=== PATIENT | female | born 1985 | race Caucasian/White ===

== ENCOUNTER 2017-05-27 01:12 | Observation (INO) | payer OTHER ==
[2017-05-27] MEDS ORDERED: MORPHINE SULFATE 4 MG/ML SYRINGE IV STA (01:58)
[2017-05-27] MEDS ORDERED: SODIUM CHLORIDE 0.9% 1,000 ML IV STA (01:58)
[2017-05-27] MEDS ORDERED: ONDANSETRON 4 MG/2 ML VIAL IVP STA ×2 (01:58→04:26)
[2017-05-27] MEDS ORDERED: RX INFO: IV CONTRAST WAS GIVEN 1 EACH MISC MISCELLANE PRN (02:00)
[2017-05-27] MEDS ORDERED: KETOROLAC 30 MG/ML 1 ML VIAL IVP STA (02:24)
[2017-05-27 02:35] LABS: Appearance,Urine Clear (Clear); PH, Urine 5.5 (5.0-8.0); Protein,Urine Negative (Negative); Specific Gravity,Urine 1.014 (1.001-1.035)
[2017-05-27 02:36] LABS: Basophils # (A) 0.1 k/uL (0-0.2); Basophils % (A) 1 %; Bilirubin,Urine Negative (Negative); CH 26.5; CHCM 33.1; Eosinophils # (A) 0.2 k/uL (0-0.7); Eosinophils % (A) 2 %; Glucose,Urine (UA) Trace (Negative); HCT 35.1 % (34.0-46.0); HDW 2.75; HGB 11.5 gm/dL (11.4-16.0); Ketones,Urine Negative (Negative); Leukocyte Esterase,Urine Negative (Negative); Luc # (Auto) 0.21; Luc % (Auto) 2; Lymphocytes # (A) 2.5 k/uL (1.0-4.8); Lymphocytes % (A) 22 %; MCH 26.3 pg (25.0-35.0); MCHC 32.7 g/dL (31.0-37.0); MCV 80.5 fL (80.0-100.0); Mean Platelet Volume 7.2; Monocytes # (A) 0.8 k/uL (0-1.0); Monocytes % (A) 7 %; Neutrophils # (A) 7.6 k/uL (1.3-7.7); Neutrophils % (A) 67 %; Nitrite,Urine Negative (Negative); RBC 4.36 m/uL (3.80-5.40); RDW 14.2 % (11.5-15.5); UA Billing (MACRO vs. MICRO) CHEM; Urobilinogen,Urine <2.0 mg/dL (<2.0); WBC 11.4 k/uL (3.8-10.6); WBC (Perox) 11.02
[2017-05-27 02:43] LABS: ALT 30 U/L (9-52); AST 15 U/L (14-36); Alkaline Phosphatase 81 U/L (38-126); Amylase 59 U/L (30-110); Anion Gap 8 mmol/L; Blood Urea Nitrogen 11 mg/dL (7-17); Carbon Dioxide 26 mmol/L (22-30); Chloride 104 mmol/L (98-107); Glucose 96 mg/dL (74-99); Non-African American GFR(MDRD) >60 (>60 ml/min/1.73 sqM); Potassium 4.1 mmol/L (3.5-5.1); Sodium 138 mmol/L (137-145); Total Bilirubin 0.2 mg/dL (0.2-1.3); Total Protein 6.4 g/dL (6.3-8.2)
[2017-05-27 02:45] LABS: Partial Thromboplastin Time 24.5 sec (22.0-30.0)
[2017-05-27 02:47] LABS: Prothrombin Time 10.1 sec (9.0-12.0)
--- NOTE | 2017-05-27 03:34 | CT ---
EXAM: CT Abdomen and Pelvis With Intravenous Contrast CLINICAL HISTORY: Reason: RLQ pain, Hernia mesh repair TECHNIQUE: Axial computed tomography images of the abdomen and pelvis with intravenous contrast. CTDI is 36.30 mGy and DLP is 1376.10 mGy-cm. This CT exam was performed using one or more of the following dose reduction techniques: automated exposure control, adjustment of the mA and/or kV according to patient size, and/or use of iterative reconstruction technique. COMPARISON: 10/07/2016 FINDINGS: Lower thorax: No acute findings. ABDOMEN: Liver: Diffuse fatty infiltration of the liver. Gallbladder and bile ducts: Unremarkable. No calcified stones. No ductal dilation. Pancreas: Unremarkable. No mass. No ductal dilation. Spleen: Unremarkable. No splenomegaly. Adrenals: Unremarkable. No mass. Kidneys and ureters: Unremarkable. No solid mass. No hydronephrosis. Stomach and bowel: Unremarkable. No obstruction. No mucosal thickening. Appendix: Normal appendix visualized. PELVIS: Bladder: Unremarkable. No mass. Reproductive: Unremarkable as visualized. ABDOMEN and PELVIS: Intraperitoneal space: Unremarkable. No free air. No significant fluid collection. Bones/joints: No acute fracture. No dislocation. Soft tissues: Redemonstration of very small fat-containing inguinal hernia. Stable postsurgical changes in the right inguinal region from hernia repair. No recurrence of hernia. More superiorly stable postsurgical changes adjacent to the abdominal rectus muscle. There is a 4.0 x 2.9 cm spiculated soft tissue collection which is isodense to the musculature. Previously this measured 3.8 2.9 cm. There is increased fat stranding noted within the subcutaneous fat extending out to the skin surface. The overlying skin appears indurated and inflamed, possibly from cellulitis. Etiology is uncertain, but this may be an old scar, granulation tissue. Vasculature: Unremarkable. No abdominal aortic aneurysm. Lymph nodes: Unremarkable. No enlarged lymph nodes. IMPRESSION: 1. Normal appendix visualized. 2. No acute intra-abdominal abnormalities. 3. Stable postsurgical changes within the right anterior abdomen adjacent to the rectus muscle. 4.0 x 2.9 cm spiculated soft tissue adjacent to the rectus muscle with overlying inflammation of the subcutaneous fat extending to the skin surface, which appears indurated and inflamed, possibly from cellulitis. This collection of soft tissue may represent old scar or granulation tissue.
[2017-05-27] MEDS ORDERED: PIPERACILLIN-TAZOBACTAM 3.375 GM in DEXTROSE/WATER 1 50ML.BAG IVPB STA (04:09)
--- NOTE | 2017-05-27 04:10 | ED ---
Abdominal Pain HPI - General Source: patient Mode of arrival: ambulatory Limitations: no limitations <Madeline Roberts - Last Filed: 05/27/17 04:23> <Linden Moran - Last Filed: 05/27/17 07:36> - General Chief Complaint: Abdominal Pain Stated Complaint: abd pain Time Seen by Provider: 05/27/17 01:40 - History of Present Illness Initial Comments: 31-year-old female presents emergency Department chief complaint of right lower quadrant pain over previous inguinal hernia repair site. Patient reports that she had the inguinal hernia repair by Dr. Ferrell a few years ago. Patient reports that initially the mesh did not adhere well and had a have a second repair. Patient reports that on Thursday she did complete a D & C by physicians in [place]. Patient reports that the fetus was approximately 6 weeks and it was an elective . Patient reports she's had no dysuria or any vaginal discharge besides minor spotting for the past few days. She reports that they had placed her on azithromycin and Flagyl after the surgery. She reports that she completed those antibiotics. Patient states she's had no specific fevers or chills. She reports that over the past day and half the by mouth the right lower quadrant occurred numbness radiating up the abdomen towards right flank. Patient denies any recent fever, chills, shortness of breath, chest pain, back pain, numbness or tingling, dysuria or hematuria, constipation or diarrhea, headaches or visual changes, or any other current symptoms (Madeline Roberts) - Related Data Home Medications Medication Instructions Recorded Confirmed Ibuprofen [Motrin] 800 mg PO Q8HR PRN 05/22/14 05/27/17 Allergies Allergy/AdvReac Type Severity Reaction Status Date / Time No Known Allergies Allergy Verified 05/27/17 05:21 Review of Systems ROS Other: All systems not noted in ROS Statement are negative. <Madeline Roberts - Last Filed: 05/27/17 04:23> ROS Other: All systems not noted in ROS Statement are negative. <Linden Moran - Last Filed: 05/27/17 07:36> ROS Statement: Those systems with pertinent positive or pertinent negative responses have been documented in the HPI. Past Medical History Past Medical History: No Reported History History of Any Multi-Drug Resistant Organisms: MRSA Date of last positivie culture/infection: 08/2011 MDRO Source:: thigh Past Surgical History: Adenoidectomy, Hernia Repair, Tonsillectomy Past Psychological History: Anxiety, Depression Smoking Status: Current some day smoker Past Alcohol Use History: None Reported Past Drug Use History: None Reported <Madeline Roberts - Last Filed: 05/27/17 04:23> General Exam Limitations: no limitations General appearance: alert, in no apparent distress Head exam: Present: atraumatic, normocephalic, normal inspection Eye exam: Present: normal appearance, PERRL, EOMI. Absent: scleral icterus, conjunctival injection, periorbital swelling ENT exam: Present: normal exam, mucous membranes moist Neck exam: Present: normal inspection. Absent: tenderness, meningismus, lymphadenopathy Respiratory exam: Present: normal lung sounds bilaterally. Absent: respiratory distress, wheezes, rales, rhonchi, stridor Cardiovascular Exam: Present: regular rate, normal rhythm, normal heart sounds. Absent: systolic murmur, diastolic murmur, rubs, gallop, clicks GI/Abdominal exam: Present: soft, tenderness (Patient has tenderness over the right lower quadrant over previous hernia incision repair. Evidence of ecchymosis around the hernia and swelling and bulging as well.), normal bowel sounds. Absent: distended, guarding, rebound, rigid Extremities exam: Present: normal inspection, full ROM, normal capillary refill. Absent: tenderness, pedal edema, joint swelling, calf tenderness Back exam: Present: normal inspection Neurological exam: Present: alert, oriented X3, CN II-XII intact Psychiatric exam: Present: normal affect, normal mood Skin exam: Present: warm, dry, intact, normal color. Absent: rash <Madeline Roberts - Last Filed: 05/27/17 04:23> <Linden Moran - Last Filed: 05/27/17 07:36> - General Exam Comments Initial Comments: Well-appearing 31-year-old female. No acute distress. (Madeline Roberts) Medical Decision Making - Lab Data Result diagrams: 05/27/17 02:18 05/27/17 02:18 - Radiology Data Radiology results: report reviewed <Madeline Roberts - Last Filed: 05/27/17 04:23> - Lab Data Result diagrams: 05/27/17 02:18 05/27/17 02:18 <Linden Moran - Last Filed: 05/27/17 07:36> - Medical Decision Making 31-year-old female chief complaint of 1 day of right lower quadrant abdominal pain over previous inguinal hernia repair site. She's noticed that there is been some bruising and swelling over the area. She also has had a recent D&C completed. Denies any vaginal discharge or urinary symptoms. Patient's lab work was reviewed. No evidence of any acute abnormalities. Patient's vital signs are stable. Given the significant bruising noted around the inguinal hernia repair and tenderness a CT abdomen and pelvis was performed. There is stable postsurgical changes within the right anterior abdomen adjacent to the rectus muscle. A 4.0 x 2 point centimeter spiculated soft tissue adjacent to the rectus muscle with overlying inflammation and subcutaneous fat extending through the skin surface. This appears to be indurated inflamed possibly from cellulitis. Collection of soft tissue may represent an old scar granulation tissue. No evidence of any other acute abnormalities. Discussed this case with Dr. Lindsay also examine the patient. At this time patient will be diagnosed with abdominal wall cellulitis, there is concern for possible small abscess starting to form at the inguinal hernia repair site. At this time patient is concerned of going home. We will keep her overnight started on Zosyn , fluids and pain control, and Patient can be evaluated by her surgeon Dr. Ferrell. (Madeline Roberts) I saw this patient in conjunction with the physician insurance legal assistant. I performed independent history and physical exam. Agree with case management. (Linden Moran) - Lab Data Lab Results 05/27/17 05/27/17 05/27/17 Range/Units 02:18 02:18 02:18 WBC 11.4 H (3.8-10.6) k/uL RBC 4.36 (3.80-5.40) m/uL Hgb 11.5 (11.4-16.0) gm/dL Hct 35.1 (34.0-46.0) % MCV 80.5 (80.0-100.0) fL MCH 26.3 (25.0-35.0) pg MCHC 32.7 (31.0-37.0) g/dL RDW 14.2 (11.5-15.5) % Plt Count 294 (150-450) k/uL Neutrophils % 67 % Lymphocytes % 22 % Monocytes % 7 % Eosinophils % 2 % Basophils % 1 % Neutrophils # 7.6 (1.3-7.7) k/uL Lymphocytes # 2.5 (1.0-4.8) k/uL Monocytes # 0.8 (0-1.0) k/uL Eosinophils # 0.2 (0-0.7) k/uL Basophils # 0.1 (0-0.2) k/uL PT (9.0-12.0) sec INR (<1.2) APTT (22.0-30.0) sec Sodium 138 (137-145) mmol/L Potassium 4.1 (3.5-5.1) mmol/L Chloride 104 (98-107) mmol/L Carbon Dioxide 26 (22-30) mmol/L Anion Gap 8 mmol/L BUN 11 (7-17) mg/dL Creatinine 0.60 (0.52-1.04) mg/dL Est GFR (MDRD) Af Amer >60 (>60 ml/min/1.73 sqM) Est GFR (MDRD) Non-Af >60 (>60 ml/min/1.73 sqM) Glucose 96 (74-99) mg/dL Calcium 9.0 (8.4-10.2) mg/dL Total Bilirubin 0.2 (0.2-1.3) mg/dL AST 15 (14-36) U/L ALT 30 (9-52) U/L Alkaline Phosphatase 81 (38-126) U/L Total Protein 6.4 (6.3-8.2) g/dL Albumin 3.6 (3.5-5.0) g/dL Amylase 59 (30-110) U/L Lipase 133 (23-300) U/L Urine Color Yellow Urine Appearance Clear (Clear) Urine pH 5.5 (5.0-8.0) Ur Specific [place] 1.014 (1.001-1.035) Urine Protein Negative (Negative) Urine Glucose (UA) Trace H (Negative) Urine Ketones Negative (Negative) Urine Blood Negative (Negative) Urine Nitrite Negative (Negative) Urine Bilirubin Negative (Negative) Urine Urobilinogen <2.0 (<2.0) mg/dL Ur Leukocyte Esterase Negative (Negative) 05/27/17 Range/Units 02:18 WBC (3.8-10.6) k/uL RBC (3.80-5.40) m/uL Hgb (11.4-16.0) gm/dL Hct (34.0-46.0) % MCV (80.0-100.0) fL MCH (25.0-35.0) pg MCHC (31.0-37.0) g/dL RDW (11.5-15.5) % Plt Count (150-450) k/uL Neutrophils % % Lymphocytes % % Monocytes % % Eosinophils % % Basophils % % Neutrophils # (1.3-7.7) k/uL Lymphocytes # (1.0-4.8) k/uL Monocytes # (0-1.0) k/uL Eosinophils # (0-0.7) k/uL Basophils # (0-0.2) k/uL PT 10.1 (9.0-12.0) sec INR 1.0 (<1.2) APTT 24.5 (22.0-30.0) sec Sodium (137-145) mmol/L Potassium (3.5-5.1) mmol/L Chloride (98-107) mmol/L Carbon Dioxide (22-30) mmol/L Anion Gap mmol/L BUN (7-17) mg/dL Creatinine (0.52-1.04) mg/dL Est GFR (MDRD) Af Amer (>60 ml/min/1.73 sqM) Est GFR (MDRD) Non-Af (>60 ml/min/1.73 sqM) Glucose (74-99) mg/dL Calcium (8.4-10.2) mg/dL Total Bilirubin (0.2-1.3) mg/dL AST (14-36) U/L ALT (9-52) U/L Alkaline Phosphatase (38-126) U/L Total Protein (6.3-8.2) g/dL Albumin (3.5-5.0) g/dL Amylase (30-110) U/L Lipase (23-300) U/L Urine Color Urine Appearance (Clear) Urine pH (5.0-8.0) Ur Specific [place] (1.001-1.035) Urine Protein (Negative) Urine Glucose (UA) (Negative) Urine Ketones (Negative) Urine Blood (Negative) Urine Nitrite (Negative) Urine Bilirubin (Negative) Urine Urobilinogen (<2.0) mg/dL Ur Leukocyte Esterase (Negative) - Radiology Data CT abdomen and pelvis shows normal appendix, no acute intra-abdominal abnormalities. There is a stable postsurgical changes in the right anterior abdomen adjacent to the rectus muscle. A 4.0 x 2.9 cm spiculated soft tissue adjacent to the rectus muscle overlying inflammation is extending to the skin surfaces noted. Appears to be indurated and inflamed and possibly from cellulitis. This collection of soft tissue may represent an old scar or granulation tissue. (Madeline Roberts) Disposition Time of Disposition: 04:12 <Madeline Roberts - Last Filed: 05/27/17 04:23> <Linden Moran - Last Filed: 05/27/17 07:36> Clinical Impression: History of incisional hernia repair, Cellulitis Disposition: ADMITTED IP TO THIS [facility] Condition: Good
[2017-05-27] MEDS ORDERED: ACETAMINOPHEN TAB 325 MG TAB PO PRN (04:12)
[2017-05-27] MEDS ORDERED: IBUPROFEN 400 MG TAB PO PRN (04:12)
[2017-05-27] MEDS ORDERED: MORPHINE SULFATE 4 MG/ML SYRINGE IV PRN (04:12)
[2017-05-27] MEDS ORDERED: NALOXONE 0.4 MG/ML 1 ML VIAL IV PRN (04:12)
[2017-05-27] MEDS ORDERED: ONDANSETRON 4 MG/2 ML VIAL IVP PRN (04:12)
[2017-05-27] MEDS ORDERED: SODIUM CHLORIDE 0.9% 1,000 ML IV SCH (04:15)
[2017-05-27 05:21] VITALS: BMI 35.4
[2017-05-27] MEDS: KETOROLAC 30 MG/ML 1 ML VIAL IVP PRN ×2 (08:21→14:53)
[2017-05-27 08:51] VITALS: RESP 18
[2017-05-27] MEDS ORDERED: FAMOTIDINE 20 MG TAB PO SCH (09:00)
[2017-05-27] MEDS ORDERED: PIPERACILLIN-TAZOBACTAM 3.375 GM in DEXTROSE/WATER 1 50ML.BAG IVPB SCH (13:00)
[2017-05-27 16:21] VITALS: BP 112/84; PULSE 72; TEMP 97.6
--- NOTE | 2017-05-27 16:27 | P.GSHP ---
History of Present Illness H&P Date: 05/27/17 Chief Complaint: Pain and lump in the right lower abdomen The patient had sudden onset of pain and lump in the right lower abdomen several days ago. She denies any known trauma to the area. She denies fever or chills. She was concerned about the color being reddish so she came into the emergency department. She was admitted with IV antibiotics to rule out cellulitis. She is status post selective . Denies any vaginal discharge. She has had right inguinal hernia repair 2 in the past. She's had multiple CTs of this over the last few years due to some ongoing pain. The computed tomography scan shows a stable area of likely scar tissue. And this is going back to 2013. - Review of Systems All systems: negative Past Medical History Past Medical History: Thyroid Disorder Additional Past Medical History / Comment(s): inguinal hernia x2 History of Any Multi-Drug Resistant Organisms: MRSA Date of last positivie culture/infection: 08/2011 MDRO Source:: thigh Past Surgical History: Adenoidectomy, Section, Hernia Repair, Tonsillectomy Past Anesthesia/Blood Transfusion Reactions: No Reported Reaction Past Psychological History: Anxiety, Depression Smoking Status: Former smoker Past Alcohol Use History: Occasional Past Drug Use History: None Reported - Past Family History Son(s) Additional Family Medical History / Comment(s): autism Grandmother Family Medical History: Blood Disorder, Congestive Heart Failure (CHF), Diabetes Mellitus, Hyperlipidemia Medications and Allergies Home Medications Medication Instructions Recorded Confirmed Type Ibuprofen [Motrin] 800 mg PO Q8HR PRN 05/22/14 05/27/17 History Levothyroxine Sodium [Synthroid] 25 mcg PO DAILY 05/27/17 05/27/17 History Allergies Allergy/AdvReac Type Severity Reaction Status Date / Time No Known Allergies Allergy Verified 05/27/17 08:30 Surgical - Exam Osteopathic Statement: *. No significant issues noted on an osteopathic structural exam other than those noted in the History and Physical/Consult. Vital Signs Temp Pulse Resp BP Pulse Ox 99 F 104 H 20 155/74 100 05/27/17 01:30 05/27/17 01:30 05/27/17 01:30 05/27/17 01:30 05/27/17 01:30 - General well developed, well nourished, no distress - Eyes normal ocular movement - ENT no hearing loss - Neck trachea midline - Respiratory normal respiratory effort - Abdomen Abdomen: soft, tender (Right lower quadrant), masses (She has a area about 6 x 9 cm of red colored ecchymosis with swelling and induration. This does not appear to be cellulitis) - Psychiatric oriented to time, oriented to person, oriented to place, speech is normal, memory intact Results - Labs 05/27/17 02:18 05/27/17 02:18 Abnormal Lab Results - Last 24 Hours (Table) 05/27/17 05/27/17 Range/Units 02:18 02:18 WBC 11.4 H (3.8-10.6) k/uL Urine Glucose (UA) Trace H (Negative) Diabetes panel 05/27/17 Range/Units 02:18 Sodium 138 (137-145) mmol/L Potassium 4.1 (3.5-5.1) mmol/L Chloride 104 (98-107) mmol/L Carbon Dioxide 26 (22-30) mmol/L BUN 11 (7-17) mg/dL Creatinine 0.60 (0.52-1.04) mg/dL Glucose 96 (74-99) mg/dL Calcium 9.0 (8.4-10.2) mg/dL AST 15 (14-36) U/L ALT 30 (9-52) U/L Alkaline Phosphatase 81 (38-126) U/L Total Protein 6.4 (6.3-8.2) g/dL Albumin 3.6 (3.5-5.0) g/dL Calcium panel 05/27/17 Range/Units 02:18 Calcium 9.0 (8.4-10.2) mg/dL Albumin 3.6 (3.5-5.0) g/dL Pituitary panel 05/27/17 Range/Units 02:18 Sodium 138 (137-145) mmol/L Potassium 4.1 (3.5-5.1) mmol/L Chloride 104 (98-107) mmol/L Carbon Dioxide 26 (22-30) mmol/L BUN 11 (7-17) mg/dL Creatinine 0.60 (0.52-1.04) mg/dL Glucose 96 (74-99) mg/dL Calcium 9.0 (8.4-10.2) mg/dL Adrenal panel 07/19/17 Range/Units 02:18 Sodium 138 (137-145) mmol/L Potassium 4.1 (3.5-5.1) mmol/L Chloride 104 (98-107) mmol/L Carbon Dioxide 26 (22-30) mmol/L BUN 11 (7-17) mg/dL Creatinine 0.60 (0.52-1.04) mg/dL Glucose 96 (74-99) mg/dL Calcium 9.0 (8.4-10.2) mg/dL Total Bilirubin 0.2 (0.2-1.3) mg/dL AST 15 (14-36) U/L ALT 30 (9-52) U/L Alkaline Phosphatase 81 (38-126) U/L Total Protein 6.4 (6.3-8.2) g/dL Albumin 3.6 (3.5-5.0) g/dL - Imaging CT scan - abdomen: report reviewed, image reviewed Assessment and Plan (1) Hematoma Status: Acute (2) Groin pain, chronic, right Status: Acute Plan: This appears to be a hematoma rather than cellulitis. Possibly related to positioning for her D&C. The slight leukocytosis is likely due to her recent procedure. She has not had a fever since admission. She has a chronic area of scar tissue in the groin from previous surgeries. This appears stable back to 2013. We'll switch her over to oral pain medications. Discontinue the antibiotics. Have her place ice on the area 3-4 times a day. I'll see her in the office Thursday or Thursday.
[2017-05-27] MEDS ORDERED: HYDROcodone/APAP 5-325MG 1 EACH TAB PO PRN (16:31)
[2017-05-27] MEDS ORDERED: IBUPROFEN 800 MG TAB PO PRN (16:32)
[2017-05-28] MEDS ORDERED: LEVOTHYROXINE 25 MCG TAB PO SCH (06:30)
--- NOTE | 2017-06-04 15:14 | P.DS ---
Providers Date of admission: 05/27/17 04:12 Expected date of discharge: 05/27/17 Attending physician: Juanito Purvis Primary care physician: Xavier Gomez - Discharge Diagnosis(es) (1) Hematoma Status: Acute (2) Groin pain, chronic, right Status: Acute Hospital Course: The patient presented with pain and swelling in the right groin. She was admitted to evaluate for cellulitis or abscess. She had some chronic pain and swelling in the right groin which is been present several years. Her computed tomography scan was stable from 2013. She was admitted and given IV antibiotics. I started the next day. This appeared to be a hematoma rather than cellulitis. There was ecchymosis visible from deeper in the subcutaneous tissues. The skin itself was without cellulitis. Pertinent Studies: Computed tomography scan, lab Patient Condition at Discharge: Good Plan - Discharge Summary New Discharge Prescriptions: No Action Ibuprofen [Motrin] 800 mg PO Q8HR PRN PRN Reason: Pain Levothyroxine Sodium [Synthroid] 25 mcg PO DAILY traMADol HCl [Ultram] 50 - 100 mg PO Q6H PRN #20 tab PRN Reason: Pain Discharge Medication List Ibuprofen [Motrin] 800 mg PO Q8HR PRN 05/22/14 [History] Levothyroxine Sodium [Synthroid] 25 mcg PO DAILY 05/27/17 [History] traMADol HCl [Ultram] 50 - 100 mg PO Q6H PRN #20 tab 05/28/17 [Rx] Follow up Appointment(s)/Referral(s): Delaney Ferrell DO [Doctor of Osteopathic Medicine] - (Follow-up 5-7 days.) Xavier Gomez DO [Primary Care Provider] - 1-2 days Activity/Diet/Wound Care/Special Instructions: Use ice pack to the area 3-4 times a day for 15 minutes. Continue this for 1 week. The firmness and redness will not significantly improved for several weeks. Notify provider if you develop fever or chills, or if the area becomes significantly larger. Continue diet as tolerated. Continue activity as tolerated. Take pain medication as ordered. Discharge Disposition: HOME SELF-CARE
== END 2017-05-27 19:06 | disposition home or self-care (01) ==
LOC: EC 01:12 → 6PED 04:12
PROVIDERS: ADMIT Surgery; ATTEND Surgery
DX: R10.31 Right lower quadrant pain (principal); G89.29 Other chronic pain; E03.9 Hypothyroidism, unspecified; Z98.890 Other specified postprocedural states; F17.200 Nicotine dependence, unspecified, uncomplicated; Z86.14 Personal history of Methicillin resistant Staphylococcus aureus infection; X58.XXXA Exposure to other specified factors, initial encounter
CPT/HCPCS: 96361 ×2; 96365; 96366; 96376; 96375; 99285; 36415; 80053; 82150; 83690; 85025; 85610; 85730; 81003; 87040; 74177; G0378; J2270; J2405; J1885; J2543; Q9967

== ENCOUNTER 2017-05-28 10:49 | Emergency (ER) | payer OTHER ==
[2017-05-28] MEDS ORDERED: SODIUM CHLORIDE 0.9% 1,000 ML IV STA (11:38)
--- NOTE | 2017-05-28 11:46 | ED ---
Abdominal Pain HPI - General Chief Complaint: Abdominal Pain Stated Complaint: abd pain with bruise Time Seen by Provider: 05/28/17 11:28 Source: patient Mode of arrival: ambulatory Limitations: no limitations - History of Present Illness Initial Comments: This 31-year-old white female presents with some right lower quadrant abdominal pain. She states that it is more on her abdominal wall. She has had some swelling and erythema. She had an elective D&C done this past week at [facility] in [place]. She had been doing well up until 2 days ago when she developed the swelling and pain in her right lower quadrant. She was seen in the emergency department at that time and admitted to the hospital. She had a computed tomography scan which showed some inflammation and swelling in that area potentially consistent with a cellulitis. She was admitted to the hospital and placed on antibiotics. She followed up with her surgeon, Dr. Ferrell , and she felt that this was more of a hematoma possibly related to positioning during her recent surgery. The patient's antibiotics were discontinued and she was discharged from the hospital yesterday. She states that the swelling has increased. She has similar pain as before. The uric edema has spread medially. She has taken Motrin for it. She denies any actual fever. She does relate that she had some vaginal bleeding today. No other complaints or modifying factors. She is currently being worked up for possible endometriosis. - Related Data Home Medications Medication Instructions Recorded Confirmed Ibuprofen [Motrin] 800 mg PO Q8HR PRN 05/22/14 05/28/17 Levothyroxine Sodium [Synthroid] 25 mcg PO DAILY 05/27/17 05/28/17 Previous Rx's Medication Instructions Recorded HYDROcodone/APAP 5-325MG [[place] 1 tab PO Q4H PRN #30 tab 05/27/17 5-325] traMADol HCl [Ultram] 50 - 100 mg PO Q6H PRN #20 tab 05/28/17 Allergies Allergy/AdvReac Type Severity Reaction Status Date / Time No Known Allergies Allergy Verified 05/28/17 11:08 Review of Systems ROS Statement: Those systems with pertinent positive or pertinent negative responses have been documented in the HPI. ROS Other: All systems not noted in ROS Statement are negative. Past Medical History Past Medical History: Thyroid Disorder Additional Past Medical History / Comment(s): inguinal hernia x2 History of Any Multi-Drug Resistant Organisms: MRSA Date of last positivie culture/infection: 08/2011 MDRO Source:: thigh Past Surgical History: Adenoidectomy, Section, Hernia Repair, Tonsillectomy Additional Past Surgical History / Comment(s): d and C Past Anesthesia/Blood Transfusion Reactions: No Reported Reaction Past Psychological History: Anxiety, Depression Smoking Status: Former smoker Past Alcohol Use History: Occasional Past Drug Use History: None Reported - Past Family History Son(s) Additional Family Medical History / Comment(s): autism Grandmother Family Medical History: Blood Disorder, Congestive Heart Failure (CHF), Diabetes Mellitus, Hyperlipidemia General Exam - General Exam Comments Initial Comments: GENERAL: The patient is well nourished and well hydrated. VITAL SIGNS: Heart rate, blood pressure, respiratory rate reviewed as recorded in nurse's notes. EYES: Pupils are round and reactive. Extraocular movements are intact. No conjunctival / lid redness or swelling. ENT: No external evidence of injury, swelling, or ecchymosis. Airway is patent. Throat is clear. NECK: Nontender. No swelling or evidence of injury. No subcutaneous emphysema. Trachea is midline. No thyroid mass. HEART: Regular rate and rhythm. Good peripheral pulses. LUNGS/CHEST: Breath sounds clear and equal bilaterally. No rales, rhonchi, or wheezes. No ecchymosis, subcutaneous emphysema, or tenderness. ABDOMEN: There is some tenderness swelling and erythema noted to the right lower quadrant. No definite fluctuance identified. No other areas of tenderness throughout the abdomen. No palpable masses or organomegaly. No peritoneal signs. EXTREMITIES: No extremity tenderness. Normal muscle tone and function. No thoracolumbar tenderness. NEUROLOGIC: Sensation is grossly intact. Cranial nerve exam reveals face is symmetrical, tongue is midline, speech is clear. SKIN: There is erythema and swelling noted to the right lower quadrant. No other rash identified. PSYCHIATRIC: Alert and oriented. Appropriate behavior and judgment. Limitations: no limitations Course Vital Signs 05/28/17 05/28/17 05/28/17 10:57 12:18 13:23 Temperature 97.4 F L Pulse Rate 95 81 83 Respiratory 16 18 18 Rate Blood Pressure 137/85 113/83 113/71 O2 Sat by Pulse 93 L 98 97 Oximetry Medical Decision Making - Medical Decision Making The patient was seen and examined. All diagnostics were reviewed. The white blood cell count and hemoglobin are quite stable. Remainder of labs are normal. An ultrasound was done of the abdominal wall and this does show some slight Kirill changes without any abscess. The case is discussed with Dr. Ferrell. Overall this is not consistent with an abscess. It seems as though it potentially could be related to an endometrioma. She apparently is being worked up for possible endometritis right now. It is felt as though she is stable for discharge and follow-up with Dr. Ferrell this next week. She is instructed to maintain ice to the area. She states that the [place] makes her sick and she cannot take these so will be provided some Ultram instead. She receives 0.5 mg of Dilaudid in the ER. She leaves in no identifiable distress. - Lab Data Result diagrams: 05/28/17 12:00 05/28/17 12:00 Lab Results 05/28/17 05/28/17 05/28/17 Range/Units 12:00 12:00 12:00 WBC 9.9 (3.8-10.6) k/uL RBC 4.26 (3.80-5.40) m/uL Hgb 11.5 (11.4-16.0) gm/dL Hct 33.9 L (34.0-46.0) % MCV 79.6 L (80.0-100.0) fL MCH 27.1 (25.0-35.0) pg MCHC 34.0 (31.0-37.0) g/dL RDW 13.7 (11.5-15.5) % Plt Count 299 (150-450) k/uL Neutrophils % 73 % Lymphocytes % 17 % Monocytes % 6 % Eosinophils % 2 % Basophils % 1 % Neutrophils # 7.3 (1.3-7.7) k/uL Lymphocytes # 1.7 (1.0-4.8) k/uL Monocytes # 0.6 (0-1.0) k/uL Eosinophils # 0.2 (0-0.7) k/uL Basophils # 0.1 (0-0.2) k/uL PT 9.8 (9.0-12.0) sec INR 1.0 (<1.2) APTT 24.7 (22.0-30.0) sec Sodium 140 (137-145) mmol/L Potassium 4.1 (3.5-5.1) mmol/L Chloride 104 (98-107) mmol/L Carbon Dioxide 26 (22-30) mmol/L Anion Gap 10 mmol/L BUN 10 (7-17) mg/dL Creatinine 0.62 (0.52-1.04) mg/dL Est GFR (MDRD) Af Amer >60 (>60 ml/min/1.73 sqM) Est GFR (MDRD) Non-Af >60 (>60 ml/min/1.73 sqM) Glucose 77 (74-99) mg/dL Calcium 9.0 (8.4-10.2) mg/dL Total Bilirubin 0.3 (0.2-1.3) mg/dL AST 21 (14-36) U/L ALT 30 (9-52) U/L Alkaline Phosphatase 71 (38-126) U/L Total Protein 6.9 (6.3-8.2) g/dL Albumin 3.8 (3.5-5.0) g/dL Disposition Clinical Impression: History of incisional hernia repair, Abdominal wall pain, Endometrioma, Hematoma Disposition: HOME SELF-CARE Condition: Good Instructions: Abdominal Pain (ED) Additional Instructions: Please stop the norco. Prescriptions: traMADol HCl [Ultram] 50 - 100 mg PO Q6H PRN #20 tab PRN Reason: Pain Referrals: Xavier Gomez DO [Primary Care Provider] - 1-2 days Delaney Ferrell DO [Doctor of Osteopathic Medicine] - 06/01/17 Time of Disposition: 13:51
[2017-05-28 12:14] LABS: Basophils # (A) 0.1 k/uL (0-0.2); Basophils % (A) 1 %; CH 26.4; CHCM 33.3; Eosinophils # (A) 0.2 k/uL (0-0.7); Eosinophils % (A) 2 %; HCT 33.9 % (34.0-46.0); HDW 2.84; HGB 11.5 gm/dL (11.4-16.0); Luc # (Auto) 0.16; Luc % (Auto) 2; Lymphocytes # (A) 1.7 k/uL (1.0-4.8); Lymphocytes % (A) 17 %; MCH 27.1 pg (25.0-35.0); MCV 79.6 fL (80.0-100.0); Mean Platelet Volume 7.1; Monocytes # (A) 0.6 k/uL (0-1.0); Monocytes % (A) 6 %; Neutrophils # (A) 7.3 k/uL (1.3-7.7); Neutrophils % (A) 73 %; RBC 4.26 m/uL (3.80-5.40); RDW 13.7 % (11.5-15.5); WBC 9.9 k/uL (3.8-10.6); WBC (Perox) 10.51
[2017-05-28 12:29] LABS: ALT 30 U/L (9-52); AST 21 U/L (14-36); Alkaline Phosphatase 71 U/L (38-126); Anion Gap 10 mmol/L; Blood Urea Nitrogen 10 mg/dL (7-17); Carbon Dioxide 26 mmol/L (22-30); Chloride 104 mmol/L (98-107); Glucose 77 mg/dL (74-99); Non-African American GFR(MDRD) >60 (>60 ml/min/1.73 sqM); Potassium 4.1 mmol/L (3.5-5.1); Sodium 140 mmol/L (137-145); Total Bilirubin 0.3 mg/dL (0.2-1.3); Total Protein 6.9 g/dL (6.3-8.2)
[2017-05-28 12:35] LABS: Partial Thromboplastin Time 24.7 sec (22.0-30.0); Prothrombin Time 9.8 sec (9.0-12.0)
--- NOTE | 2017-05-28 13:23 | US ---
EXAMINATION TYPE: US abdomen limited DATE OF EXAM: 05/28/2017 COMPARISON: NONE CLINICAL HISTORY: Abd wall pain and swelling. Complex area visualized RLQ measuring 1.7 x 1.1 x 0.51 cm IMPRESSION: Complex area of abnormal echogenicity at the site of clinical concern likely reflects ph legmon from recent surgical intervention. Drainable abscess is not appreciated.
[2017-05-28 13:25] VITALS: PULSE 83
[2017-05-28] MEDS ORDERED: HYDROmorphone 1 MG/ML 1 ML SYRINGE IVP STA (13:35)
[2017-05-28 14:23] VITALS: BP 119/60; RESP 16; TEMP 98.2
== END 2017-05-28 14:26 | disposition home or self-care (01) ==
LOC: EC 10:49
DX: N99.840 Postprocedural hematoma of a genitourinary system organ or structure following a genitourinary system procedure (principal); N80.9 Endometriosis, unspecified; E07.9 Disorder of thyroid, unspecified; Z87.891 Personal history of nicotine dependence; Z79.899 Other long term (current) drug therapy; Y84.8 Other medical procedures as the cause of abnormal reaction of the patient, or of later complication, without mention of misadventure at the time of the procedure
CPT/HCPCS: 99284; 96374; 96361 ×2; 36415; 80053; 85025; 85610; 85730; 87040; 76705; J1170

== ENCOUNTER 2017-05-29 15:23 | Observation (INO) | payer OTHER ==
[2017-05-29] MEDS ORDERED: SODIUM CHLORIDE 0.9% 1,000 ML IV STA (16:57)
[2017-05-29] MEDS: MORPHINE SULFATE 4 MG/ML SYRINGE IV STA ×2 (17:38→17:46)
[2017-05-29] MEDS ORDERED: ONDANSETRON 4 MG/2 ML VIAL IVP STA (17:45)
--- NOTE | 2017-05-29 17:48 | ED ---
Abdominal Pain HPI <Xavier Mendoza - Last Filed: 05/29/17 19:53> - General Source: patient, RN notes reviewed, old records reviewed Mode of arrival: ambulatory Limitations: no limitations <Madeline Roberts - Last Filed: 05/29/17 20:01> - General Chief Complaint: Abdominal Pain Stated Complaint: revisit endometriosis Time Seen by Provider: 05/29/17 16:43 - History of Present Illness Initial Comments: 31-year-old female chief complaint of increased swelling and bruising and pain over the right lower quadrant. Patient was evaluated 2 days ago and admitted for possible infection around her previous inguinal hernia site. She was then discharged and is continued on antibiotic. Patient reports he was seen in the emergency department 2 days ago and is told that she has likely an endometrioma. Patient reports that the bruising and swelling is became worse over the right left right lower quadrant. She sates that the pain is now radiating up towards the abdomen. She reports that she's been worked up for Zofran endometriosis. 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 (Madeline Roberts) - Related Data Home Medications Medication Instructions Recorded Confirmed Ibuprofen [Motrin] 800 mg PO Q8HR PRN 05/22/14 05/29/17 Levothyroxine Sodium [Synthroid] 25 mcg PO DAILY 05/27/17 05/29/17 Previous Rx's Medication Instructions Recorded traMADol HCl [Ultram] 50 - 100 mg PO Q6H PRN #20 tab 05/28/17 Allergies Allergy/AdvReac Type Severity Reaction Status Date / Time No Known Allergies Allergy Verified 05/29/17 16:53 Review of Systems ROS Other: All systems not noted in ROS Statement are negative. <Xavier Mendoza - Last Filed: 05/29/17 19:53> ROS Other: All systems not noted in ROS Statement are negative. <Madeline Roberts - Last Filed: 05/29/17 20:01> ROS Statement: Those systems with pertinent positive or pertinent negative responses have been documented in the HPI. Past Medical History Past Medical History: Thyroid Disorder Additional Past Medical History / Comment(s): inguinal hernia x2 History of Any Multi-Drug Resistant Organisms: MRSA Date of last positivie culture/infection: 08/2011 MDRO Source:: thigh Past Surgical History: Adenoidectomy, Section, Hernia Repair, Tonsillectomy Additional Past Surgical History / Comment(s): d and C Past Anesthesia/Blood Transfusion Reactions: No Reported Reaction Past Psychological History: Anxiety, Depression Smoking Status: Former smoker Past Alcohol Use History: Occasional Past Drug Use History: None Reported - Past Family History Son(s) Additional Family Medical History / Comment(s): autism Grandmother Family Medical History: Blood Disorder, Congestive Heart Failure (CHF), Diabetes Mellitus, Hyperlipidemia <Madeline Roberts - Last Filed: 05/29/17 20:01> General Exam <Xavier Mendoza - Last Filed: 05/29/17 19:53> Limitations: no limitations General appearance: alert, in no apparent distress Head exam: Present: atraumatic, normocephalic, normal inspection Eye exam: Present: normal appearance, PERRL, EOMI. Absent: scleral icterus, conjunctival injection, periorbital swelling ENT exam: Present: normal exam, mucous membranes moist Neck exam: Present: normal inspection. Absent: tenderness, meningismus, lymphadenopathy Respiratory exam: Present: normal lung sounds bilaterally. Absent: respiratory distress, wheezes, rales, rhonchi, stridor Cardiovascular Exam: Present: regular rate, normal rhythm, normal heart sounds. Absent: systolic murmur, diastolic murmur, rubs, gallop, clicks GI/Abdominal exam: Present: soft, tenderness (tenderness and ecchymosis on RLQ tenderness. Bruising and swelling has worsened. ), normal bowel sounds. Absent : distended, guarding, rebound, rigid Extremities exam: Present: normal inspection, full ROM, normal capillary refill. Absent: pedal edema, joint swelling, calf tenderness Back exam: Present: normal inspection Neurological exam: Present: alert, oriented X3, CN II-XII intact Psychiatric exam: Present: normal affect, normal mood Skin exam: Present: warm, dry, intact, normal color. Absent: rash <Madeline Roberts - Last Filed: 05/29/17 20:01> - General Exam Comments Initial Comments: 31-year-old female. No acute distress. (Madeline Roberts) Medical Decision Making - Lab Data Result diagrams: 05/29/17 17:09 05/29/17 17:09 <Xavier Mendoza - Last Filed: 05/29/17 19:53> - Lab Data Result diagrams: 05/29/17 17:09 05/29/17 17:09 - Radiology Data Radiology results: report reviewed <Madeline Roberts - Last Filed: 05/29/17 20:01> - Medical Decision Making she was seen 2 days ago and at that time a CAT scan report suggested a 3 x 4 cm area of soft tissue irregularity possible abscess. Since that time the area in question has quadrupled in size. Exquisitely tender. White count still only 10.5. Case is discussed with Dr. dr lara on-call for Dr. Ferrell the patient' s general surgeon. Patient be admitted to her service with pain management and antibiotics. Dr. Mendoza (Xavier Mendoza) 31-year-old female chief complaint of increased swelling and bruising and pain over the right lower quadrant. Patient was evaluated 2 days ago and admitted for possible infection around her previous inguinal hernia site. She was then discharged and is discontinued on antibiotic. Patient reports he was seen in the emergency department 2 days ago and is told that she has likely an endometrioma. Patient reports that the bruising and swelling is became worse over the right left right lower quadrant. She sates that the pain is now radiating up towards the abdomen. Patient's lab work was reviewed and negative for any acute process. Patient received a transvaginal ultrasound which was negative for any fluid within the abdomen. Right ovary was visualized and normal. Left ovary was difficult to visualize due to overlying bowel gas. The report was given tibial verbally by the hvac tech. Patient images not be able to be sent to the radiologist at this time. Discussed the case with Dr. Mendoza examine the patient. Given the increasing tenderness and swelling and bruising over the area patient will be evaluated by surgery. Started on antibiotics tonight. (ArmandoMadeline) - Lab Data Lab Results 05/29/17 05/29/17 05/29/17 Range/Units 17:09 17:09 17:09 WBC 10.6 (3.8-10.6) k/uL RBC 4.17 (3.80-5.40) m/uL Hgb 11.3 L (11.4-16.0) gm/dL Hct 34.3 (34.0-46.0) % MCV 82.3 (80.0-100.0) fL MCH 27.1 (25.0-35.0) pg MCHC 33.0 (31.0-37.0) g/dL RDW 14.7 (11.5-15.5) % Plt Count 356 (150-450) k/uL Neutrophils % 65 % Lymphocytes % 23 % Monocytes % 7 % Eosinophils % 3 % Basophils % 1 % Neutrophils # 6.9 (1.3-7.7) k/uL Lymphocytes # 2.4 (1.0-4.8) k/uL Monocytes # 0.7 (0-1.0) k/uL Eosinophils # 0.3 (0-0.7) k/uL Basophils # 0.1 (0-0.2) k/uL Sodium 141 (137-145) mmol/L Potassium 3.8 (3.5-5.1) mmol/L Chloride 105 (98-107) mmol/L Carbon Dioxide 24 (22-30) mmol/L Anion Gap 12 mmol/L BUN 12 (7-17) mg/dL Creatinine 0.60 (0.52-1.04) mg/dL Est GFR (MDRD) Af Amer >60 (>60 ml/min/1.73 sqM) Est GFR (MDRD) Non-Af >60 (>60 ml/min/1.73 sqM) Glucose 89 (74-99) mg/dL Calcium 9.3 (8.4-10.2) mg/dL Total Bilirubin 0.3 (0.2-1.3) mg/dL AST 24 (14-36) U/L ALT 37 (9-52) U/L Alkaline Phosphatase 74 (38-126) U/L Total Protein 7.5 (6.3-8.2) g/dL Albumin 4.3 (3.5-5.0) g/dL Amylase 68 (30-110) U/L Lipase 134 (23-300) U/L Urine Color Yellow Urine Appearance Clear (Clear) Urine pH 7.0 (5.0-8.0) Ur Specific Baxter 1.023 (1.001-1.035) Urine Protein Trace H (Negative) Urine Glucose (UA) 1+ H (Negative) Urine Ketones Negative (Negative) Urine Blood Negative (Negative) Urine Nitrite Negative (Negative) Urine Bilirubin Negative (Negative) Urine Urobilinogen 2.0 (<2.0) mg/dL Ur Leukocyte Esterase Negative (Negative) - Radiology Data Verbal report of ultrasound was obtained. integration technician was able to visualize right ovary with good color flow. Left ovary was unable to be visualized with concern for bowel gas coverage. There is no evidence of free fluid within the abdomen or pelvis. (Madeline Roberts) Disposition <Xavier Mendoza - Last Filed: 05/29/17 19:53> Time of Disposition: 20:00 <Madeline Roberts - Last Filed: 05/29/17 20:01> Clinical Impression: Abdominal wall hematoma, Abdominal wall abscess Disposition: ADMITTED IP TO THIS HOSP Condition: Stable Referrals: Xavier Gomez DO [Primary Care Provider] - 1-2 days
[2017-05-29 17:54] LABS: Appearance,Urine Clear (Clear); Bilirubin,Urine Negative (Negative); Glucose,Urine (UA) 1+ (Negative); Ketones,Urine Negative (Negative); Leukocyte Esterase,Urine Negative (Negative); Nitrite,Urine Negative (Negative); Protein,Urine Trace (Negative); Specific Gravity,Urine 1.023 (1.001-1.035); UA Billing (MACRO vs. MICRO) CHEM
[2017-05-29 17:57] LABS: Basophils # (A) 0.1 k/uL (0-0.2); Basophils % (A) 1 %; CH 27.2; CHCM 33.2; Eosinophils # (A) 0.3 k/uL (0-0.7); Eosinophils % (A) 3 %; HCT 34.3 % (34.0-46.0); HDW 2.74; HGB 11.3 gm/dL (11.4-16.0); Luc # (Auto) 0.18; Luc % (Auto) 2; Lymphocytes # (A) 2.4 k/uL (1.0-4.8); Lymphocytes % (A) 23 %; MCH 27.1 pg (25.0-35.0); MCV 82.3 fL (80.0-100.0); Mean Platelet Volume 7.3; Monocytes # (A) 0.7 k/uL (0-1.0); Monocytes % (A) 7 %; Neutrophils # (A) 6.9 k/uL (1.3-7.7); Neutrophils % (A) 65 %; RBC 4.17 m/uL (3.80-5.40); RDW 14.7 % (11.5-15.5); WBC 10.6 k/uL (3.8-10.6); WBC (Perox) 10.41
[2017-05-29 18:04] LABS: ALT 37 U/L (9-52); AST 24 U/L (14-36); Alkaline Phosphatase 74 U/L (38-126); Amylase 68 U/L (30-110); Anion Gap 12 mmol/L; Blood Urea Nitrogen 12 mg/dL (7-17); Calcium 9.3 mg/dL (8.4-10.2); Carbon Dioxide 24 mmol/L (22-30); Chloride 105 mmol/L (98-107); Glucose 89 mg/dL (74-99); Non-African American GFR(MDRD) >60 (>60 ml/min/1.73 sqM); Potassium 3.8 mmol/L (3.5-5.1); Sodium 141 mmol/L (137-145); Total Bilirubin 0.3 mg/dL (0.2-1.3); Total Protein 7.5 g/dL (6.3-8.2)
[2017-05-29] MEDS ORDERED: HYDROmorphone 1 MG/ML 1 ML SYRINGE IVP STA (19:48)
[2017-05-29] MEDS ORDERED: SODIUM CHLORIDE 0.9% 1,000 ML IV ONE (19:48)
[2017-05-29] MEDS ORDERED: HYDROmorphone 1 MG/ML 1 ML SYRINGE IV PRN (20:01)
[2017-05-29] MEDS ORDERED: ACETAMINOPHEN TAB 325 MG TAB PO PRN (20:01)
[2017-05-29] MEDS ORDERED: IBUPROFEN 400 MG TAB PO PRN (20:01)
[2017-05-29] MEDS ORDERED: ONDANSETRON 4 MG/2 ML VIAL IVP PRN (20:01)
[2017-05-29] MEDS ORDERED: NALOXONE 0.4 MG/ML 1 ML VIAL IV PRN (20:01)
[2017-05-29] MEDS ORDERED: PIPERACILLIN-TAZOBACTAM 3.375 GM in DEXTROSE/WATER 1 50ML.BAG IVPB STA (20:06)
[2017-05-29] MEDS: SODIUM CHLORIDE 0.9% 1,000 ML IV SCH (21:35)
[2017-05-29 21:52] VITALS: BMI 34.4
[2017-05-30] MEDS: KETOROLAC 30 MG/ML 1 ML VIAL IVP PRN ×2 (01:27→08:08)
[2017-05-30] MEDS: PIPERACILLIN-TAZOBACTAM 3.375 GM in DEXTROSE/WATER 1 50ML.BAG IVPB SCH ×2 (01:28→08:01)
[2017-05-30] MEDS: SODIUM CHLORIDE 0.9% 1,000 ML IV SCH ×2 (05:32→14:19)
[2017-05-30] MEDS ORDERED: LEVOTHYROXINE 25 MCG TAB PO SCH (06:30)
[2017-05-30 09:11] VITALS: BP 117/70; PULSE 67; RESP 15; TEMP 97.9
--- NOTE | 2017-05-30 13:15 | P.GSHP ---
History of Present Illness H&P Date: 05/29/17 Chief Complaint: Abdominal wall hematoma This a 22-year-old female who developed abdominal wall hematoma. The hematoma was located a previous incisional hernia scar. Patient went previous incisional hernia by Dr. Ferrell 2 years ago. Patient developed pain and mass over this area over the last one week. Patient had a CAT scan performed which shows indurated passed over the hernia repair. Suggestive of a hematoma. Past Medical History Past Medical History: Thyroid Disorder Additional Past Medical History / Comment(s): inguinal hernia x2 History of Any Multi-Drug Resistant Organisms: MRSA Date of last positivie culture/infection: 08/2011 MDRO Source:: thigh Past Surgical History: Adenoidectomy, Section, Hernia Repair, Tonsillectomy Additional Past Surgical History / Comment(s): d and C Past Anesthesia/Blood Transfusion Reactions: No Reported Reaction Past Psychological History: Anxiety, Depression Smoking Status: Former smoker Past Alcohol Use History: Occasional Past Drug Use History: None Reported - Past Family History Son(s) Additional Family Medical History / Comment(s): autism Grandmother Family Medical History: Blood Disorder, Congestive Heart Failure (CHF), Diabetes Mellitus, Hyperlipidemia Medications and Allergies Home Medications Medication Instructions Recorded Confirmed Type Ibuprofen [Motrin] 800 mg PO Q8HR PRN 05/22/14 05/29/17 History Levothyroxine Sodium [Synthroid] 25 mcg PO DAILY 05/27/17 05/29/17 History Allergies Allergy/AdvReac Type Severity Reaction Status Date / Time No Known Allergies Allergy Verified 05/30/17 02:09 Surgical - Exam Vital Signs Temp Pulse Resp BP Pulse Ox 98.7 F 93 18 121/63 98 05/29/17 15:45 05/29/17 15:45 05/29/17 15:45 05/29/17 15:45 05/29/17 15:45 - General well developed, no distress - Eyes PERRL - ENT normal pinna - Neck no masses - Respiratory normal expansion - Cardiovascular Rhythm: regular - Abdomen 8 cm hematoma in the right lower quadrant over the lateral aspect of her Pfannenstiel incision. Abdomen: soft, non tender Results - Labs 05/29/17 17:09 05/29/17 17:09 Abnormal Lab Results - Last 24 Hours (Table) 05/29/17 05/29/17 Range/Units 17:09 17:09 Hgb 11.3 L (11.4-16.0) gm/dL Urine Protein Trace H (Negative) Urine Glucose (UA) 1+ H (Negative) Diabetes panel 05/29/17 Range/Units 17:09 Sodium 141 (137-145) mmol/L Potassium 3.8 (3.5-5.1) mmol/L Chloride 105 (98-107) mmol/L Carbon Dioxide 24 (22-30) mmol/L BUN 12 (7-17) mg/dL Creatinine 0.60 (0.52-1.04) mg/dL Glucose 89 (74-99) mg/dL Calcium 9.3 (8.4-10.2) mg/dL AST 24 (14-36) U/L ALT 37 (9-52) U/L Alkaline Phosphatase 74 (38-126) U/L Total Protein 7.5 (6.3-8.2) g/dL Albumin 4.3 (3.5-5.0) g/dL Calcium panel 05/29/17 Range/Units 17:09 Calcium 9.3 (8.4-10.2) mg/dL Albumin 4.3 (3.5-5.0) g/dL Pituitary panel 05/29/17 Range/Units 17:09 Sodium 141 (137-145) mmol/L Potassium 3.8 (3.5-5.1) mmol/L Chloride 105 (98-107) mmol/L Carbon Dioxide 24 (22-30) mmol/L BUN 12 (7-17) mg/dL Creatinine 0.60 (0.52-1.04) mg/dL Glucose 89 (74-99) mg/dL Calcium 9.3 (8.4-10.2) mg/dL Adrenal panel 05/29/17 Range/Units 17:09 Sodium 141 (137-145) mmol/L Potassium 3.8 (3.5-5.1) mmol/L Chloride 105 (98-107) mmol/L Carbon Dioxide 24 (22-30) mmol/L BUN 12 (7-17) mg/dL Creatinine 0.60 (0.52-1.04) mg/dL Glucose 89 (74-99) mg/dL Calcium 9.3 (8.4-10.2) mg/dL Total Bilirubin 0.3 (0.2-1.3) mg/dL AST 24 (14-36) U/L ALT 37 (9-52) U/L Alkaline Phosphatase 74 (38-126) U/L Total Protein 7.5 (6.3-8.2) g/dL Albumin 4.3 (3.5-5.0) g/dL Assessment and Plan Plan: Abdominal wall hematoma. This may represent an endometrioma. Patient wishes to be discharged home today and follow with Dr. Angel next week. She appears to be stable for discharge.
--- NOTE | 2017-05-30 13:16 | P.DS ---
Providers Date of admission: 05/29/17 19:56 Expected date of discharge: 05/30/17 Attending physician: Delaney Ferrell Primary care physician: Xavier BrionesPatricia [facility] Course: This is a 31-year-old female who was admitted to the hospital with complaints of abdominal pain. She was found have an abdominal wall hematoma related to a previous incisional hernia repair. Please see chart for details. Patient Condition at Discharge: Good Plan - Discharge Summary New Discharge Prescriptions: No Action Ibuprofen [Motrin] 800 mg PO Q8HR PRN PRN Reason: Pain Levothyroxine Sodium [Synthroid] 25 mcg PO DAILY traMADol HCl [Ultram] 50 - 100 mg PO Q6H PRN #20 tab PRN Reason: Pain Discharge Medication List Ibuprofen [Motrin] 800 mg PO Q8HR PRN 05/22/14 [History] Levothyroxine Sodium [Synthroid] 25 mcg PO DAILY 05/27/17 [History] traMADol HCl [Ultram] 50 - 100 mg PO Q6H PRN #20 tab 05/28/17 [Rx] Follow up Appointment(s)/Referral(s): Xavier Gomez DO [Primary Care Provider] - 1-2 days Delaney Ferrell DO [Doctor of Osteopathic Medicine] - 1 Week
--- NOTE | 2017-06-01 10:39 | US ---
EXAMINATION TYPE: US transvaginal DATE OF EXAM: 06/01/2017 COMPARISON: Previous study dated 04/24/2013. CLINICAL HISTORY: Pain. TECHNIQUE: Date of LMP: 04/16/2017 EXAM MEASUREMENTS: Uterus: 7.8 x 4.6 x 4.7 cm Endometrial Stripe: 0.62 cm Right Ovary: 2.3 x 1.4 x 1.5 cm 1. Uterus: Anteverted 2. Endometrium: Small amount of fluid visualized 3. Right Ovary: wnl 4. Left Ovary: Obscured by overlying bowel gas Spectral, color and waveform doppler imaging shows good arterial and venous flow within the ovaries ; there is no evidence for ovarian torsion. 5. Bilateral Adnexa: wnl 6. Posterior cul-de-sac: wnl IMPRESSION: NORMAL PELVIC ULTRASOUND.
== END 2017-05-30 14:20 | disposition home or self-care (01) ==
LOC: EC 15:23 → INTOOBSV 19:56 → 3SUR 19:56
PROVIDERS: ADMIT Surgery; ATTEND Surgery
DX: S30.1XXA Contusion of abdominal wall, initial encounter (principal); E07.9 Disorder of thyroid, unspecified; F32.9 Major depressive disorder, single episode, unspecified; F41.9 Anxiety disorder, unspecified; Z87.891 Personal history of nicotine dependence; Z79.899 Other long term (current) drug therapy; Z83.3 Family history of diabetes mellitus; Z82.49 Family history of ischemic heart disease and other diseases of the circulatory system
CPT/HCPCS: 96376; 96366 ×2; 96375 ×2; 96361; 96365; 99285; 36415; 80053; 82150; 83690; 85025; 81003; 93976; 93975; 76830; G0378 ×2; J2270; J2405 ×2; J1885; J1170; J2543 ×2; 76856

== ENCOUNTER 2017-05-30 23:30 | Emergency (ER) | payer OTHER ==
[2017-05-31] MEDS ORDERED: HYDROmorphone 1 MG/ML 1 ML SYRINGE IVP STA (00:46)
--- NOTE | 2017-05-31 00:50 | ED ---
General Adult HPI - General Chief complaint: Abdominal Pain Stated complaint: abd pain Time Seen by Provider: 05/31/17 00:39 Source: patient, RN notes reviewed Mode of arrival: wheelchair Limitations: no limitations - History of Present Illness Initial comments: 31-year-old female presents to the emergency department with a chief complaint of the abdominal wall mass. Patient was informed that she has abdominal wall hematoma. Patient was admitted to the hospital and she left today due to her son and she is back because the pain medication wore off she is having pain. Patient states becoming very swollen and tender. Patient denies any recent procedures to the area. She did have a hernia that area in the past but Dr. Ferrell performed surgery on. Patient states that she went home and the pain worsened that she thought she should be. Patient states hematoma is increasing in size. Patient states that she has no fever chills like symptoms so she was concerned. Patient denies any recent fever, chills, shortness of breath, chest pain, back pain, nausea vomiting, numbness or tingling, dysuria or hematuria, constipation or diarrhea, headaches or visual changes, or any other current symptoms. - Related Data Home Medications Medication Instructions Recorded Confirmed Ibuprofen [Motrin] 800 mg PO Q8HR PRN 05/22/14 05/30/17 Levothyroxine Sodium [Synthroid] 25 mcg PO DAILY 05/27/17 05/30/17 Previous Rx's Medication Instructions Recorded traMADol HCl [Ultram] 50 - 100 mg PO Q6H PRN #20 tab 05/28/17 Allergies Allergy/AdvReac Type Severity Reaction Status Date / Time No Known Allergies Allergy Verified 05/30/17 23:53 Review of Systems ROS Statement: Those systems with pertinent positive or pertinent negative responses have been documented in the HPI. ROS Other: All systems not noted in ROS Statement are negative. Past Medical History Past Medical History: Thyroid Disorder Additional Past Medical History / Comment(s): inguinal hernia x2 History of Any Multi-Drug Resistant Organisms: MRSA Date of last positivie culture/infection: 08/2011 MDRO Source:: thigh Past Surgical History: Adenoidectomy, Section, Hernia Repair, Tonsillectomy Additional Past Surgical History / Comment(s): d and C on Thursday05/22/17 Past Anesthesia/Blood Transfusion Reactions: No Reported Reaction Past Psychological History: Anxiety, Depression Smoking Status: Former smoker Past Alcohol Use History: Occasional Past Drug Use History: None Reported - Past Family History Son(s) Additional Family Medical History / Comment(s): autism Grandmother Family Medical History: Blood Disorder, Congestive Heart Failure (CHF), Diabetes Mellitus, Hyperlipidemia General Exam - General Exam Comments Initial Comments: General: The patient is awake and alert, in no distress, and does not appear acutely ill. Eye: Pupils are equal, round and reactive to light, extra-ocular movements are intact; there is normal conjunctiva bilaterally. No signs of icterus. Ears, nose, mouth and throat: There are moist mucous membranes and no oral lesions. Neck: The neck is supple, there is no tenderness. Cardiovascular: There is a regular rate and rhythm. No murmur, rub or gallop is appreciated. Respiratory: Lungs are clear to auscultation, respirations are non-labored, breath sounds are equal. No wheezes, stridor, rales, or rhonchi. Gastrointestinal: Patient does appear to have abdominal wall bruising to the right lower quadrant area does appear to be hard to the area tender to touch over this area. Soft, non-distended, non-tender abdomen without masses or organomegaly noted. There is no rebound or guarding present. No CVA tenderness. Bowel sounds are unremarkable. Back: There is no tenderness to palpation in the midline. There is no obvious deformity. No rashes noted. Musculoskeletal: Normal ROM, no tenderness, There is no pedal edema. There is no calf tenderness or swelling. Sensation intact. Pulses equal bilaterally 2+. Neurological: CN II-XII intact, There are no obvious motor or sensory deficits. Coordination appears grossly intact. Speech is normal. Skin: Skin is warm and dry and no rashes or lesions are noted. Psychiatric: Cooperative, appropriate mood & affect, normal judgment. Limitations: no limitations Course Vital Signs 05/30/17 23:48 Temperature 97.7 F Pulse Rate 94 Respiratory 18 Rate Blood Pressure 117/72 O2 Sat by Pulse 98 Oximetry Medical Decision Making - Medical Decision Making 31-year-old female presents emergency Department with a chief complaint of abdominal wall mass. CAT scan does show suspicion for hematoma. At this time previous admissions previous work ups previous imaging was reviewed. This time we discussed that patient has seen 2 surgeons. They are suspicious of a hematoma. At this time we did discuss the need to follow-up with them on Thursday or Thursday. We did discuss return parameters. We did discuss correction what to watch for and all their questions. They stated they understood and they are in agreement with this plan. At this time they will be discharged home. - Lab Data Result diagrams: 05/31/17 01:05 05/31/17 01:05 Lab Results 05/31/17 05/31/17 Range/Units 01:05 01:05 WBC 8.3 (3.8-10.6) k/uL RBC 4.06 (3.80-5.40) m/uL Hgb 11.1 L (11.4-16.0) gm/dL Hct 33.1 L (34.0-46.0) % MCV 81.4 (80.0-100.0) fL MCH 27.4 (25.0-35.0) pg MCHC 33.6 (31.0-37.0) g/dL RDW 14.8 (11.5-15.5) % Plt Count 382 (150-450) k/uL Neutrophils % 55 % Lymphocytes % 30 % Monocytes % 7 % Eosinophils % 5 % Basophils % 1 % Neutrophils # 4.6 (1.3-7.7) k/uL Lymphocytes # 2.5 (1.0-4.8) k/uL Monocytes # 0.6 (0-1.0) k/uL Eosinophils # 0.4 (0-0.7) k/uL Basophils # 0.1 (0-0.2) k/uL Sodium 139 (137-145) mmol/L Potassium 4.1 (3.5-5.1) mmol/L Chloride 103 (98-107) mmol/L Carbon Dioxide 27 (22-30) mmol/L Anion Gap 9 mmol/L BUN 11 (7-17) mg/dL Creatinine 0.70 (0.52-1.04) mg/dL Est GFR (MDRD) Af Amer >60 (>60 ml/min/1.73 sqM) Est GFR (MDRD) Non-Af >60 (>60 ml/min/1.73 sqM) Glucose 103 H (74-99) mg/dL Calcium 9.3 (8.4-10.2) mg/dL Total Bilirubin 0.2 (0.2-1.3) mg/dL AST 17 (14-36) U/L ALT 31 (9-52) U/L Alkaline Phosphatase 79 (38-126) U/L Total Protein 6.8 (6.3-8.2) g/dL Albumin 3.8 (3.5-5.0) g/dL Disposition Clinical Impression: Abdominal wall hematoma Disposition: HOME SELF-CARE Condition: Stable Instructions: Hematoma (ED) Additional Instructions: Please use medication as discussed. Please follow up with family doctor if symptoms have not improved over the next two days. Please return to the emergency room if your symptoms increase or worsen or for any other concerns. Referrals: Xavier Gomez DO [Primary Care Provider] - 1-2 days Time of Disposition: 01:57
[2017-05-31] MEDS ORDERED: KETOROLAC 30 MG/ML 1 ML VIAL IVP STA (00:55)
[2017-05-31 01:11] LABS: Basophils # (A) 0.1 k/uL (0-0.2); Basophils % (A) 1 %; CH 27.2; CHCM 33.5; Eosinophils # (A) 0.4 k/uL (0-0.7); Eosinophils % (A) 5 %; HCT 33.1 % (34.0-46.0); HDW 2.77; HGB 11.1 gm/dL (11.4-16.0); Luc # (Auto) 0.17; Luc % (Auto) 2; Lymphocytes # (A) 2.5 k/uL (1.0-4.8); Lymphocytes % (A) 30 %; MCH 27.4 pg (25.0-35.0); MCHC 33.6 g/dL (31.0-37.0); MCV 81.4 fL (80.0-100.0); Mean Platelet Volume 7.3; Monocytes # (A) 0.6 k/uL (0-1.0); Monocytes % (A) 7 %; Neutrophils # (A) 4.6 k/uL (1.3-7.7); Neutrophils % (A) 55 %; RBC 4.06 m/uL (3.80-5.40); RDW 14.8 % (11.5-15.5); WBC 8.3 k/uL (3.8-10.6); WBC (Perox) 8.53
[2017-05-31 01:20] LABS: ALT 31 U/L (9-52); AST 17 U/L (14-36); Alkaline Phosphatase 79 U/L (38-126); Anion Gap 9 mmol/L; Blood Urea Nitrogen 11 mg/dL (7-17); Calcium 9.3 mg/dL (8.4-10.2); Carbon Dioxide 27 mmol/L (22-30); Chloride 103 mmol/L (98-107); Glucose 103 mg/dL (74-99); Non-African American GFR(MDRD) >60 (>60 ml/min/1.73 sqM); Potassium 4.1 mmol/L (3.5-5.1); Sodium 139 mmol/L (137-145); Total Bilirubin 0.2 mg/dL (0.2-1.3); Total Protein 6.8 g/dL (6.3-8.2)
[2017-05-31 02:05] VITALS: BP 118/60; PULSE 68; RESP 16; TEMP 98.5
== END 2017-05-31 02:05 | disposition home or self-care (01) ==
LOC: EC 23:30
DX: M79.81 Nontraumatic hematoma of soft tissue (principal); E07.9 Disorder of thyroid, unspecified; Z87.891 Personal history of nicotine dependence; Z86.14 Personal history of Methicillin resistant Staphylococcus aureus infection; Z79.899 Other long term (current) drug therapy
CPT/HCPCS: 36415; 80053; 85025; 99284; 96374; J1885

== ENCOUNTER 2017-11-02 19:19 | Emergency (ER) | payer OTHER ==
[2017-11-02 19:27] VITALS: BP 133/77; PULSE 103; RESP 16; TEMP 99.1
--- NOTE | 2017-11-02 19:47 | ED ---
General Adult HPI - General Chief complaint: Recheck/Abnormal Lab/Rx Stated complaint: Post Op/Infection Time Seen by Provider: 11/02/17 19:38 Source: patient, RN notes reviewed Mode of arrival: ambulatory Limitations: no limitations - History of Present Illness Initial comments: Patient is a pleasant 32-year-old female presenting to the emergency department with concern for possible infection. Patient states approximately one week ago she had a mass removed from her right abdominal wall. Patient has a KIRBY drain in place. Patient is still getting approximately 20 mL of drainage daily. Patient states today there has been some erythema and tenderness. Patient states there has been some mild yellow discharge. No fever. No other abdominal pain. - Related Data Home Medications Medication Instructions Recorded Confirmed HYDROcodone/APAP 7.5-325MG [[place] 1 tab PO Q4H PRN 11/02/17 11/02/17 7.5] Norgestimate-Ethinyl Estradiol 1 tab PO DAILY 11/02/17 11/02/17 [Sprintec 28 Day Tablet] Previous Rx's Medication Instructions Recorded Docusate [Colace] 100 mg PO BID #20 capsule 10/29/17 Cephalexin [Keflex] 500 mg PO QID #40 cap 11/02/17 Allergies Allergy/AdvReac Type Severity Reaction Status Date / Time No Known Allergies Allergy Verified 11/02/17 19:49 Review of Systems ROS Statement: Those systems with pertinent positive or pertinent negative responses have been documented in the HPI. ROS Other: All systems not noted in ROS Statement are negative. Constitutional: Denies: fever Eyes: Denies: eye pain ENT: Denies: ear pain Respiratory: Denies: cough Cardiovascular: Denies: chest pain Endocrine: Denies: fatigue Gastrointestinal: Denies: abdominal pain Genitourinary: Denies: dysuria Musculoskeletal: Denies: back pain Skin: Reports: rash Neurological: Denies: weakness Past Medical History Past Medical History: Thyroid Disorder Additional Past Medical History / Comment(s): inguinal hernia x2 History of Any Multi-Drug Resistant Organisms: MRSA Date of last positivie culture/infection: 08/2011 MDRO Source:: right thigh Past Surgical History: Adenoidectomy, Section, Hernia Repair, Tonsillectomy Additional Past Surgical History / Comment(s): d and C Past Anesthesia/Blood Transfusion Reactions: No Reported Reaction Past Psychological History: Anxiety, Depression Smoking Status: Never smoker Past Alcohol Use History: None Reported Past Drug Use History: None Reported - Past Family History Son(s) Additional Family Medical History / Comment(s): autism Grandmother Family Medical History: Blood Disorder, Congestive Heart Failure (CHF), Diabetes Mellitus, Hyperlipidemia General Exam Limitations: no limitations General appearance: alert, in no apparent distress Head exam: Present: atraumatic Eye exam: Present: normal appearance, PERRL ENT exam: Present: normal oropharynx Neck exam: Present: normal inspection Respiratory exam: Present: normal lung sounds bilaterally Cardiovascular Exam: Present: regular rate, normal rhythm GI/Abdominal exam: Present: soft, tenderness (Localized tenderness right lower abdomen near the KIRBY drain. There is surrounding erythema approximately 2 cm diameter. No drainage.), normal bowel sounds. Absent: distended, guarding, rebound, rigid Extremities exam: Present: normal inspection Neurological exam: Present: alert Psychiatric exam: Present: normal affect, normal mood Skin exam: Present: erythema (Right lower abdomen) Course Vital Signs 11/02/17 19:23 Temperature 99.1 F Pulse Rate 103 H Respiratory 16 Rate Blood Pressure 133/77 O2 Sat by Pulse 98 Oximetry - Reevaluation(s) Reevaluation #1: 11/02/17 19:56 Case was discussed in detail with Dr. Holloway covering for Dr. Jackson. He does feel comfortable with Keflex and discharge. He states his symptoms worsen patient should return for further evaluation however further evaluation is not necessary at this time. Patient does have appointment to follow up with Dr. Jackson or Thursday of this week and will keep this. Patient is advised to call tomorrow and try to follow-up sooner. Disposition Clinical Impression: Cellulitis Disposition: HOME SELF-CARE Condition: Stable Instructions: Cellulitis (ED) Additional Instructions: Please follow-up this week with Dr. Murrell as planned. Call tomorrow and try to get earlier appointment. Please also follow-up with your primary care physician this week. Return for increased pain, redness, drainage, fevers, worsening symptoms or other concerns. Prescriptions: Cephalexin [Keflex] 500 mg PO QID #40 cap Referrals: Xavier Gomez DO [Primary Care Provider] - 1-2 days Saul Murrell MD [STAFF PHYSICIAN] - 1-2 days Time of Disposition: 19:58
[2017-11-02] MEDS ORDERED: CEPHALEXIN 500MG STARTER PACK 4 CAP BTL PO STA (19:54)
== END 2017-11-02 20:21 | disposition home or self-care (01) ==
LOC: EC 19:19
DX: L03.311 Cellulitis of abdominal wall (principal); Z86.14 Personal history of Methicillin resistant Staphylococcus aureus infection; Z98.890 Other specified postprocedural states
CPT/HCPCS: 99283

== ENCOUNTER → 2017-11-10 | Outpatient (CLI) | payer OTHER ==
--- NOTE | 2017-11-10 23:50 | MR ---
EXAMINATION TYPE: MR abdomen wo con DATE OF EXAM: 11/10/2017 COMPARISON: NONE HISTORY: Abdominal Discomfort HX of Endometreosis Standard multiplanar, multisequence MRI departmental protocol Multiplanar, multisequence images of the abdomen were acquired. FINDINGS: Liver spleen pancreas appear normal. Gallbladder appears normal. Bile ducts are not dilated . There is no sign of pleural effusion. There is no sign of an adrenal mass. Kidneys have normal size and contour. There is no hydronephrosis . There is no sign of retroperitoneal adenopathy. There is no evidence of ascites. I see no evidence of an intestinal mass. There is intermediate signal in the subcutaneous region of the right lower rhiannon drant anterior abdominal wall. This measures 5.5 x 2.5 cm. This appears to have fluid signal on the T 2 images. I see no focal bony destructive process. IMPRESSION: Right lower anterior abdominal wall lesion has fluid signal characteristics and is consistent with se omer or hematoma or abscess. The size is slightly increased compared to the CT scan of 10/26/2017. Th e lesion is more elongated. No significant abnormality demonstrated within the abdomen.
== END | disposition home or self-care (01) ==
LOC: RADMRIMAIN 16:24
PROVIDERS: ATTEND Family Medicine
DX: R19.00 Intra-abdominal and pelvic swelling, mass and lump, unspecified site (principal)
CPT/HCPCS: 74181

== ENCOUNTER 2017-11-20 09:54 | Day surgery (SDC) | payer OTHER ==
[2017-11-13 09:58] VITALS: BMI 34.4
[~2017-11-20 09:54] MED LIST: DEXAMETHASONE SOD PHOSPHATE 10 MG/ML 1 ML VIAL IV ONE; HEPARIN SODIUM,PORCINE 5,000 UNIT/ML 1 ML VIAL SQ ONE; LACTATED RINGERS 1,000 ML IV SCH; MIDAZOLAM 2 MG/2 ML VIAL IV PRN; SCOPOLAMINE 1.5MG/72HR PATCH TRANSDERM ONE; ceFAZolin IN SWFI 2 GM/20 ML SYRINGE IVP ONE
--- NOTE | 2017-11-20 11:36 | P.GSHP ---
History of Present Illness H&P Date: 11/20/17 Chief Complaint: Right upper quadrant pain This is a 32-year-old female sac was run quadrant pain. Her recent HIDA scans shows abnormal ejection fraction consistent with chronic cholecystitis. She presents today for laparoscopic cholecystectomy. Past Medical History Past Medical History: Thyroid Disorder Additional Past Medical History / Comment(s): inguinal hernia x2, endometriosis , current antibiotics given to treat surgical KIRBY drain site History of Any Multi-Drug Resistant Organisms: MRSA Date of last positivie culture/infection: 08/2011 MDRO Source:: right thigh Past Surgical History: Adenoidectomy, Section, Hernia Repair, Tonsillectomy Additional Past Surgical History / Comment(s): d and C, removal of endometrioma Past Anesthesia/Blood Transfusion Reactions: No Reported Reaction Smoking Status: Never smoker - Past Family History Son(s) Additional Family Medical History / Comment(s): autism Grandmother Family Medical History: Blood Disorder, Congestive Heart Failure (CHF), Diabetes Mellitus, Hyperlipidemia Medications and Allergies Home Medications Medication Instructions Recorded Confirmed Type HYDROcodone/APAP 7.5-325MG [[place] 1 tab PO Q4H PRN 11/02/17 11/13/17 History 7.5] Norgestimate-Ethinyl Estradiol 1 tab PO DAILY 11/02/17 11/13/17 History [Sprintec 28 Day Tablet] Allergies Allergy/AdvReac Type Severity Reaction Status Date / Time No Known Allergies Allergy Verified 11/13/17 09:43 Surgical - Exam Vital Signs Temp Pulse Resp BP Pulse Ox 97.8 F 78 18 122/78 99 11/20/17 11:31 11/20/17 11:31 11/20/17 11:31 11/20/17 11:31 11/20/17 11:31 - General well developed, no distress - Eyes PERRL - ENT normal pinna - Neck no masses - Respiratory normal expansion - Cardiovascular Rhythm: regular - Abdomen Abdomen: soft, non tender Assessment and Plan Assessment: Chronic cholecystitis Right quadrant pain We'll perform laparoscopic cholecystectomy
[2017-11-20] MEDS: ONDANSETRON 4 MG/2 ML VIAL IVP ONE ×2 (11:38→13:24)
[2017-11-20] MEDS ORDERED: BUPIVACAINE-EPI 0.5%-1:200,000 10 ML VIAL SQ ONE (11:50)
[2017-11-20] MEDS ORDERED: fentaNYL (PF) 50 MCG/ML 2 ML AMP ONE (11:53)
[2017-11-20] MEDS ORDERED: HYDROmorphone (PF) 1 MG/ML ONE (11:53)
[2017-11-20] MEDS ORDERED: LIDOCAINE 1% INJ 10MG/ML (20 ML MDV) ONE (11:53)
[2017-11-20] MEDS ORDERED: MIDAZOLAM 2 MG/2 ML VIAL ONE (11:53)
[2017-11-20] MEDS ORDERED: ROCURONIUM BROMIDE 10 MG/ML 10 ML VIAL IV ONE (11:53)
[2017-11-20] MEDS ORDERED: NEOSTIGMINE 1 MG/ML 10 ML VIAL ONE (11:53)
[2017-11-20] MEDS ORDERED: GLYCOPYRROLATE 0.2 MG/ML 2 ML VIAL ONE (11:53)
[2017-11-20] MEDS ORDERED: PROPOFOL 10 MG/ML 20 ML VIAL IV ONE (11:53)
[2017-11-20] MEDS ORDERED: SUCCINYLCHOLINE CHLORIDE 100 MG/5 ML SYR IV ONE (11:53)
--- NOTE | 2017-11-20 12:50 | P.OP ---
Date of Procedure: 11/20/17 Preoperative Diagnosis: Gastritis Postoperative Diagnosis: Mild antral gastritis Procedure(s) Performed: EGD Anesthesia: MAC Surgeon: Saul Murrell Pathology: other (Antral gastritis) Condition: stable Disposition: PACU Description of Procedure: Patient's placed on the endoscopy table lateral position. Received IV sedation. The gastroscope placed oropharynx passed in the esophagus and into the stomach. Scope was then placed through the pylorus. The first and second portion of the duodenum appeared normal. The scope was then brought back the antrum this. Mildly inflamed. A biopsies was performed. The scope was unretroflexed and remainder of the stomach appeared normal. There was no hiatal hernia seen. The GE junction was at 40 cm the distal esophagus appeared normal. The proximal esophagus was normal. Scope was withdrawn for patient.
--- NOTE | 2017-11-20 12:53 | P.OP ---
Date of Procedure: 11/20/17 Preoperative Diagnosis: Cholecystitis Postoperative Diagnosis: Cholecystitis Procedure(s) Performed: Laparoscopic Cholecystectomy Anesthesia: MAC Surgeon: Saul Murrell Pathology: other (gAll bladder) Condition: stable Disposition: PACU Description of Procedure: The patient was placed on the operating table. The patient received a general endotracheal tube anesthesia. The patients abdomen was prepped and draped in the usual sterile fashion. Through an infraumbilical stab incision, the fascia of the anterior abdominal wall was grasped with a pair of Kochers and then the Veress needle was placed in the peritoneal cavity. Position of the Veress needle was confirmed with positive drop test. The abdomen was then insufflated. After adequate insufflation, the 10 mm trocar was placed in the peritoneal cavity. Following this the laparoscope was placed in the peritoneal cavity. The patient was placed in the head-up, right side up position and then a 5 mm trocar was placed in the right lateral and right subcostal position under direct visualization. A 8 mm trocar was placed in the epigastric position. The gallbladder was grasped in the fundus and infundibulum. Traction on the gallbladder was placed in the lateral and the cephalad positions. The triangle of Calot was visualized.. The cystic duct was bluntly dissected until the union of the cystic duct and common bile duct was seen. The cystic duct was then divided and sealed with the Harmonic scissors. A PDS Endoloop was then placed throughout the cystic duct stump. The cystic artery divided and sealed with the Harmonic scissors. The gallbladder was then removed from the liver bed using Harmonic scissors. The gallbladder was then extracted through the epigastric port site. Operative field was checked for any bleeding spots and Harmonic scissors was used to coagulate the liver bed. The abdomen was irrigated. The trocars were removed. The skin was closed using interrupted 3-0 Vicryl suture. Dermabond dressing were applied. The patient tolerated the procedure well.
[2017-11-20 12:54] VITALS: TEMP 97.4
[2017-11-20] MEDS: MORPHINE SULFATE 4 MG/ML SYRINGE IV PRN ×5 (13:07→13:42)
[2017-11-20] MEDS ORDERED: HYDROcodone/APAP 7.5-325MG 1 EACH TAB PO ONE ×2 (14:59→16:15)
[2017-11-20 15:42] VITALS: BP 98/62; PULSE 62; RESP 16
== END 2017-11-20 16:58 | disposition home or self-care (01) ==
LOC: OR 09:54
PROVIDERS: ATTEND Surgery
DX: K81.1 Chronic cholecystitis (principal); E07.9 Disorder of thyroid, unspecified; J45.909 Unspecified asthma, uncomplicated; F41.9 Anxiety disorder, unspecified; F32.9 Major depressive disorder, single episode, unspecified; Z86.14 Personal history of Methicillin resistant Staphylococcus aureus infection; Z79.3 Long term (current) use of hormonal contraceptives; Z79.899 Other long term (current) drug therapy
CPT/HCPCS: 81025; 88304; 47562; J2250; J2270; J1644; J1100; J2710; J0690; J2405; J2001; J3010; J1170; J0330; J2704

== ENCOUNTER 2018-06-17 13:52 | Emergency (ER) | payer OTHER ==
[2018-06-17] MEDS ORDERED: IBUPROFEN 600 MG TAB PO STA (14:55)
[2018-06-17] MEDS ORDERED: predniSONE 50 MG TAB PO STA (14:55)
[2018-06-17 15:00] VITALS: BP 120/68; PULSE 82; RESP 18; TEMP 97.8
--- NOTE | 2018-06-17 15:24 | ED ---
General Adult HPI - General Stated complaint: back pain Time Seen by Provider: 06/17/18 14:30 Source: patient, RN notes reviewed Mode of arrival: ambulatory Limitations: no limitations - History of Present Illness Initial comments: 32-year-old female presents to the emergency department for a chief complaint of right-sided back pain radiating down the right leg. Patient states this is a shooting pain. Patient states she has had chronic back pain for years. She states over the last few days the pain has been worsening down the right leg. Patient states she sees her primary care provider for this. She has attempted to see many orthopedic doctors but they do not take her insurance. Patient denies any bladder or bowel changes. She states she is urinating regularly. Patient denies any saddle anesthesia. Patient denies any history of IV drug abuse. No history of cancer or chronic steroid use. Patient denies any recent injuries to the back. Patient denies any weakness in the legs. Patient has no other complaints at this time including shortness of breath, chest pain, abdominal pain, nausea or vomiting, headache, or visual changes. - Related Data Home Medications Medication Instructions Recorded Confirmed Norgestimate-Ethinyl Estradiol 1 tab PO DAILY 11/02/17 06/17/18 [Sprintec 28 Day Tablet] Levothyroxine Sodium [Synthroid] 50 mcg PO DAILY 06/17/18 06/17/18 Phentermine HCl 37.5 mg PO DAILY 06/17/18 06/17/18 Previous Rx's Medication Instructions Recorded Ibuprofen [Motrin] 600 mg PO Q8HR PRN #20 tab 06/17/18 predniSONE 50 mg PO DAILY #5 tablet 06/17/18 Allergies Allergy/AdvReac Type Severity Reaction Status Date / Time No Known Allergies Allergy Verified 06/17/18 15:00 Review of Systems ROS Statement: Those systems with pertinent positive or pertinent negative responses have been documented in the HPI. ROS Other: All systems not noted in ROS Statement are negative. Past Medical History Past Medical History: Thyroid Disorder Additional Past Medical History / Comment(s): inguinal hernia x2, endometriosis , current antibiotics given to treat surgical KIRBY drain site History of Any Multi-Drug Resistant Organisms: MRSA Date of last positivie culture/infection: 08/2011 MDRO Source:: right thigh Past Surgical History: Adenoidectomy, Section, Hernia Repair, Tonsillectomy Additional Past Surgical History / Comment(s): d and C, removal of endometrioma Past Anesthesia/Blood Transfusion Reactions: No Reported Reaction Past Psychological History: Anxiety, Depression Smoking Status: Never smoker - Past Family History Son(s) Additional Family Medical History / Comment(s): autism Grandmother Family Medical History: Blood Disorder, Congestive Heart Failure (CHF), Diabetes Mellitus, Hyperlipidemia General Exam Limitations: no limitations General appearance: alert, in no apparent distress Head exam: Present: atraumatic, normocephalic, normal inspection Eye exam: Present: normal appearance. Absent: scleral icterus, conjunctival injection ENT exam: Present: normal exam, mucous membranes moist Neck exam: Present: normal inspection, full ROM. Absent: tenderness, meningismus, lymphadenopathy Respiratory exam: Present: normal lung sounds bilaterally. Absent: respiratory distress, wheezes, rales, rhonchi, stridor Cardiovascular Exam: Present: regular rate, normal rhythm, normal heart sounds. Absent: systolic murmur, diastolic murmur, rubs, gallop, clicks Extremities exam: Present: full ROM (Full range of motion of lower extremities bilaterally including hips, knees, and toes.), normal capillary refill ( Capillary refill 2+ in lower extremities bilaterally. Pedal pulse 2+ in lower extremities), other (strength 5/5 in BLE). Absent: pedal edema, calf tenderness Back exam: Present: full ROM (Patient has full flexion and extension of the lumbar spine. Patient able to rotate bilaterally), other (Patient does have tenderness of the right gluteus. ). Absent: vertebral tenderness (No tenderness in the cervical thoracic or lumbar spines.) Neurological exam: Present: alert, oriented X3, CN II-XII intact, reflexes normal (Reflexes 2+ patellar bilaterally.), other (Sensation intact in lower extremities bilaterally). Absent: motor sensory deficit Psychiatric exam: Present: normal affect, normal mood Course Vital Signs 06/17/18 14:25 Temperature 97.8 F Pulse Rate 82 Respiratory 18 Rate Blood Pressure 120/68 O2 Sat by Pulse 99 Oximetry Medical Decision Making - Medical Decision Making 32-year-old female presents to the emergency department for a chief complaint of sharp shooting pain on the right leg 3 days. Patient has chronic back pain that has worsened over the past few days. Patient sees primary care provider for this. Patient does not take any medications for this and is reluctant to take Motrin or steroids. Patient states she does not want any shots in the emergency department. On exam patient has full range motion of the back without tenderness. Patient does have tenderness in the right gluteus. No recent trauma to the back. Sensation and neurovascular intact in lower extremities bilaterally. Patellar reflexes 2+. Patient denies any bladder or bowel changes, saddle anesthesia, IV drug abuse, history of steroid use, or history of cancer. Patient denies any numbness in the feet. She denies any weakness but states when she walks on the right leg it causes the shooting pain. Patient states she has an appointment with her primary care provider early next week to discuss further management and to attempt to find an orthopedic doctor that will see her. I did give her a referral to Dr. Leal. I discussed return precautions with patient and she will return if she has any worsening symptoms. She will take Motrin and steroids. She will follow up with primary care. Disposition Clinical Impression: Sciatica of right side Disposition: HOME SELF-CARE Condition: Good Instructions: Sciatica (ED), Lower Back Exercises (ED) Additional Instructions: Please take steroid and Motrin as directed. Take these with food. Please attend your appointment next week with her primary care provider and discuss this issue. Return to the emergency department immediately if you have any worsening symptoms, numbness in the groin or buttock, or difficulty urinating. Prescriptions: Ibuprofen [Motrin] 600 mg PO Q8HR PRN #20 tab PRN Reason: Pain predniSONE 50 mg PO DAILY #5 tablet Is patient prescribed a controlled substance at d/c from ED?: No Referrals: Xavier Gomez DO [Primary Care Provider] - 1-2 days Emilie Painter DO [Doctor of Osteopathic Medicine] - 1-2 days Time of Disposition: 15:23
== END 2018-06-17 15:37 | disposition home or self-care (01) ==
LOC: EC 13:52
DX: M54.31 Sciatica, right side (principal); E07.9 Disorder of thyroid, unspecified; Z86.14 Personal history of Methicillin resistant Staphylococcus aureus infection; Z79.3 Long term (current) use of hormonal contraceptives; Z79.899 Other long term (current) drug therapy; Z53.29 Procedure and treatment not carried out because of patient's decision for other reasons
CPT/HCPCS: 99283; J7512

== ENCOUNTER → 2018-07-20 | Outpatient (CLI) | payer OTHER ==
--- NOTE | 2018-07-20 10:09 | MR ---
EXAMINATION TYPE: MR cspine/tspine/lspine wo con DATE OF EXAM: 07/20/2018 COMPARISON: Plain film cervical spine 06/30/2009 HISTORY: Back and neck pain TECHNIQUE: Multiplanar, multisequence imaging of the cervical, thoracic, lumbar spine is performed wi thout IV contrast. FINDINGS: Sagittal images of the cervical, thoracic, lumbar lumbar spine show vertebral body heights and alignment to appear satisfactory. The intervertebral discs predominantly demonstrate normal heigh ts and hydration. The spinal cord is normal in position and signal. The bone marrow signal intensit y is within normal limits. There is a dextroscoliosis centered at the lower thoracic spine. Axial images show small disc bulge at C5-6 lateral extension of endplate disc complex causing minimal foraminal encroachment. T7-8 shows a left posterior paracentral disc herniation with minimal mass ef fect on the thoracic cord, there is some associated loss of disc signal compatible disc desiccation. Loss of disc height and signal present at L5-S1. There is posterior disc herniation somewhat broad-ba sed, lateral extension of endplate disc complex encroaches on the left neural foramen greater than th e right. No significant central stenosis. Some facet arthropathy changes present at L5-S1, L4-5. IMPRESSION: Dextroscoliosis thoracic spine. Degenerative disc disease as described with disc herniati on L5-S1 with associated foraminal encroachment. Mild facet arthropathy.
== END | disposition home or self-care (01) ==
LOC: RADMRIMAIN 08:25
PROVIDERS: ATTEND Family Medicine
DX: M51.27 Other intervertebral disc displacement, lumbosacral region (principal); M51.36 Other intervertebral disc degeneration, lumbar region; M46.96 Unspecified inflammatory spondylopathy, lumbar region; M41.84 Other forms of scoliosis, thoracic region
CPT/HCPCS: 72141; 72146; 72148

== ENCOUNTER → 2018-09-15 | Outpatient (CLI) | payer OTHER ==
[2018-09-15 17:36] LABS: Appearance,Urine Clear (Clear); Basophils # (A) 0.1 k/uL (0-0.2); Basophils % (A) 1 %; Bilirubin,Urine Negative (Negative); Blood,Urine Negative (Negative); Color,Urine Yellow; Eosinophils # (A) 0.2 k/uL (0-0.7); Eosinophils % (A) 1 %; Glucose,Urine (UA) 2+ (Negative); HGB 10.8 gm/dL (11.4-16.0); Hypochromasia Slight; Ketones,Urine Negative (Negative); Leukocyte Esterase,Urine Negative (Negative); Lymphocytes # (A) 2.5 k/uL (1.0-4.8); Lymphocytes % (A) 23 %; MCH 23.3 pg (25.0-35.0); MCHC 30.8 g/dL (31.0-37.0); MCV 75.6 fL (80.0-100.0); Mean Platelet Volume 6.7; Microcytosis Slight; Monocytes # (A) 0.7 k/uL (0-1.0); Monocytes % (A) 6 %; Neutrophils # (A) 7.4 k/uL (1.3-7.7); Neutrophils % (A) 67 %; Nitrite,Urine Negative (Negative); Platelet Count 405 k/uL (150-450); Protein,Urine Trace (Negative); RBC 4.62 m/uL (3.80-5.40); RDW 14.9 % (11.5-15.5); Specific Gravity,Urine 1.026 (1.001-1.035)
[2018-09-15 18:44] LABS: Erythrocyte Sedimentation Rate 13 mm/hr (0-20)
[2018-09-16 03:31] LABS: Cyclic Citrullinated Pep IgG NEGATIVE (NEGATIVE)
[2018-09-16 03:32] LABS: Protein, Total 7.1 g/dL (6.2-8.2); Rheumatoid Factor 7 IU/mL (0-15); Streptolysin O Ab(ASO) 56 IU/mL (0-200)
[2018-09-16 03:41] LABS: Albumin 4.7 g/dL (3.80-4.90); Albumin/Globulin Ratio 1.81 (1.20-2.10); Anion Gap 8.7 mmol/L (4.00-12.00); Calcium 9.4 mg/dL (8.7-10.3); Carbon Dioxide 27.3 mmol/L (21.6-31.8); Globulin 2.6 g/dL (2.1-3.7); Phosphorus 3.9 mg/dL (2.4-5.1); Total Bilirubin 0.3 mg/dL (0.3-1.2); Total Protein 7.3 g/dL (6.2-8.2); Vitamin D 25 Hydroxy 21.9 ng/mL (30.0-100.0)
[2018-09-16 03:48] LABS: T4, Free (Free Thyroxine) 0.9 ng/dL (0.80-1.80)
[2018-09-16 04:04] LABS: Parathyroid Hormone Intact 55.4 pg/mL (14.0-72.0)
[2018-09-16 05:13] LABS: Hemoglobin A1C 5.6 % (4.0-6.0)
[2018-09-16 16:56] LABS: Albumin 3.91 g/dL (3.80-4.90)
[2018-09-17 04:22] LABS: Angiotensin-1 Converting Enz. 57 U/L (8-52)
[2018-09-17 09:03] LABS: Lyme IgG/IgM 0.1 Index
[2018-09-17 09:18] LABS: HLA B27 NEGATIVE
[2018-09-17 15:50] LABS: Hepatits C Virus RNA Not detected (Not detected); Hepatits C Virus RNA, Quant <12 IU/mL (<12); LOG HCV IU/mL <1.08 (<1.08)
[2018-09-17 16:15] LABS: Vitamin D, 1, 25-Dihydroxy 58 pg/mL (20 - 79)
[2018-09-20 07:22] LABS: Vitamin B1 66 ug/L (38-122)
== END | disposition home or self-care (01) ==
LOC: LABWHC1 16:17
PROVIDERS: ATTEND Physical Medicine & Rehabilitation
DX: M51.16 Intervertebral disc disorders with radiculopathy, lumbar region (principal); M51.34 Other intervertebral disc degeneration, thoracic region; M54.5 Low back pain; M54.2 Cervicalgia
CPT/HCPCS: 36415; 80053; 81003; 82164; 82306; 82310; 82550; 82553; 82607; 82652; 83036; 83516; 83520; 83970; 84100; 84165; 84207; 84425; 84439; 84443; 84550; 85025; 85652; 86038; 86060; 86140; 86200; 86235; 86431; 86618; 86812; 87522

== ENCOUNTER → 2018-09-16 | Outpatient (CLI) | payer OTHER | END | disposition home or self-care (01) | LOC: LABWHC1 15:51 | PROVIDERS: ATTEND Physical Medicine & Rehabilitation | DX: M51.16 Intervertebral disc disorders with radiculopathy, lumbar region (principal); M51.36 Other intervertebral disc degeneration, lumbar region; M51.26 Other intervertebral disc displacement, lumbar region; M51.34 Other intervertebral disc degeneration, thoracic region; M54.2 Cervicalgia; Z79.899 Other long term (current) drug therapy | CPT/HCPCS: 84207 ==

== ENCOUNTER 2018-09-20 16:00 | Emergency (ER) | payer OTHER ==
[2018-09-20 16:19] VITALS: RESP 18
[2018-09-20] MEDS ORDERED: SODIUM CHLORIDE 0.9% 1,000 ML IV STA (17:12)
[2018-09-20 17:33] LABS: Basophils # (A) 0.1 k/uL (0-0.2); Basophils % (A) 1 %; Eosinophils # (A) 0.2 k/uL (0-0.7); Eosinophils % (A) 2 %; HCT 32.7 % (34.0-46.0); HGB 10.3 gm/dL (11.4-16.0); Hypochromasia Slight; Lymphocytes # (A) 2.4 k/uL (1.0-4.8); Lymphocytes % (A) 24 %; MCH 23.3 pg (25.0-35.0); MCHC 31.4 g/dL (31.0-37.0); MCV 74.3 fL (80.0-100.0); Mean Platelet Volume 6.3; Microcytosis Slight; Monocytes # (A) 0.7 k/uL (0-1.0); Monocytes % (A) 7 %; Neutrophils # (A) 6.4 k/uL (1.3-7.7); Neutrophils % (A) 64 %; Platelet Count 384 k/uL (150-450); RDW 15.6 % (11.5-15.5); WBC 10.1 k/uL (3.8-10.6)
[2018-09-20 17:44] LABS: ALT 20 U/L (9-52); AST 18 U/L (14-36); Albumin 4.1 g/dL (3.5-5.0); Alkaline Phosphatase 74 U/L (38-126); Anion Gap 9 mmol/L; Blood Urea Nitrogen 12 mg/dL (7-17); Calcium 9.5 mg/dL (8.4-10.2); Carbon Dioxide 25 mmol/L (22-30); Chloride 105 mmol/L (98-107); D-Dimer 0.58 mg/L FEU (<0.60); Glucose 106 mg/dL (74-99); Magnesium 1.8 mg/dL (1.6-2.3); Partial Thromboplastin Time 23.8 sec (22.0-30.0); Phosphorus 3.9 mg/dL (2.5-4.5); Potassium 4.4 mmol/L (3.5-5.1); Prothrombin Time 9.5 sec (9.0-12.0); Sodium 139 mmol/L (137-145); Total Bilirubin 0.2 mg/dL (0.2-1.3); Total Protein 7.6 g/dL (6.3-8.2)
[2018-09-20 17:49] LABS: Creatine Kinase 59 U/L (30-135)
[2018-09-20 17:57] LABS: Appearance,Urine Cloudy (Clear); Bacteria,Urine Moderate /hpf; Bilirubin,Urine Negative (Negative); Blood,Urine Negative (Negative); Color,Urine Yellow; Glucose,Urine (UA) 1+ (Negative); Hyaline Casts,Urine 1 /lpf (0-2); Ketones,Urine Negative (Negative); Leukocyte Esterase,Urine Negative (Negative); Mucus,Urine Many /hpf; Nitrite,Urine Negative (Negative); Protein,Urine Trace (Negative); RBC,Urine 1 /hpf (0-5); Specific Gravity,Urine 1.023 (1.001-1.035); Squamous Epithelial Cell,Urine 7 /hpf (0-4); Urobilinogen,Urine <2.0 mg/dL (<2.0); WBC,Urine 2 /hpf (0-5)
[2018-09-20 18:03] LABS: Creatine Kinase MB <0.2 ng/mL (0.0-2.4); Troponin I <0.012 ng/mL (0.000-0.034)
--- NOTE | 2018-09-20 18:25 | ED ---
Recheck HPI - General Chief Complaint: Recheck/Abnormal Lab/Rx Stated Complaint: chest tightness, LUIS MIGUEL, blurred vision, Time Seen by Provider: 09/20/18 16:49 Source: patient, RN notes reviewed, old records reviewed Mode of arrival: ambulatory Limitations: no limitations - History of Present Illness Initial Comments: This is a 32-year-old female the ER for evaluation patient resents today for evaluation regarding chronic pain chronic back pain migraines and multiple other complaints. Patient states related to significant outpatient laboratory evaluation regarding diagnosis and cause of symptoms. Patient states that she has no recent change in symptoms and symptoms of been persistent for multiple years. She is here mainly to get records checked from prior blood draw that she is hoping answered behind the labs that she had prior as well as MRI. Patient denies any recent trauma or injury. She denies refuses any pain medication MD Complaint: abnormal lab (Patient looking for chest, complaining of back pain) -: year(s) Returns Today for: other Symptoms Since Prior Visit: no new symptoms (Chronic back pain) Associated Symptoms: malaise Treatments Prior to Arrival: other (Fatigued) - Related Data Home Medications Medication Instructions Recorded Confirmed Norgestimate-Ethinyl Estradiol 1 tab PO DAILY 11/02/17 06/17/18 [Sprintec 28 Day Tablet] Levothyroxine Sodium [Synthroid] 50 mcg PO DAILY 06/17/18 06/17/18 Phentermine HCl 37.5 mg PO DAILY 06/17/18 06/17/18 Previous Rx's Medication Instructions Recorded Ibuprofen [Motrin] 600 mg PO Q8HR PRN #20 tab 06/17/18 predniSONE 50 mg PO DAILY #5 tablet 06/17/18 Allergies Allergy/AdvReac Type Severity Reaction Status Date / Time No Known Allergies Allergy Verified 09/20/18 16:19 Review of Systems ROS Statement: Those systems with pertinent positive or pertinent negative responses have been documented in the HPI. ROS Other: All systems not noted in ROS Statement are negative. Past Medical History Past Medical History: Thyroid Disorder Additional Past Medical History / Comment(s): inguinal hernia x2, endometriosis , current antibiotics given to treat surgical KIRBY drain site, DDD, dextrosciolosis, bulding discs in back and neck. History of Any Multi-Drug Resistant Organisms: MRSA Date of last positivie culture/infection: 08/2011 MDRO Source:: right thigh Past Surgical History: Adenoidectomy, Section, Hernia Repair, Tonsillectomy Additional Past Surgical History / Comment(s): d and C, removal of endometrioma Past Anesthesia/Blood Transfusion Reactions: No Reported Reaction Past Psychological History: Anxiety, Depression Smoking Status: Never smoker Past Alcohol Use History: None Reported Past Drug Use History: None Reported - Past Family History Son(s) Additional Family Medical History / Comment(s): autism Grandmother Family Medical History: Blood Disorder, Congestive Heart Failure (CHF), Diabetes Mellitus, Hyperlipidemia General Exam Limitations: no limitations General appearance: alert, in no apparent distress, obese Head exam: Present: atraumatic, normocephalic, normal inspection Eye exam: Present: normal appearance, PERRL, EOMI. Absent: scleral icterus, conjunctival injection, periorbital swelling ENT exam: Present: normal exam, mucous membranes moist Neck exam: Present: normal inspection. Absent: tenderness, meningismus, lymphadenopathy Respiratory exam: Present: normal lung sounds bilaterally. Absent: respiratory distress, wheezes, rales, rhonchi, stridor Cardiovascular Exam: Present: regular rate, normal rhythm, normal heart sounds. Absent: systolic murmur, diastolic murmur, rubs, gallop, clicks GI/Abdominal exam: Present: soft, normal bowel sounds. Absent: distended, tenderness, guarding, rebound, rigid Extremities exam: Present: normal inspection, full ROM, normal capillary refill. Absent: tenderness, pedal edema, joint swelling, calf tenderness Back exam: Present: normal inspection Neurological exam: Present: alert, oriented X3, CN II-XII intact Psychiatric exam: Present: normal affect, normal mood Skin exam: Present: warm, dry, intact, normal color. Absent: rash Course Vital Signs 09/20/18 09/20/18 16:14 20:18 Temperature 98.1 F 98.3 F Pulse Rate 92 86 Respiratory 18 18 Rate Blood Pressure 115/76 144/86 O2 Sat by Pulse 99 100 Oximetry - Reevaluation(s) Reevaluation #1: Records and lab values are obtained, patient sent down spoke with prior lab value results and compared to today's. Questions are answered Medical Decision Making - Medical Decision Making 32 female DEL with acute on chronic pain. Patient continue follow-up as an outpatient for evaluation of underlying cause - Lab Data Result diagrams: 09/20/18 17:13 09/20/18 17:13 Lab Results 09/20/18 09/20/18 09/20/18 Range/Units 17:13 17:13 17:13 WBC 10.1 (3.8-10.6) k/uL RBC 4.40 (3.80-5.40) m/uL Hgb 10.3 L (11.4-16.0) gm/dL Hct 32.7 L (34.0-46.0) % MCV 74.3 L (80.0-100.0) fL MCH 23.3 L (25.0-35.0) pg MCHC 31.4 (31.0-37.0) g/dL RDW 15.6 H (11.5-15.5) % Plt Count 384 (150-450) k/uL Neutrophils % 64 % Lymphocytes % 24 % Monocytes % 7 % Eosinophils % 2 % Basophils % 1 % Neutrophils # 6.4 (1.3-7.7) k/uL Lymphocytes # 2.4 (1.0-4.8) k/uL Monocytes # 0.7 (0-1.0) k/uL Eosinophils # 0.2 (0-0.7) k/uL Basophils # 0.1 (0-0.2) k/uL Hypochromasia Slight Microcytosis Slight PT (9.0-12.0) sec INR (<1.2) APTT (22.0-30.0) sec D-Dimer (<0.60) mg/L FEU Sodium 139 (137-145) mmol/L Potassium 4.4 (3.5-5.1) mmol/L Chloride 105 (98-107) mmol/L Carbon Dioxide 25 (22-30) mmol/L Anion Gap 9 mmol/L BUN 12 (7-17) mg/dL Creatinine 0.64 (0.52-1.04) mg/dL Est GFR (CKD-EPI)AfAm >90 (>60 ml/min/1.73 sqM) Est GFR (CKD-EPI)NonAf >90 (>60 ml/min/1.73 sqM) Glucose 106 H (74-99) mg/dL Plasma Lactic Acid Luis Alfredo (0.7-2.0) mmol/L Calcium 9.5 (8.4-10.2) mg/dL Phosphorus 3.9 (2.5-4.5) mg/dL Magnesium 1.8 (1.6-2.3) mg/dL Total Bilirubin 0.2 (0.2-1.3) mg/dL AST 18 (14-36) U/L ALT 20 (9-52) U/L Alkaline Phosphatase 74 (38-126) U/L Total Creatine Kinase 59 (30-135) U/L CK-MB (CK-2) <0.2 (0.0-2.4) ng/mL CK-MB (CK-2) Rel Index Troponin I <0.012 (0.000-0.034) ng/mL NT-Pro-B Natriuret Pep pg/mL Total Protein 7.6 (6.3-8.2) g/dL Albumin 4.1 (3.5-5.0) g/dL TSH 6.220 H (0.465-4.680) mIU/L Urine Color Urine Appearance (Clear) Urine pH (5.0-8.0) Ur Specific [place] (1.001-1.035) Urine Protein (Negative) Urine Glucose (UA) (Negative) Urine Ketones (Negative) Urine Blood (Negative) Urine Nitrite (Negative) Urine Bilirubin (Negative) Urine Urobilinogen (<2.0) mg/dL Ur Leukocyte Esterase (Negative) Urine RBC (0-5) /hpf Urine WBC (0-5) /hpf Ur Squamous Epith Cells (0-4) /hpf Urine Bacteria (None) /hpf Hyaline Casts (0-2) /lpf Urine Mucus (None) /hpf Urine HCG, Qual (Not Detectd) 09/20/18 09/20/18 09/20/18 Range/Units 17:13 17:13 17:35 WBC (3.8-10.6) k/uL RBC (3.80-5.40) m/uL Hgb (11.4-16.0) gm/dL Hct (34.0-46.0) % MCV (80.0-100.0) fL MCH (25.0-35.0) pg MCHC (31.0-37.0) g/dL RDW (11.5-15.5) % Plt Count (150-450) k/uL Neutrophils % % Lymphocytes % % Monocytes % % Eosinophils % % Basophils % % Neutrophils # (1.3-7.7) k/uL Lymphocytes # (1.0-4.8) k/uL Monocytes # (0-1.0) k/uL Eosinophils # (0-0.7) k/uL Basophils # (0-0.2) k/uL Hypochromasia Microcytosis PT 9.5 (9.0-12.0) sec INR 1.0 (<1.2) APTT 23.8 (22.0-30.0) sec D-Dimer 0.58 (<0.60) mg/L FEU Sodium (137-145) mmol/L Potassium (3.5-5.1) mmol/L Chloride (98-107) mmol/L Carbon Dioxide (22-30) mmol/L Anion Gap mmol/L BUN (7-17) mg/dL Creatinine (0.52-1.04) mg/dL Est GFR (CKD-EPI)AfAm (>60 ml/min/1.73 sqM) Est GFR (CKD-EPI)NonAf (>60 ml/min/1.73 sqM) Glucose (74-99) mg/dL Plasma Lactic Acid Luis Alfredo 0.9 (0.7-2.0) mmol/L Calcium (8.4-10.2) mg/dL Phosphorus (2.5-4.5) mg/dL Magnesium (1.6-2.3) mg/dL Total Bilirubin (0.2-1.3) mg/dL AST (14-36) U/L ALT (9-52) U/L Alkaline Phosphatase (38-126) U/L Total Creatine Kinase (30-135) U/L CK-MB (CK-2) (0.0-2.4) ng/mL CK-MB (CK-2) Rel Index Troponin I (0.000-0.034) ng/mL NT-Pro-B Natriuret Pep 31 pg/mL Total Protein (6.3-8.2) g/dL Albumin (3.5-5.0) g/dL TSH (0.465-4.680) mIU/L Urine Color Urine Appearance (Clear) Urine pH (5.0-8.0) Ur Specific [place] (1.001-1.035) Urine Protein (Negative) Urine Glucose (UA) (Negative) Urine Ketones (Negative) Urine Blood (Negative) Urine Nitrite (Negative) Urine Bilirubin (Negative) Urine Urobilinogen (<2.0) mg/dL Ur Leukocyte Esterase (Negative) Urine RBC (0-5) /hpf Urine WBC (0-5) /hpf Ur Squamous Epith Cells (0-4) /hpf Urine Bacteria (None) /hpf Hyaline Casts (0-2) /lpf Urine Mucus (None) /hpf Urine HCG, Qual (Not Detectd) 09/20/18 09/20/18 Range/Units 17:35 17:35 WBC (3.8-10.6) k/uL RBC (3.80-5.40) m/uL Hgb (11.4-16.0) gm/dL Hct (34.0-46.0) % MCV (80.0-100.0) fL MCH (25.0-35.0) pg MCHC (31.0-37.0) g/dL RDW (11.5-15.5) % Plt Count (150-450) k/uL Neutrophils % % Lymphocytes % % Monocytes % % Eosinophils % % Basophils % % Neutrophils # (1.3-7.7) k/uL Lymphocytes # (1.0-4.8) k/uL Monocytes # (0-1.0) k/uL Eosinophils # (0-0.7) k/uL Basophils # (0-0.2) k/uL Hypochromasia Microcytosis PT (9.0-12.0) sec INR (<1.2) APTT (22.0-30.0) sec D-Dimer (<0.60) mg/L FEU Sodium (137-145) mmol/L Potassium (3.5-5.1) mmol/L Chloride (98-107) mmol/L Carbon Dioxide (22-30) mmol/L Anion Gap mmol/L BUN (7-17) mg/dL Creatinine (0.52-1.04) mg/dL Est GFR (CKD-EPI)AfAm (>60 ml/min/1.73 sqM) Est GFR (CKD-EPI)NonAf (>60 ml/min/1.73 sqM) Glucose (74-99) mg/dL Plasma Lactic Acid Luis Alfredo (0.7-2.0) mmol/L Calcium (8.4-10.2) mg/dL Phosphorus (2.5-4.5) mg/dL Magnesium (1.6-2.3) mg/dL Total Bilirubin (0.2-1.3) mg/dL AST (14-36) U/L ALT (9-52) U/L Alkaline Phosphatase (38-126) U/L Total Creatine Kinase (30-135) U/L CK-MB (CK-2) (0.0-2.4) ng/mL CK-MB (CK-2) Rel Index Troponin I (0.000-0.034) ng/mL NT-Pro-B Natriuret Pep pg/mL Total Protein (6.3-8.2) g/dL Albumin (3.5-5.0) g/dL TSH (0.465-4.680) mIU/L Urine Color Yellow Urine Appearance Cloudy H (Clear) Urine pH 6.0 (5.0-8.0) Ur Specific [place] 1.023 (1.001-1.035) Urine Protein Trace H (Negative) Urine Glucose (UA) 1+ H (Negative) Urine Ketones Negative (Negative) Urine Blood Negative (Negative) Urine Nitrite Negative (Negative) Urine Bilirubin Negative (Negative) Urine Urobilinogen <2.0 (<2.0) mg/dL Ur Leukocyte Esterase Negative (Negative) Urine RBC 1 (0-5) /hpf Urine WBC 2 (0-5) /hpf Ur Squamous Epith Cells 7 H (0-4) /hpf Urine Bacteria Moderate H (None) /hpf Hyaline Casts 1 (0-2) /lpf Urine Mucus Many H (None) /hpf Urine HCG, Qual Not Detected (Not Detectd) - EKG Data -: EKG Interpreted by Me (EKG shows sinus rhythm rate of 86, NE 1:30, QRS 70, QTc 4:30) Disposition Clinical Impression: Back pain Disposition: HOME SELF-CARE Condition: Good Instructions: Chronic Back Pain (ED) Is patient prescribed a controlled substance at d/c from ED?: No Referrals: Xavier Gomez DO [Primary Care Provider] - 1-2 days
[2018-09-20 20:22] VITALS: BP 144/86; PULSE 86; TEMP 98.3
--- NOTE | 2018-09-22 00:42 | CDI ---
Documentation Clarification OP Dear Garry Gibson Please do addendum to ED report for missing HPI and Physical examination. Thank you, Latisha Lee Accredited Farm Manager If you have any questions, please contact Shipping Clerk/Admin at [phone] [facility]
== END 2018-09-20 20:18 | disposition home or self-care (01) ==
LOC: EC 16:00
DX: M54.9 Dorsalgia, unspecified (principal); R07.89 Other chest pain; R53.83 Other fatigue; E07.9 Disorder of thyroid, unspecified; Z86.14 Personal history of Methicillin resistant Staphylococcus aureus infection; Z79.3 Long term (current) use of hormonal contraceptives; Z79.899 Other long term (current) drug therapy
CPT/HCPCS: 36415; 80053; 81001; 81025; 82550; 82553; 83605; 83735; 83880; 84100; 84443; 84484; 85025; 85379; 85610; 85730; 87086; 93005; 96360; 99285

== ENCOUNTER → 2018-10-20 | Outpatient (CLI) | payer OTHER ==
--- NOTE | 2018-10-20 09:54 | MR ---
EXAMINATION TYPE: MR brain wo con DATE OF EXAM: 10/20/2018 COMPARISON: NONE HISTORY: Optic neuritis, MS TECHNIQUE: Multiplanar, multisequence imaging of the brain and brainstem is performed without IV cont rast. IV contrast not given as patient refused. Demyelinating disease protocol. FINDINGS: Diffusion weighted images demonstrate no evidence of a recent infarct or other diffusion abnormality. There is no extraaxial fluid collection or significant white matter signal abnormality. The ventricu lar system and cisternal spaces are normal in size and appearance. The brain volume is age appropria te. Midline structures demonstrate normal morphology. The craniocervical junction appears within normal limits. Normal vascular flow voids are present. The visualized sinuses are clear. The globes are inta ct bilaterally. Intraconal fat is preserved. Rectus muscles are felt within normal limits. Suprasella r cistern is maintained. Optic chiasm does not appear effaced. IMPRESSION: Unremarkable noncontrast MRI study.
== END ==
LOC: RADMRIMAIN 08:43
PROVIDERS: ATTEND Ophthalmology
DX: H46.01 Optic papillitis, right eye (principal)
CPT/HCPCS: 70551

== ENCOUNTER → 2019-08-11 | Outpatient (CLI) | payer OTHER ==
[2019-08-11 20:05] LABS: T4, Free (Free Thyroxine) 0.7 ng/dL (0.80-1.80)
== END | disposition home or self-care (01) ==
LOC: LABWHC1 10:17
PROVIDERS: ATTEND Internal Medicine Endocrinology, Diabetes & Metabolism
DX: E03.9 Hypothyroidism, unspecified (principal)
CPT/HCPCS: 36415; 84439; 84443; 84481; 86376

== ENCOUNTER → 2019-08-25 | Outpatient (CLI) | payer OTHER ==
--- NOTE | 2019-08-25 09:35 | US ---
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 GLAND SIZE: Right Lobe: cm Overall Parenchyma: Left Lobe: cm Overall Parenchyma: Isthmus Thickness: cm NODULES RIGHT: # of nodules measured on right: 1. X x cm nodule at the pole with margins; . This nodule is and shows . Prior size: x x cm 2. X x cm nodule at the pole with margins; . This nodule is and shows . Prior size: x x cm 3. X x cm nodule at the pole with margins; . This nodule is and shows . Prior size: x x cm 4. X x cm nodule at the pole with margins; . This nodule is and shows . Prior size: x x cm LEFT: # of nodules measured on left: 1. X x cm nodule at the pole with margins; . This nodule is and shows . Prior size: x x cm 2. X x cm nodule at the pole with margins; . This nodule is and shows . Prior size: x x cm 3. X x cm nodule at the pole with margins; . This nodule is and shows . Prior size: x x cm 4. X x cm nodule at the pole with margins; . This nodule is and shows . Prior size: x x cm ISTHMUS: # of nodules measured in the isthmus: 1. X x cm nodule at the pole with margins; . This nodule is and shows . Prior size: x x cm Bilateral neck scanned, no evidence of lymphadenopathy. 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 GLAND SIZE: Right Lobe: 5.3 x 1.4 x 1.8 cm Overall Parenchyma: heterogenous Left Lobe: 5.2 x 1.4 x 1.4 cm Overall Parenchyma: heterogeneous Isthmus Thickness: 0.3 cm NODULES RIGHT: # of nodules measured on right: 1. 0.6 X 0.5 x 0.6 cm solid nodule at the mid pole with well-defined margins. This nodule is wider than tall and shows no intranodular vascularity. Prior size: no prior LEFT: # of nodules measured on left: 0 ISTHMUS: # of nodules measured in the isthmus: 0 Bilateral neck scanned, no evidence of lymphadenopathy. IMPRESSION: Diffusely heterogenous and mildly enlarged thyroid. Correlate for thyroiditis. Single stephanie id subcentimeter right thyroid nodule is too small for fine-needle aspiration at this time.
== END ==
LOC: RADUSWWP 08:29
PROVIDERS: ATTEND Family Medicine
DX: E04.1 Nontoxic single thyroid nodule (principal); E04.9 Nontoxic goiter, unspecified
CPT/HCPCS: 76536

== ENCOUNTER → 2019-12-22 | Outpatient (CLI) | payer OTHER ==
--- NOTE | 2019-12-22 13:53 | XR ---
EXAMINATION TYPE: XR knee complete bilateral DATE OF EXAM: 12/22/2019 CLINICAL HISTORY: Bilateral knee pain TECHNIQUE: Three views of the bilateral knees were obtained. COMPARISON: None. FINDINGS: There is no acute fracture/dislocation evident in either knee. The tri-compartment joint spaces appear within normal limits. The overlying soft tissue appears unremarkable. Incidentally not ed left fabella. IMPRESSION: There is no acute fracture or dislocation in either knee. No significant arthropathy and radiograph bilaterally.
== END | disposition home or self-care (01) ==
LOC: RADXRMAIN 12:27
PROVIDERS: ATTEND Family Medicine
DX: M25.561 Pain in right knee (principal); M25.562 Pain in left knee

== ENCOUNTER 2020-10-02 16:07 | Emergency (ER) | payer OTHER ==
[2020-10-02] MEDS ORDERED: LORazepam 2 MG/ML INJ IV STA (16:28)
--- NOTE | 2020-10-02 16:32 | ED ---
General Adult HPI - General Stated complaint: heart palpitations Time Seen by Provider: 10/02/20 16:18 Source: patient, RN notes reviewed Limitations: no limitations - History of Present Illness Initial comments: Patient is a pleasant 34-year-old female presenting to the emergency department with complaints of palpitations. Patient does have history of chronic palpitations however this seems somewhat worse. Sensation is fluttering. Sensations have been waxing and waning. No chest discomfort. Patient does have fullness of the ears and feels like her hands are swollen. Symptoms are minimal at this time. Patient amiss to feeling somewhat anxious and is receptive to receiving medication for this. - Related Data Home Medications Medication Instructions Recorded Confirmed Norgestimate-Ethinyl Estradiol 1 tab PO DAILY 11/02/17 06/17/18 [Sprintec 28 Day Tablet] Levothyroxine Sodium [Synthroid] 50 mcg PO DAILY 06/17/18 06/17/18 Phentermine HCl 37.5 mg PO DAILY 06/17/18 06/17/18 Previous Rx's Medication Instructions Recorded Ibuprofen [Motrin] 600 mg PO Q8HR PRN #20 tab 06/17/18 predniSONE 50 mg PO DAILY #5 tablet 06/17/18 Allergies Allergy/AdvReac Type Severity Reaction Status Date / Time No Known Allergies Allergy Verified 10/02/20 16:33 Review of Systems ROS Statement: Those systems with pertinent positive or pertinent negative responses have been documented in the HPI. ROS Other: All systems not noted in ROS Statement are negative. Constitutional: Denies: fever Eyes: Denies: eye pain ENT: Denies: throat pain Respiratory: Denies: cough Cardiovascular: Reports: palpitations. 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 History of Any Multi-Drug Resistant Organisms: MRSA Date of last positivie culture/infection: 08/2011 MDRO Source:: right thigh Past Surgical History: Adenoidectomy, Section, Hernia Repair, Tonsillectomy Additional Past Surgical History / Comment(s): d and C, removal of endometrioma Past Anesthesia/Blood Transfusion Reactions: No Reported Reaction Past Psychological History: Anxiety, Depression Past Alcohol Use History: None Reported Past Drug Use History: None Reported - Past Family History Son(s) Additional Family Medical History / Comment(s): autism Grandmother Family Medical History: Blood Disorder, Congestive Heart Failure (CHF), Diabetes Mellitus, Hyperlipidemia General Exam Limitations: no limitations General appearance: alert, in no apparent distress Head exam: Present: normocephalic Eye exam: Present: normal appearance ENT exam: Present: TM's normal bilaterally Neck exam: Present: normal inspection Respiratory exam: Present: normal lung sounds bilaterally Cardiovascular Exam: Present: regular rate, normal rhythm, normal heart sounds. Absent: irregular rhythm Expanded Peripheral pulses: 2+: Radial (R), Radial (L) GI/Abdominal exam: Present: soft. Absent: tenderness Extremities exam: Present: normal inspection, other (No edema noticed of the hands). Absent: pedal edema, calf tenderness Neurological exam: Present: alert Psychiatric exam: Present: normal affect, normal mood Skin exam: Present: normal color Course Vital Signs 10/02/20 16:31 Temperature 98.5 F Pulse Rate 109 H Respiratory 18 Rate Blood Pressure 120/83 O2 Sat by Pulse 99 Oximetry EKG Findings - EKG Comments: EKG Findings:: Normal sinus rhythm 97. NM 126. QRS 82. QT 340. QTc 431. Normal axis. Normal QRS. No acute ST change. Medical Decision Making - Medical Decision Making Patient reevaluated and feeling much better. Heart rate remains sinus rhythm with a rate of 103. Patient updated on results and need for follow-up. - Lab Data Result diagrams: 10/02/20 16:36 10/02/20 16:36 Lab Results 10/02/20 10/02/20 10/02/20 Range/Units 16:36 16:36 16:36 WBC 11.5 H (3.8-10.6) k/uL RBC 4.69 (3.80-5.40) m/uL Hgb 11.5 (11.4-16.0) gm/dL Hct 34.9 (34.0-46.0) % MCV 74.5 L (80.0-100.0) fL MCH 24.5 L (25.0-35.0) pg MCHC 32.9 (31.0-37.0) g/dL RDW 15.1 (11.5-15.5) % Plt Count 380 (150-450) k/uL MPV 6.8 Neutrophils % 68 % Lymphocytes % 21 % Monocytes % 5 % Eosinophils % 3 % Basophils % 1 % Neutrophils # 7.8 H (1.3-7.7) k/uL Lymphocytes # 2.4 (1.0-4.8) k/uL Monocytes # 0.6 (0-1.0) k/uL Eosinophils # 0.4 (0-0.7) k/uL Basophils # 0.1 (0-0.2) k/uL Hypochromasia Slight Microcytosis Slight PT 9.4 (9.0-12.0) sec INR 0.9 (<1.2) APTT 23.6 (22.0-30.0) sec Sodium 138 (137-145) mmol/L Potassium 4.4 (3.5-5.1) mmol/L Chloride 104 (98-107) mmol/L Carbon Dioxide 25 (22-30) mmol/L Anion Gap 9 mmol/L BUN 15 (7-17) mg/dL Creatinine 0.63 (0.52-1.04) mg/dL Est GFR (CKD-EPI)AfAm >90 (>60 ml/min/1.73 sqM) Est GFR (CKD-EPI)NonAf >90 (>60 ml/min/1.73 sqM) Glucose 133 H (74-99) mg/dL Calcium 9.1 (8.4-10.2) mg/dL Magnesium 1.9 (1.6-2.3) mg/dL Total Bilirubin 0.2 (0.2-1.3) mg/dL AST 28 (14-36) U/L ALT 21 (4-34) U/L Alkaline Phosphatase 95 (38-126) U/L Troponin I (0.000-0.034) ng/mL Total Protein 7.4 (6.3-8.2) g/dL Albumin 4.0 (3.5-5.0) g/dL TSH 2.820 (0.465-4.680) mIU/L Free T4 0.62 L (0.78-2.19) ng/dL Free T3 pg/mL 2.9 (2.8-5.3) pg/ml 10/02/20 Range/Units 16:36 WBC (3.8-10.6) k/uL RBC (3.80-5.40) m/uL Hgb (11.4-16.0) gm/dL Hct (34.0-46.0) % MCV (80.0-100.0) fL MCH (25.0-35.0) pg MCHC (31.0-37.0) g/dL RDW (11.5-15.5) % Plt Count (150-450) k/uL MPV Neutrophils % % Lymphocytes % % Monocytes % % Eosinophils % % Basophils % % Neutrophils # (1.3-7.7) k/uL Lymphocytes # (1.0-4.8) k/uL Monocytes # (0-1.0) k/uL Eosinophils # (0-0.7) k/uL Basophils # (0-0.2) k/uL Hypochromasia Microcytosis PT (9.0-12.0) sec INR (<1.2) APTT (22.0-30.0) sec Sodium (137-145) mmol/L Potassium (3.5-5.1) mmol/L Chloride (98-107) mmol/L Carbon Dioxide (22-30) mmol/L Anion Gap mmol/L BUN (7-17) mg/dL Creatinine (0.52-1.04) mg/dL Est GFR (CKD-EPI)AfAm (>60 ml/min/1.73 sqM) Est GFR (CKD-EPI)NonAf (>60 ml/min/1.73 sqM) Glucose (74-99) mg/dL Calcium (8.4-10.2) mg/dL Magnesium (1.6-2.3) mg/dL Total Bilirubin (0.2-1.3) mg/dL AST (14-36) U/L ALT (4-34) U/L Alkaline Phosphatase (38-126) U/L Troponin I <0.012 (0.000-0.034) ng/mL Total Protein (6.3-8.2) g/dL Albumin (3.5-5.0) g/dL TSH (0.465-4.680) mIU/L Free T4 (0.78-2.19) ng/dL Free T3 pg/mL (2.8-5.3) pg/ml - Radiology Data Radiology results: image reviewed (Chest x-ray shows no acute process) Disposition Clinical Impression: Palpitations Disposition: HOME SELF-CARE Condition: Stable Instructions (If sedation given, give patient instructions): Heart Palpitations (ED) Additional Instructions: Please follow-up with primary care physician in the next couple days for recheck. Consider Holter monitor. Return for increased heart rate, chest pain or difficulty breathing, worsening symptoms or other concerns. Is patient prescribed a controlled substance at d/c from ED?: No Referrals: Xavier Gomez DO [Primary Care Provider] - 1-2 days Time of Disposition: 17:50
[2020-10-02 16:33] VITALS: RESP 18
[2020-10-02 16:45] LABS: Basophils # (A) 0.1 k/uL (0-0.2); Basophils % (A) 1 %; Eosinophils # (A) 0.4 k/uL (0-0.7); Eosinophils % (A) 3 %; HCT 34.9 % (34.0-46.0); HGB 11.5 gm/dL (11.4-16.0); Hypochromasia Slight; Lymphocytes # (A) 2.4 k/uL (1.0-4.8); Lymphocytes % (A) 21 %; MCH 24.5 pg (25.0-35.0); MCHC 32.9 g/dL (31.0-37.0); MCV 74.5 fL (80.0-100.0); Mean Platelet Volume 6.8; Microcytosis Slight; Monocytes # (A) 0.6 k/uL (0-1.0); Monocytes % (A) 5 %; Neutrophils # (A) 7.8 k/uL (1.3-7.7); Neutrophils % (A) 68 %; Platelet Count 380 k/uL (150-450); RBC 4.69 m/uL (3.80-5.40); RDW 15.1 % (11.5-15.5); WBC 11.5 k/uL (3.8-10.6)
[2020-10-02 16:55] LABS: ALT 21 U/L (4-34); AST 28 U/L (14-36); African American GFR (CKD) >90 (>60 ml/min/1.73 sqM); Alkaline Phosphatase 95 U/L (38-126); Anion Gap 9 mmol/L; Blood Urea Nitrogen 15 mg/dL (7-17); Calcium 9.1 mg/dL (8.4-10.2); Carbon Dioxide 25 mmol/L (22-30); Chloride 104 mmol/L (98-107); Glucose 133 mg/dL (74-99); Magnesium 1.9 mg/dL (1.6-2.3); Non-African American GFR(CKD) >90 (>60 ml/min/1.73 sqM); Potassium 4.4 mmol/L (3.5-5.1); Sodium 138 mmol/L (137-145); Total Bilirubin 0.2 mg/dL (0.2-1.3); Total Protein 7.4 g/dL (6.3-8.2)
[2020-10-02 17:00] LABS: INR 0.9 (<1.2); Partial Thromboplastin Time 23.6 sec (22.0-30.0); Prothrombin Time 9.4 sec (9.0-12.0)
[2020-10-02 17:12] LABS: T4, Free (Free Thyroxine) 0.62 ng/dL (0.78-2.19)
--- NOTE | 2020-10-02 17:16 | XR ---
EXAMINATION TYPE: XR chest 2V DATE OF EXAM: 10/02/2020 COMPARISON: 10/26/2017 HISTORY: Dysrhythmia TECHNIQUE: FINDINGS: Heart is normal. Lungs are clear of infiltrate. There is no heart failure. There are no hil ar masses. There are chest leads. Bony thorax is intact. IMPRESSION: No active cardiopulmonary disease. Normal heart. No change.
[2020-10-02 18:18] VITALS: BP 106/67; PULSE 112; TEMP 97.3
== END 2020-10-02 18:15 | disposition home or self-care (01) ==
LOC: EC 16:07
DX: R00.2 Palpitations (principal); E07.9 Disorder of thyroid, unspecified; Z79.3 Long term (current) use of hormonal contraceptives; Z79.890 Hormone replacement therapy; Z86.14 Personal history of Methicillin resistant Staphylococcus aureus infection
CPT/HCPCS: 36415; 93005; 84439; 84481; 80053; 83735; 84443; 84484; 85025; 85610; 85730; 71046; 99285; 96374; J2060

== ENCOUNTER 2021-07-04 11:23 | Emergency (ER) | payer OTHER ==
[2021-07-04 11:42] VITALS: TEMP 98.2
[2021-07-04] MEDS ORDERED: ONDANSETRON 4 MG/2 ML VIAL IVP STA (12:20)
[2021-07-04] MEDS ORDERED: SODIUM CHLORIDE 0.9% 1,000 ML IV STA (12:20)
[2021-07-04] MEDS ORDERED: KETOROLAC 15 MG/ML 1 ML VIAL IVP STA (12:20)
[2021-07-04 12:43] LABS: Basophils # (A) 0.1 k/uL (0-0.2); Basophils % (A) 1 %; Eosinophils # (A) 0.1 k/uL (0-0.7); Eosinophils % (A) 2 %; HGB 11.2 gm/dL (11.4-16.0); Hypochromasia Slight; Lymphocytes # (A) 1.9 k/uL (1.0-4.8); Lymphocytes % (A) 22 %; MCH 24.3 pg (25.0-35.0); MCHC 32.8 g/dL (31.0-37.0); MCV 73.9 fL (80.0-100.0); Mean Platelet Volume 7.3; Microcytosis Slight; Monocytes # (A) 0.5 k/uL (0-1.0); Monocytes % (A) 6 %; Neutrophils # (A) 5.8 k/uL (1.3-7.7); Neutrophils % (A) 67 %; Platelet Count 427 k/uL (150-450); RDW 15.8 % (11.5-15.5); WBC 8.6 k/uL (3.8-10.6)
[2021-07-04 12:53] LABS: Appearance,Urine Clear (Clear); Bilirubin,Urine Negative (Negative); Blood,Urine Negative (Negative); Color,Urine Yellow; Glucose,Urine (UA) 2+ (Negative); Ketones,Urine Negative (Negative); Leukocyte Esterase,Urine Negative (Negative); Nitrite,Urine Negative (Negative); PH, Urine 5.5 (5.0-8.0); Protein,Urine Trace (Negative); Specific Gravity,Urine 1.028 (1.001-1.035); Urobilinogen,Urine <2.0 mg/dL (<2.0)
[2021-07-04 12:55] LABS: ALT 22 U/L (4-34); AST 30 U/L (14-36); African American GFR (CKD) >90 (>60 ml/min/1.73 sqM); Albumin 4.2 g/dL (3.5-5.0); Alkaline Phosphatase 78 U/L (38-126); Anion Gap 11 mmol/L; Blood Urea Nitrogen 10 mg/dL (7-17); Calcium 9.6 mg/dL (8.4-10.2); Carbon Dioxide 23 mmol/L (22-30); Chloride 103 mmol/L (98-107); Glucose 128 mg/dL (74-99); Lipase 130 U/L (23-300); Non-African American GFR(CKD) >90 (>60 ml/min/1.73 sqM); Potassium 4.5 mmol/L (3.5-5.1); Sodium 137 mmol/L (137-145); Total Bilirubin 0.1 mg/dL (0.2-1.3); Total Protein 7.3 g/dL (6.3-8.2)
--- NOTE | 2021-07-04 13:09 | CT ---
EXAMINATION TYPE: CT abdomen pelvis w con DATE OF EXAM: 07/04/2021 COMPARISON: 10/26/2017 HISTORY: Back and pelvic pain. CT DLP: 1861.9 mGycm CONTRAST: CT scan of the abdomen and pelvis is performed without Oral Contrast and with IV Contrast, patient in jected with 100 mL of Isovue 300. FINDINGS: LUNG BASES-: No visible nodule. No infiltrate. LIVER/GB: Hepatic steatosis. Cholecystectomy clips in place. No space occupying hepatic lesion. Parker iary tree is of normal caliber. PANCREAS: No inflammation. No distinct mass. SPLEEN: No splenic enlargement. No lesion seen. ADRENALS: No nodule. No thickening. KIDNEYS/BLADDER: No hydronephrosis. No nephrolithiasis. No distinct renal mass. Urinary bladder g rossly unremarkable. BOWEL: Normal appendix. Normal bowel caliber. No inflammation. GENITAL ORGANS: Trace free fluid within the pelvis. No uterine or ovarian mass. LYMPH NODES: No greater than 1cm abdominal or pelvic lymph nodes are appreciated. AORTA: No significant abnormality. OSSEOUS STRUCTURES: No significant abnormality is seen. OTHER: No significant additional abnormality is seen. IMPRESSION: 1. No acute process identified at this time.
[2021-07-04] MEDS ORDERED: DICYCLOMINE 10 MG CAP PO STA (13:30)
--- NOTE | 2021-07-04 13:34 | ED ---
Abdominal Pain HPI - General Chief Complaint: Abdominal Pain Stated Complaint: Female Source: patient Mode of arrival: ambulatory Limitations: no limitations - History of Present Illness Initial Comments: Patient is a 35 old female past history of endometriosis, inguinal hernia with repair 2 who presents emergency department with reported suprapubic abdominal pain and bilateral flank pain. Reports the pain started last night. This morning she was having a bowel movement when the pain intensified. States it's sharp and stabbing in her suprapubic region. Denies dysuria, hematuria or voiding. Denies diarrhea, constipation, melenic stools or hematochezia. No abnormal vaginal bleeding or discharge. Last menstural cycle was one week ago. Denies concern for . She admits to nausea without vomiting. No fevers or chills. No recent abdominal surgeries. No other alleviating, precipitating or modifying factors - Related Data Home Medications Medication Instructions Recorded Confirmed Norgestimate-Ethinyl Estradiol 1 tab PO DAILY 11/02/17 07/04/21 [Sprintec 28 Day Tablet] Levothyroxine Sodium [Synthroid] 50 mcg PO DAILY 06/17/18 07/04/21 Previous Rx's Medication Instructions Recorded Dicyclomine [Bentyl] 10 mg PO TID #30 capsule 07/04/21 Allergies Allergy/AdvReac Type Severity Reaction Status Date / Time No Known Allergies Allergy Verified 07/04/21 13:08 Review of Systems ROS Statement: Those systems with pertinent positive or pertinent negative responses have been documented in the HPI. ROS Other: All systems not noted in ROS Statement are negative. 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 History of Any Multi-Drug Resistant Organisms: MRSA Date of last positivie culture/infection: 08/2011 MDRO Source:: right thigh Past Surgical History: Adenoidectomy, Section, Hernia Repair, Tonsillectomy Additional Past Surgical History / Comment(s): d and C, removal of endometrioma Past Anesthesia/Blood Transfusion Reactions: No Reported Reaction Past Psychological History: Anxiety, Depression Smoking Status: Never smoker Past Alcohol Use History: Occasional Past Drug Use History: None Reported - Past Family History Son(s) Additional Family Medical History / Comment(s): autism Grandmother Family Medical History: Blood Disorder, Congestive Heart Failure (CHF), Diabetes Mellitus, Hyperlipidemia General Exam Limitations: no limitations General appearance: alert, in no apparent distress Head exam: Present: atraumatic, normocephalic, normal inspection Eye exam: Present: normal appearance, PERRL, EOMI. Absent: scleral icterus, conjunctival injection, periorbital swelling ENT exam: Present: normal exam, mucous membranes moist Neck exam: Present: normal inspection. Absent: tenderness, meningismus, lymphadenopathy Respiratory exam: Present: normal lung sounds bilaterally. Absent: respiratory distress, wheezes, rales, rhonchi, stridor Cardiovascular Exam: Present: regular rate, normal rhythm, normal heart sounds. Absent: systolic murmur, diastolic murmur, rubs, gallop, clicks GI/Abdominal exam: Present: soft, normal bowel sounds. Absent: distended, tenderness, guarding, rebound, rigid Extremities exam: Present: normal inspection, full ROM, normal capillary refill. Absent: tenderness, pedal edema, joint swelling, calf tenderness Back exam: Present: normal inspection Neurological exam: Present: alert, oriented X3, CN II-XII intact Psychiatric exam: Present: normal affect, normal mood Skin exam: Present: warm, dry, intact, normal color. Absent: rash Course Vital Signs 07/04/21 11:38 Temperature 98.2 F Pulse Rate 98 Respiratory 19 Rate Blood Pressure 103/71 O2 Sat by Pulse 99 Oximetry Medical Decision Making - Medical Decision Making Upon arrival patient was placed in room 19. A thorough history and physical exam is performed. IV is established patient was given a liter bolus of normal saline, 15 mg of Toradol and 4 mg of Zofran. Laboratory studies are conducted and reviewed. Patient's glucose is 128. Urinalysis demonstrates 2+ glucose. Because of this I did add on a hemoglobin A1c. CT of the patient's abdomen and pelvis was performed which demonstrates no acute process. Patient is reevaluated. I did discuss diagnosis, differential treatment options. This time the patient was given a dose of Bentyl. Will be discharged home and is to follow-up with her primary care doctor. I did send a prescription for Bentyl over to the pharmacy. Her hemoglobin A1c results will be sent to her primary care doctor and [facility]. She is instructed that she needs to follow up with these results. She needs to return to the emergency room for any new or worsening symptoms. Patient was discharged home in stable condition. - Lab Data Result diagrams: 07/04/21 12:07/04/21 12: Lab Results 07/04/21 07/04/21 07/04/21 Range/Units 12: 12: 12: WBC 8.6 (3.8-10.6) k/uL RBC 4.60 (3.80-5.40) m/uL Hgb 11.2 L (11.4-16.0) gm/dL Hct 34.0 (34.0-46.0) % MCV 73.9 L (80.0-100.0) fL MCH 24.3 L (25.0-35.0) pg MCHC 32.8 (31.0-37.0) g/dL RDW 15.8 H (11.5-15.5) % Plt Count 427 (150-450) k/uL MPV 7.3 Neutrophils % 67 % Lymphocytes % 22 % Monocytes % 6 % Eosinophils % 2 % Basophils % 1 % Neutrophils # 5.8 (1.3-7.7) k/uL Lymphocytes # 1.9 (1.0-4.8) k/uL Monocytes # 0.5 (0-1.0) k/uL Eosinophils # 0.1 (0-0.7) k/uL Basophils # 0.1 (0-0.2) k/uL Hypochromasia Slight Microcytosis Slight Sodium 137 (137-145) mmol/L Potassium 4.5 (3.5-5.1) mmol/L Chloride 103 (98-107) mmol/L Carbon Dioxide 23 (22-30) mmol/L Anion Gap 11 mmol/L BUN 10 (7-17) mg/dL Creatinine 0.59 (0.52-1.04) mg/dL Est GFR (CKD-EPI)AfAm >90 (>60 ml/min/1.73 sqM) Est GFR (CKD-EPI)NonAf >90 (>60 ml/min/1.73 sqM) Glucose 128 H (74-99) mg/dL Calcium 9.6 (8.4-10.2) mg/dL Total Bilirubin 0.1 L (0.2-1.3) mg/dL AST 30 (14-36) U/L ALT 22 (4-34) U/L Alkaline Phosphatase 78 (38-126) U/L Total Protein 7.3 (6.3-8.2) g/dL Albumin 4.2 (3.5-5.0) g/dL Lipase 130 (23-300) U/L Urine Color Yellow Urine Appearance Clear (Clear) Urine pH 5.5 (5.0-8.0) Ur Specific [place] 1.028 (1.001-1.035) Urine Protein Trace H (Negative) Urine Glucose (UA) 2+ H (Negative) Urine Ketones Negative (Negative) Urine Blood Negative (Negative) Urine Nitrite Negative (Negative) Urine Bilirubin Negative (Negative) Urine Urobilinogen <2.0 (<2.0) mg/dL Ur Leukocyte Esterase Negative (Negative) Disposition Clinical Impression: Suprapubic abdominal pain Disposition: HOME SELF-CARE Condition: Stable Instructions (If sedation given, give patient instructions): Abdominal Pain (ED) Additional Instructions: Please take the Bentyl as directed. Follow up with your PCP in regards to the results of your hemoglobin A1c. Return to the ED for any new or worsening symptoms. Prescriptions: Dicyclomine [Bentyl] 10 mg PO TID #30 capsule Is patient prescribed a controlled substance at d/c from ED?: No Referrals: Xavier Gomez DO [Primary Care Provider] - 1-2 days Time of Disposition: 13:33
[2021-07-04 13:45] VITALS: BP 125/82; PULSE 92; RESP 18
[2021-07-04 21:37] LABS: Hemoglobin A1C 5.4 % (4.0-6.0)
== END 2021-07-04 13:45 | disposition home or self-care (01) ==
LOC: EC 11:23
DX: R10.30 Lower abdominal pain, unspecified (principal); E07.9 Disorder of thyroid, unspecified; F41.9 Anxiety disorder, unspecified; F32.9 Major depressive disorder, single episode, unspecified; Z79.899 Other long term (current) drug therapy
CPT/HCPCS: 36415; 80053; 83690; 85025; 81003; 81025; 83036; 74177; 99284; 96374; 96375; 96361; J2405; J1885; Q9967

== ENCOUNTER → 2022-05-29 | Outpatient (CLI) | payer OTHER ==
--- NOTE | 2022-05-29 09:08 | US ---
EXAMINATION TYPE: US pelvis complete transvag DATE OF EXAM: 05/29/2022 COMPARISON: CT, US CLINICAL HISTORY: N80.3 ENDOMETRIOSIS OF PELVIC PERITONEUM. Endometriosis. Hx mass removed from right adnexa 3 years ago-pt states this was an endometrioma. Hx C Section. A1. Hx 1 . TECHNIQUE: Transvaginal (TV) and Transabdominal (TA) . Transabdominal sonographic images of the pel vis were acquired. Transvaginal sonographic images were medically necessary to better assess the fol lowing anatomy: Right ovary. Date of LMP: Unknown per patient. EXAM MEASUREMENTS: Uterus: 7.4 x 5.1 x 4.0 cm Endometrial Stripe: 0.9 cm Right Ovary: Not seen with certainty. Left Ovary: Seen TA: 4.1 x 2.5 x 2.3 cm 1. Uterus: Anteverted heterogeneous. Hypoechoic area seen upper uterus left: 0.8 x 0.9 x 0.7 cm. S ubcentimeter anechoic areas in cervix likely representing blood products/fluid. 2. Endometrium: Measures 0.9 cm, LMP unknown. 3. Right Ovary: Not seen with certainty. 4. Left Ovary: Appears wnl TA. 5. Bilateral Adnexa: Fluid visualized in CDS, right adnexa, and left adnexa. Prominent vessels seen right adnexa. 6. Posterior cul-de-sac: Fluid seen. IMPRESSION: 1. Suspected submucosal fibroid. 2. No ultrasound evidence for endometriosis. MRI has better sensitivity for endometriosis. 3. Endometrium within normal limits for thickness. 4. Nonvisualization of the right ovary.
== END | disposition home or self-care (01) ==
LOC: RADUSWWP 07:30
PROVIDERS: ATTEND Obstetrics & Gynecology
DX: N80.3 Endometriosis of pelvic peritoneum (principal)
CPT/HCPCS: 76830; 76856

== ENCOUNTER → 2022-07-09 | Outpatient (CLI) | payer OTHER ==
[2022-07-09 18:56] LABS: Follicle Stimulating Hormone 6.7 mIU/mL; Luteinizing Hormone 8.1 mIU/mL; Testosterone 21.7 ng/mL (9.01-47.94)
[2022-07-10 16:38] LABS: Estrogens Total 180 pg/mL
== END | disposition home or self-care (01) ==
LOC: LABWHC1 09:31
PROVIDERS: ATTEND Family Medicine
DX: E03.9 Hypothyroidism, unspecified (principal); F32.1 Major depressive disorder, single episode, moderate; T78.40XA Allergy, unspecified, initial encounter
CPT/HCPCS: 36415; 82157; 82533; 82626; 82672; 83001; 83002; 84144; 84403

== ENCOUNTER → 2022-08-14 | Outpatient (CLI) | payer OTHER ==
--- NOTE | 2022-08-14 10:27 | US ---
EXAMINATION TYPE: US pelvis complete transvag DATE OF EXAM: 08/14/2022 COMPARISON: Renal ultrasound 05/29/2022 CLINICAL HISTORY: N80.3 ENDOMETRIOSIS OF PELVIC PERITONEUM. h/o endometriosis, , rt endometr ioma removed but patient unsure if ovary remains, assess for mild free fluid noted on previous exam TECHNIQUE: TA/TV. Transabdominal sonographic images of the pelvis were acquired. Transvaginal sono graphic images Date of LMP: unknown EXAM MEASUREMENTS: Uterus: 7.1 x 4.1 x .4 cm Endometrial Stripe: 0.5 cm Right Ovary: not seen Left Ovary: 1.9 x 1.5 x 2.0 cm 1. Uterus: Anteverted wnl 2. Endometrium: wnl 3. Right Ovary: not seen, possibly surgically absent. 4. Left Ovary: transabdominal views only appear wnl. 5. Bilateral Adnexa: wnl 6. Posterior cul-de-sac: wnl no free fluid seen within pelvis on today' exam IMPRESSION: 1. No acute process. 2. Endometrium is within normal limits with previously questioned submucosal fibroid not definitivel y visualized. 3. Nonvisualization of the right ovary. 4. Resolution of previously demonstrated free fluid.
== END | disposition home or self-care (01) ==
LOC: RADUSWWP 09:34
PROVIDERS: ATTEND Obstetrics & Gynecology
DX: N80.399 Endometriosis of the pelvic peritoneum, other specified sites, unspecified depth (principal)
CPT/HCPCS: 76830; 76856

== ENCOUNTER → 2023-06-15 | Outpatient (CLI) | payer OTHER ==
--- NOTE | 2023-07-08 15:29 | EM ---
EVENT MONITOR STUDY PERFORMED: A 14-day event monitor. FINDINGS: The patient was monitored for 14 days. The baseline rhythm appeared to be sinus mechanism with one episode of sinus tachycardia with heart rate of 125 beats per minute. The patient reported symptoms of heart racing and that was associated with sinus tachycardia. Also reported symptoms of irregular heart rhythm and that was associated with sinus tachycardia. CONCLUSION: 1. This is a 14-day event monitor. 2. The baseline rhythm is sinus rhythm with sinus tachycardia. 3. The patient reported symptoms of irregular heart rhythm and the symptoms were associated with sinus tachycardia. 4. No evidence of sinus pause or sinus arrest. 5. No any atrial fibrillation or atrial flutter noted. MMODL / IJN: [id number] /
--- NOTE | 2023-07-09 17:33 | P.CEMON ---
14 day event monitor for palpitations and paroxysmal atrial fibrillation Event monitor does not show any evidence for atrial fibrillation Sinus tachycardia noted Suggest Check thyroid function
== END | disposition home or self-care (01) ==
LOC: RADECHMAIN 07:33
PROVIDERS: ATTEND Family Medicine
DX: I48.0 Paroxysmal atrial fibrillation (principal); R00.0 Tachycardia, unspecified
CPT/HCPCS: 93270

== ENCOUNTER 2023-07-15 15:09 | Emergency (ER) | payer OTHER ==
--- NOTE | 2023-07-15 15:14 | ED ---
General Adult HPI - General Source: patient, RN notes reviewed Mode of arrival: ambulatory Limitations: no limitations <Washington Moise - Last Filed: 07/15/23 15:13> <Linden Moran - Last Filed: 07/15/23 21:16> - General Stated complaint: SOB Time Seen by Provider: 07/15/23 15:13 - History of Present Illness Initial comments: 37-year-old female presents emergency Department chief complaint shortness of breath. Patient states symptoms started Thursday. She states she went to [facility] for her shortness breath she was told her oxygen was low heart rate was regular elevated. Patient states she was admitted had a leave AGAINST MEDICAL ADVICE Thursday. Patient states she was scheduled for further testing. She states that she's been very lightheaded, dizzy states her heart rate has been elevated and she felt palpitations. Denies any leg pain or leg swelling. She states she believes she had a CAT scan ruling out blood clot. Patient does have a history of asthma states is not like her typical asthma. (Washington Moise) - Related Data Home Medications Medication Instructions Recorded Confirmed norgestimate-ethinyl estradioL 1 tab PO DAILY 11/02/17 07/04/21 [Sprintec 28 Day Tablet] Levothyroxine Sodium [Synthroid] 50 mcg PO DAILY 06/17/18 07/04/21 Previous Rx's Medication Instructions Recorded Dicyclomine [Bentyl] 10 mg PO TID #30 capsule 07/04/21 Allergies Allergy/AdvReac Type Severity Reaction Status Date / Time No Known Allergies Allergy Verified 07/15/23 16:06 Review of Systems ROS Other: All systems not noted in ROS Statement are negative. <Washington Moise - Last Filed: 07/15/23 15:13> ROS Other: All systems not noted in ROS Statement are negative. <Linden Moran - Last Filed: 07/15/23 21:16> ROS Statement: Those systems with pertinent positive or pertinent negative responses have been documented in the HPI. 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 History of Any Multi-Drug Resistant Organisms: MRSA Date of last positivie culture/infection: 08/2011 MDRO Source:: right thigh Past Surgical History: Adenoidectomy, Section, Hernia Repair, T onsillectomy Additional Past Surgical History / Comment(s): d and C, removal of endometrioma Past Anesthesia/Blood Transfusion Reactions: No Reported Reaction Past Psychological History: Anxiety, Depression Smoking Status: Never smoker Past Alcohol Use History: Occasional Past Drug Use History: None Reported - Past Family History Son(s) Additional Family Medical History / Comment(s): autism Grandmother Family Medical History: Blood Disorder, Congestive Heart Failure (CHF), Diabetes Mellitus, Hyperlipidemia <Washington Moise - Last Filed: 07/15/23 15:13> General Exam General appearance: alert, in no apparent distress <Washington Moise - Last Filed: 07/15/23 15:13> - General Exam Comments Initial Comments: Visual Physical Exam Vital signs reviewed General: Well-appearing, nontoxic, no acute distress. Head: Normocephalic, atraumatic Eyes: PERRLA, EOMI ENT: Airway patent Chest: Nonlabored breathing Skin: No visual rash, normal skin tone Neuro: Alert and oriented 3 Musculoskeletal: No gross abnormalities (Washington Moise) Course Vital Signs 07/15/23 07/15/23 07/15/23 16:03 19:00 19:30 Temperature 98.2 F 98.2 F 98.6 F Pulse Rate 94 88 70 Respiratory 24 18 18 Rate Blood Pressure 122/84 127/79 128/80 O2 Sat by Pulse 100 100 98 Oximetry 07/15/23 20:00 Temperature Pulse Rate 70 Respiratory 18 Rate Blood Pressure 114/82 O2 Sat by Pulse 99 Oximetry Medical Decision Making <Washington Moise - Last Filed: 07/15/23 15:13> - Lab Data Result diagrams: 07/15/23 17:10 07/15/23 17:10 <Linden Moran - Last Filed: 07/15/23 21:16> - Medical Decision Making I performed the quick note portion of this chart signed Washington Higginbotham PA-C) - Lab Data Lab Results 07/15/23 07/15/23 07/15/23 Range/Units 17:10 17:10 17:10 WBC 12.4 H (3.8-10.6) k/uL RBC 4.83 (3.80-5.40) m/uL Hgb 11.0 L (11.4-16.0) gm/dL Hct 34.2 (34.0-46.0) % MCV 70.8 L (80.0-100.0) fL MCH 22.8 L (25.0-35.0) pg MCHC 32.1 (31.0-37.0) g/dL RDW 15.3 (11.5-15.5) % Plt Count 405 (150-450) k/uL MPV 7.6 Neutrophils % 65 % Lymphocytes % 26 % Monocytes % 6 % Eosinophils % 2 % Basophils % 1 % Neutrophils # 8.1 H (1.3-7.7) k/uL Lymphocytes # 3.2 (1.0-4.8) k/uL Monocytes # 0.7 (0-1.0) k/uL Eosinophils # 0.2 (0-0.7) k/uL Basophils # 0.1 (0-0.2) k/uL Hypochromasia Slight Microcytosis Moderate PT 10.1 (9.0-12.0) sec INR 0.9 (<1.2) APTT 24.2 (22.0-30.0) sec Sodium 136 L (137-145) mmol/L Potassium 4.0 (3.5-5.1) mmol/L Chloride 102 (98-107) mmol/L Carbon Dioxide 24 (22-30) mmol/L Anion Gap 10 mmol/L BUN 11 (7-17) mg/dL Creatinine 0.64 (0.52-1.04) mg/dL Est GFR (CKD-EPI)AfAm >90 (>60 ml/min/1.73 sqM) Est GFR (CKD-EPI)NonAf >90 (>60 ml/min/1.73 sqM) Glucose 110 H (74-99) mg/dL Lactic Ac Sepsis Rflx Plasma Lactic Acid Luis Alfredo (0.7-2.0) mmol/L Calcium 9.7 (8.4-10.2) mg/dL Magnesium 1.8 (1.6-2.3) mg/dL Total Bilirubin 0.3 (0.2-1.3) mg/dL AST 74 H (14-36) U/L ALT 42 H (4-34) U/L Alkaline Phosphatase 72 (38-126) U/L Troponin I (0.000-0.034) ng/mL NT-Pro-B Natriuret Pep 24 pg/mL Total Protein 7.7 (6.3-8.2) g/dL Albumin 4.2 (3.5-5.0) g/dL TSH (0.465-4.680) mIU/L Urine Color Urine Appearance (Clear) Urine pH (5.0-8.0) Ur Specific [place] (1.001-1.035) Urine Protein (Negative) Urine Glucose (UA) (Negative) Urine Ketones (Negative) Urine Blood (Negative) Urine Nitrite (Negative) Urine Bilirubin (Negative) Urine Urobilinogen (<2.0) mg/dL Ur Leukocyte Esterase (Negative) Urine RBC (0-5) /hpf Urine WBC (0-5) /hpf Ur Squamous Epith Cells (0-4) /hpf Urine Bacteria (None) /hpf Hyaline Casts (0-2) /lpf Urine Mucus (None) /hpf Urine Yeast (Budding) (None) /hpf 07/15/23 07/15/23 07/15/23 Range/Units 17:10 17:10 17:10 WBC (3.8-10.6) k/uL RBC (3.80-5.40) m/uL Hgb (11.4-16.0) gm/dL Hct (34.0-46.0) % MCV (80.0-100.0) fL MCH (25.0-35.0) pg MCHC (31.0-37.0) g/dL RDW (11.5-15.5) % Plt Count (150-450) k/uL MPV Neutrophils % % Lymphocytes % % Monocytes % % Eosinophils % % Basophils % % Neutrophils # (1.3-7.7) k/uL Lymphocytes # (1.0-4.8) k/uL Monocytes # (0-1.0) k/uL Eosinophils # (0-0.7) k/uL Basophils # (0-0.2) k/uL Hypochromasia Microcytosis PT (9.0-12.0) sec INR (<1.2) APTT (22.0-30.0) sec Sodium (137-145) mmol/L Potassium (3.5-5.1) mmol/L Chloride (98-107) mmol/L Carbon Dioxide (22-30) mmol/L Anion Gap mmol/L BUN (7-17) mg/dL Creatinine (0.52-1.04) mg/dL Est GFR (CKD-EPI)AfAm (>60 ml/min/1.73 sqM) Est GFR (CKD-EPI)NonAf (>60 ml/min/1.73 sqM) Glucose (74-99) mg/dL Lactic Ac Sepsis Rflx Plasma Lactic Acid Luis Alfredo 2.5 H* (0.7-2.0) mmol/L Calcium (8.4-10.2) mg/dL Magnesium (1.6-2.3) mg/dL Total Bilirubin (0.2-1.3) mg/dL AST (14-36) U/L ALT (4-34) U/L Alkaline Phosphatase (38-126) U/L Troponin I <0.012 (0.000-0.034) ng/mL NT-Pro-B Natriuret Pep pg/mL Total Protein (6.3-8.2) g/dL Albumin (3.5-5.0) g/dL TSH 7.060 H (0.465-4.680) mIU/L Urine Color Urine Appearance (Clear) Urine pH (5.0-8.0) Ur Specific [place] (1.001-1.035) Urine Protein (Negative) Urine Glucose (UA) (Negative) Urine Ketones (Negative) Urine Blood (Negative) Urine Nitrite (Negative) Urine Bilirubin (Negative) Urine Urobilinogen (<2.0) mg/dL Ur Leukocyte Esterase (Negative) Urine RBC (0-5) /hpf Urine WBC (0-5) /hpf Ur Squamous Epith Cells (0-4) /hpf Urine Bacteria (None) /hpf Hyaline Casts (0-2) /lpf Urine Mucus (None) /hpf Urine Yeast (Budding) (None) /hpf 07/15/23 07/15/23 Range/Units 18:14 19:00 WBC (3.8-10.6) k/uL RBC (3.80-5.40) m/uL Hgb (11.4-16.0) gm/dL Hct (34.0-46.0) % MCV (80.0-100.0) fL MCH (25.0-35.0) pg MCHC (31.0-37.0) g/dL RDW (11.5-15.5) % Plt Count (150-450) k/uL MPV Neutrophils % % Lymphocytes % % Monocytes % % Eosinophils % % Basophils % % Neutrophils # (1.3-7.7) k/uL Lymphocytes # (1.0-4.8) k/uL Monocytes # (0-1.0) k/uL Eosinophils # (0-0.7) k/uL Basophils # (0-0.2) k/uL Hypochromasia Microcytosis PT (9.0-12.0) sec INR (<1.2) APTT (22.0-30.0) sec Sodium (137-145) mmol/L Potassium (3.5-5.1) mmol/L Chloride (98-107) mmol/L Carbon Dioxide (22-30) mmol/L Anion Gap mmol/L BUN (7-17) mg/dL Creatinine (0.52-1.04) mg/dL Est GFR (CKD-EPI)AfAm (>60 ml/min/1.73 sqM) Est GFR (CKD-EPI)NonAf (>60 ml/min/1.73 sqM) Glucose (74-99) mg/dL Lactic Ac Sepsis Rflx Y Plasma Lactic Acid Luis Alfredo (0.7-2.0) mmol/L Calcium (8.4-10.2) mg/dL Magnesium (1.6-2.3) mg/dL Total Bilirubin (0.2-1.3) mg/dL AST (14-36) U/L ALT (4-34) U/L Alkaline Phosphatase (38-126) U/L Troponin I (0.000-0.034) ng/mL NT-Pro-B Natriuret Pep pg/mL Total Protein (6.3-8.2) g/dL Albumin (3.5-5.0) g/dL TSH (0.465-4.680) mIU/L Urine Color Light Yellow Urine Appearance Cloudy H (Clear) Urine pH 5.5 (5.0-8.0) Ur Specific [place] 1.023 (1.001-1.035) Urine Protein Negative (Negative) Urine Glucose (UA) Negative (Negative) Urine Ketones 1+ H (Negative) Urine Blood Small H (Negative) Urine Nitrite Negative (Negative) Urine Bilirubin Negative (Negative) Urine Urobilinogen <2.0 (<2.0) mg/dL Ur Leukocyte Esterase Negative (Negative) Urine RBC 2 (0-5) /hpf Urine WBC 4 (0-5) /hpf Ur Squamous Epith Cells 2 (0-4) /hpf Urine Bacteria Many H (None) /hpf Hyaline Casts 3 H (0-2) /lpf Urine Mucus Many H (None) /hpf Urine Yeast (Budding) Occasional H (None) /hpf Disposition <Washington Moise - Last Filed: 07/15/23 15:13> Is patient prescribed a controlled substance at d/c from ED?: No <Linden Moran - Last Filed: 07/15/23 21:16> Clinical Impression: Hypothyroidism, Palpitations Disposition: HOME SELF-CARE Condition: Good Instructions (If sedation given, give patient instructions): Hypothyroidism (ED), Heart Palpitations (ED) Referrals: Claire Brown MD [REFERRING] - 1-2 days Xavier Gomez DO [Primary Care Provider] - 1-2 days Nancy Reyes [STAFF PHYSICIAN] - 1-2 days Rylan Baxter MD [STAFF PHYSICIAN] - 1-2 days
[2023-07-15 17:39] LABS: Basophils # (A) 0.1 k/uL (0-0.2); Basophils % (A) 1 %; Eosinophils # (A) 0.2 k/uL (0-0.7); Eosinophils % (A) 2 %; HCT 34.2 % (34.0-46.0); Hypochromasia Slight; Lymphocytes # (A) 3.2 k/uL (1.0-4.8); Lymphocytes % (A) 26 %; MCH 22.8 pg (25.0-35.0); MCHC 32.1 g/dL (31.0-37.0); MCV 70.8 fL (80.0-100.0); Mean Platelet Volume 7.6; Microcytosis Moderate; Monocytes # (A) 0.7 k/uL (0-1.0); Monocytes % (A) 6 %; Neutrophils # (A) 8.1 k/uL (1.3-7.7); Neutrophils % (A) 65 %; Platelet Count 405 k/uL (150-450); RBC 4.83 m/uL (3.80-5.40); RDW 15.3 % (11.5-15.5); WBC 12.4 k/uL (3.8-10.6)
[2023-07-15 17:46] LABS: ALT 42 U/L (4-34); AST 74 U/L (14-36); African American GFR (CKD) >90 (>60 ml/min/1.73 sqM); Albumin 4.2 g/dL (3.5-5.0); Alkaline Phosphatase 72 U/L (38-126); Anion Gap 10 mmol/L; Blood Urea Nitrogen 11 mg/dL (7-17); Calcium 9.7 mg/dL (8.4-10.2); Carbon Dioxide 24 mmol/L (22-30); Chloride 102 mmol/L (98-107); Glucose 110 mg/dL (74-99); Magnesium 1.8 mg/dL (1.6-2.3); Non-African American GFR(CKD) >90 (>60 ml/min/1.73 sqM); Sodium 136 mmol/L (137-145); Total Bilirubin 0.3 mg/dL (0.2-1.3); Total Protein 7.7 g/dL (6.3-8.2)
[2023-07-15 17:47] LABS: INR 0.9 (<1.2); Partial Thromboplastin Time 24.2 sec (22.0-30.0); Prothrombin Time 10.1 sec (9.0-12.0)
[2023-07-15 17:54] LABS: NT-Pro-B-Type Natriuretic Pept 24 pg/mL
[2023-07-15 19:23] VITALS: RESP 18
[2023-07-15] MEDS ORDERED: SODIUM CHLORIDE 0.9% 1,000 ML IV ONE (19:25)
--- NOTE | 2023-07-15 19:26 | XR ---
EXAMINATION TYPE: XR chest 2V DATE OF EXAM: 07/15/2023 7:20 PM COMPARISON: Chest radiographs from 10/02/2020 TECHNIQUE: XR chest 2V Frontal and lateral views of the chest. CLINICAL INDICATION:Female, 37 years old with history of difficulty breathing.; FINDINGS: Lungs/Pleura: There is no evidence of pleural effusion, focal consolidation, or pneumothorax. Elevat ion of the right hemidiaphragm. Pulmonary vascularity: Unremarkable. Heart/mediastinum: Cardiomediastinal silhouette is unremarkable. Musculoskeletal: No acute osseous pathology. Dextrocurvature of the thoracic spine. IMPRESSION: No acute cardiopulmonary disease/process.
[2023-07-15 20:05] LABS: Appearance,Urine Cloudy (Clear); Bacteria,Urine Many /hpf; Bilirubin,Urine Negative (Negative); Blood,Urine Small (Negative); Budding Yeast,Urine Occasional /hpf; Color,Urine Light Yellow; Glucose,Urine (UA) Negative (Negative); Hyaline Casts,Urine 3 /lpf (0-2); Ketones,Urine 1+ (Negative); Leukocyte Esterase,Urine Negative (Negative); Mucus,Urine Many /hpf; Nitrite,Urine Negative (Negative); PH, Urine 5.5 (5.0-8.0); Protein,Urine Negative (Negative); RBC,Urine 2 /hpf (0-5); Specific Gravity,Urine 1.023 (1.001-1.035); Squamous Epithelial Cell,Urine 2 /hpf (0-4); Urobilinogen,Urine <2.0 mg/dL (<2.0); WBC,Urine 4 /hpf (0-5)
[2023-07-15 21:18] VITALS: BP 117/78; PULSE 74; TEMP 98
== END 2023-07-15 21:19 | disposition home or self-care (01) ==
LOC: EC 15:09
DX: E03.9 Hypothyroidism, unspecified (principal); R00.2 Palpitations; Z86.59 Personal history of other mental and behavioral disorders
CPT/HCPCS: 36415; 71046; 80053; 81001; 83605; 83735; 83880; 84443; 84484; 85025; 85610; 85730; 93005; 96360; 96361; 99285

== ENCOUNTER 2023-09-16 17:20 | Emergency (ER) | payer OTHER ==
--- NOTE | 2023-09-16 18:37 | ED ---
General Adult HPI - General Source: patient, RN notes reviewed <Amber Rendon - Last Filed: 09/16/23 18:49> - General Source: patient, RN notes reviewed, old records reviewed Mode of arrival: ambulatory Limitations: no limitations - History of Present Illness -: days(s) Location: abdomen Radiation: abdomen Severity scale (1-10): 4 Quality: stabbing Consistency: constant Improves with: none Worsens with: none Associated Symptoms: loss of appetite, nausea/vomiting, weakness Treatments Prior to Arrival: none <Garry Mensah - Last Filed: 09/17/23 22:32> - General Stated complaint: abd pain/back pain - History of Present Illness Initial comments: 37-year-old female presents emergency Department with chief complaint of "spleen and liver problems." Patient states that she was evaluated at [facility] 3 weeks ago and again on Thursday. She states she had a computed tomography scan 3 weeks ago and was told that her spleen was enlarged at that time. She reports the pain is on the left side of her abdomen and she notes that today she has left-sided back pain. This is a new symptom for her. She admits to nausea without vomiting. She also admits to urinary frequency without burning with urination. She reports the pain is worse with eating. (Amber Rendon) This is a 37-year-old female to the emergency department for evaluation of multiple issues. Patient states she is at [facility] recently where she was told she may have something wrong with her spleen and/or liver. Patient states the pain has been persistent especially after she eats, patient is a gallbladder removal as well as multiple C-sections as well as hernia surgery. no other abdominal surgeries (Garry Mensah) - Related Data Home Medications Medication Instructions Recorded Confirmed norgestimate-ethinyl estradioL 1 tab PO DAILY 11/02/17 07/04/21 [Sprintec 28 Day Tablet] Levothyroxine Sodium [Synthroid] 50 mcg PO DAILY 06/17/18 07/04/21 Previous Rx's Medication Instructions Recorded Dicyclomine [Bentyl] 10 mg PO TID #30 capsule 07/04/21 Allergies Allergy/AdvReac Type Severity Reaction Status Date / Time No Known Allergies Allergy Verified 09/16/23 18:38 Review of Systems ROS Other: All systems not noted in ROS Statement are negative. <Amber Rendon - Last Filed: 09/16/23 18:49> ROS Other: All systems not noted in ROS Statement are negative. <Garry Mensah - Last Filed: 09/17/23 22:32> ROS Statement: Those systems with pertinent positive or pertinent negative responses have been documented in the HPI. 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 History of Any Multi-Drug Resistant Organisms: MRSA Date of last positivie culture/infection: 08/2011 MDRO Source:: right thigh Past Surgical History: Adenoidectomy, Section, Hernia Repair, To nsillectomy Additional Past Surgical History / Comment(s): d and C, removal of endometrioma Past Anesthesia/Blood Transfusion Reactions: No Reported Reaction Past Psychological History: Anxiety, Depression Smoking Status: Never smoker Past Alcohol Use History: Occasional Past Drug Use History: None Reported - Past Family History Son(s) Additional Family Medical History / Comment(s): autism Grandmother Family Medical History: Blood Disorder, Congestive Heart Failure (CHF), Diabetes Mellitus, Hyperlipidemia <RanchoritchieAmber edwards - Last Filed: 09/16/23 18:49> General Exam <RanchoritchieAmber edwards - Last Filed: 09/16/23 18:49> General appearance: alert, in no apparent distress Head exam: Present: atraumatic, normocephalic, normal inspection Eye exam: Present: normal appearance, PERRL, EOMI. Absent: scleral icterus, conjunctival injection, periorbital swelling ENT exam: Present: normal exam, mucous membranes moist Neck exam: Present: normal inspection. Absent: tenderness, meningismus, lymph adenopathy Respiratory exam: Present: normal lung sounds bilaterally. Absent: respiratory distress, wheezes, rales, rhonchi, stridor Cardiovascular Exam: Present: regular rate, normal rhythm, normal heart sounds. Absent: systolic murmur, diastolic murmur, rubs, gallop, clicks GI/Abdominal exam: Present: soft, normal bowel sounds. Absent: distended, tenderness, guarding, rebound, rigid Extremities exam: Present: normal inspection, full ROM, normal capillary refill. Absent: tenderness, pedal edema, joint swelling, calf tenderness Back exam: Present: normal inspection Neurological exam: Present: alert, oriented X3, CN II-XII intact Psychiatric exam: Present: normal affect, normal mood Skin exam: Present: warm, dry, intact, normal color. Absent: rash <Garry Mensah - Last Filed: 09/17/23 22:32> - General Exam Comments Initial Comments: Visual Physical Exam Vital signs reviewed General: Well-appearing, nontoxic, no acute distress. Head: Normocephalic, atraumatic Eyes: PERRLA, EOMI ENT: Airway patent Chest: Nonlabored breathing Skin: No visual rash, normal skin tone Neuro: Alert and oriented 3 Musculoskeletal: No gross abnormalities (Amber Rendon) Course <Garry Mensah - Last Filed: 09/17/23 22:32> Vital Signs 09/16/23 09/16/23 09/17/23 18:33 23:40 04:00 Temperature 98.8 F 97.9 F 97.8 F Pulse Rate 95 67 75 Respiratory 18 18 19 Rate Blood Pressure 125/90 117/70 111/65 O2 Sat by Pulse 99 100 98 Oximetry 09/17/23 06:55 Temperature 98 F Pulse Rate 74 Respiratory 18 Rate Blood Pressure 115/62 O2 Sat by Pulse 98 Oximetry - Reevaluation(s) Reevaluation #1: 09/17/23 01:06 Medical record is reviewed (Garry Mensah) Reevaluation #2: 09/17/23 01:06 Patient symptoms are improving (Garry Mensah) Reevaluation #3: 09/17/23 01:06 Patient informed results questions answered (Garry Mensah) Reevaluation #4: 09/17/23 01:06 Was pt. sent in by a medical professional or institution (Dr. PA, INSIDE SALES ACCOUNT EXECUTIVE, urgent care, hospital, or snf...) When possible be specific @ -no Did you speak to anyone other than the patient for history (EMS, parent, family, police, friend...)? What history was obtained from this source @ -no Did you review nursing and triage notes (agree or disagree)? Why? @ -agree Are old charts reviewed (outside hosp., previous admission, EMS record, old EKG, old radiological studies, urgent care reports/EKG's, snf records)? Report findings @ -yes Differential Diagnosis (chest pain, altered mental status, abdominal pain women, abdominal pain men, vaginal bleeding, weakness, fever, dyspnea, syncope, headache, dizziness, GI bleed, back pain, seizure, CVA, palpatations, mental health, musculoskeletal)? @ -prior EKG interpreted by me (3pts min.). @ -no X-rays interpreted by me (1pt min.). @ -no CT interpreted by me (1pt min.). @ -yes U/S interpreted by me (1pt. min.). @ -no What testing was considered but not performed or refused? (CT, X-rays, U/S, labs)? Why? @ -none What meds were considered but not given or refused? Why? @ -none Did you discuss the management of the patient with other professionals (professionals i.e. , PA, INSIDE SALES ACCOUNT EXECUTIVE, lab, RT, psych nurse, social services designee, senior architectural designer, teacher, chief marketing officer, case picker)? Give summary @ -no Was smoking cessation discussed for >3mins.? @ -no Was critical care preformed (if so, how long)? @ -no Were there social determinants of health that impacted care today? How? (Homel essness, low income, unemployed, alcoholism, drug addiction, transportation, low edu. Level, literacy, decrease access to med. care, snf, rehab)? @ -none Was there de-escalation of care discussed even if they declined (Discuss DNR or withdrawal of care, Hospice)? DNR status @ -no What co-morbidities impacted this encounter? (DM, HTN, Smoking, COPD, CAD, Cancer, CVA, ARF, Chemo, Hep., AIDS, mental health diagnosis, sleep apnea, morbid obesity)? @ -none Was patient admitted / discharged? Hospital course, mention meds given and route, prescriptions, significant lab abnormalities, going to OR and other pertinent info. @ - 37 female to the emergency department for evaluation of abdominal pain with recent diagnosis of increased size of spleen or liver, patient has normal testing here in the ER normal labs pain is controlled and she can be discharged home Charged Undiagnosed new problem with uncertain prognosis? @ -no Drug Therapy requiring intensive monitoring for toxicity (Heparin, Nitro, Insulin, Cardizem)? @ -no Were any procedures done? @ -no Diagnosis/symptom? @ -Abdominal pain Acute, or Chronic, or Acute on Chronic? @ -Acute Uncomplicated (without systemic symptoms) or Complicated (systemic symptoms)? @ -Complicated Side effects of treatment? @ -no Exacerbation, Progression, or Severe Exacerbation? @ -exacerbation Poses a threat to life or bodily function? How? (Chest pain, [place], ME, pneumonia, PE, COPD, DKA, ARF, appy, cholecystitis, CVA, Diverticulitis, Homicidal, Suicidal, threat to staff... and all critical care pts) @ -no (Garry Mensah) Reevaluation #5: 09/17/23 01:06 Differential Abdominal Pain Women: Appendicitis, Cholecystitis, diverticulosis, ischemic bowel, pancreatitis, hepatitis, UTI, gastroenteritis, AAA, incarcerated hernia, bowel obstruction, constipation, inflammatory bowel, hepatitis, peptic ulcer disease, splenic infarction, perforated viscus, vulvitis, ovarian torsion, PID, kidney stone, placenta abruption, this is not meant to be an all-inclusive list (Garry Mayes) Medical Decision Making <Amber Rendon - Last Filed: 09/16/23 18:49> - Lab Data Result diagrams: 09/16/23 21:06 09/16/23 21:06 - Radiology Data Radiology results: report reviewed (CT head and pelvis is negative for acute disease), image reviewed <Garry Mensah - Last Filed: 09/17/23 22:32> - Medical Decision Making I preformed the quick note portion of this chart. Electronically signed by Amber Rendon PA-C. (Amber Rendon) 37 female to the emergency department for evaluation of abdominal pain with recent diagnosis of increased size of spleen or liver, patient has normal testing here in the ER normal labs pain is controlled and she can be discharged home (Garry Mensah) - Lab Data Lab Results 09/16/23 09/16/23 09/16/23 Range/Units 19:17 19:17 21:06 WBC 10.7 H (3.8-10.6) k/uL RBC 4.66 (3.80-5.40) m/uL Hgb 10.6 L (11.4-16.0) gm/dL Hct 33.3 L (34.0-46.0) % MCV 71.4 L (80.0-100.0) fL MCH 22.7 L (25.0-35.0) pg MCHC 31.8 (31.0-37.0) g/dL RDW 15.6 H (11.5-15.5) % Plt Count 397 (150-450) k/uL MPV 8.2 Neutrophils % 58 % Lymphocytes % 32 % Monocytes % 6 % Eosinophils % 2 % Basophils % 1 % Neutrophils # 6.2 (1.3-7.7) k/uL Lymphocytes # 3.4 (1.0-4.8) k/uL Monocytes # 0.6 (0-1.0) k/uL Eosinophils # 0.2 (0-0.7) k/uL Basophils # 0.1 (0-0.2) k/uL Hypochromasia Moderate Microcytosis Moderate Sodium (137-145) mmol/L Potassium (3.5-5.1) mmol/L Chloride (98-107) mmol/L Carbon Dioxide (22-30) mmol/L Anion Gap mmol/L BUN (7-17) mg/dL Creatinine (0.52-1.04) mg/dL Est GFR (CKD-EPI)AfAm (>60 ml/min/1.73 sqM) Est GFR (CKD-EPI)NonAf (>60 ml/min/1.73 sqM) Glucose (74-99) mg/dL Calcium (8.4-10.2) mg/dL Total Bilirubin (0.2-1.3) mg/dL AST (14-36) U/L ALT (4-34) U/L Alkaline Phosphatase (38-126) U/L Total Protein (6.3-8.2) g/dL Albumin (3.5-5.0) g/dL Amylase (30-110) U/L Lipase (23-300) U/L Urine Color Light Yellow Urine Appearance Clear (Clear) Urine pH 5.5 (5.0-8.0) Ur Specific [place] 1.022 (1.001-1.035) Urine Protein Negative (Negative) Urine Glucose (UA) Negative (Negative) Urine Ketones Trace H (Negative) Urine Blood Negative (Negative) Urine Nitrite Negative (Negative) Urine Bilirubin Negative (Negative) Urine Urobilinogen <2.0 (<2.0) mg/dL Ur Leukocyte Esterase Negative (Negative) Urine HCG, Qual Not Detected (Not Detectd) 09/16/23 Range/Units 21:06 WBC (3.8-10.6) k/uL RBC (3.80-5.40) m/uL Hgb (11.4-16.0) gm/dL Hct (34.0-46.0) % MCV (80.0-100.0) fL MCH (25.0-35.0) pg MCHC (31.0-37.0) g/dL RDW (11.5-15.5) % Plt Count (150-450) k/uL MPV Neutrophils % % Lymphocytes % % Monocytes % % Eosinophils % % Basophils % % Neutrophils # (1.3-7.7) k/uL Lymphocytes # (1.0-4.8) k/uL Monocytes # (0-1.0) k/uL Eosinophils # (0-0.7) k/uL Basophils # (0-0.2) k/uL Hypochromasia Microcytosis Sodium 139 (137-145) mmol/L Potassium 4.0 (3.5-5.1) mmol/L Chloride 102 (98-107) mmol/L Carbon Dioxide 23 (22-30) mmol/L Anion Gap 14 mmol/L BUN 11 (7-17) mg/dL Creatinine 0.70 (0.52-1.04) mg/dL Est GFR (CKD-EPI)AfAm >90 (>60 ml/min/1.73 sqM) Est GFR (CKD-EPI)NonAf >90 (>60 ml/min/1.73 sqM) Glucose 91 (74-99) mg/dL Calcium 9.9 (8.4-10.2) mg/dL Total Bilirubin 0.3 (0.2-1.3) mg/dL AST 34 (14-36) U/L ALT 37 H (4-34) U/L Alkaline Phosphatase 77 (38-126) U/L Total Protein 8.0 (6.3-8.2) g/dL Albumin 4.5 (3.5-5.0) g/dL Amylase 63 (30-110) U/L Lipase 117 (23-300) U/L Urine Color Urine Appearance (Clear) Urine pH (5.0-8.0) Ur Specific [place] (1.001-1.035) Urine Protein (Negative) Urine Glucose (UA) (Negative) Urine Ketones (Negative) Urine Blood (Negative) Urine Nitrite (Negative) Urine Bilirubin (Negative) Urine Urobilinogen (<2.0) mg/dL Ur Leukocyte Esterase (Negative) Urine HCG, Qual (Not Detectd) Disposition <Amber Rendon - Last Filed: 09/16/23 18:49> Is patient prescribed a controlled substance at d/c from ED?: No Time of Disposition: 04:40 <Garry Mensah - Last Filed: 09/17/23 22:32> Clinical Impression: Abdominal pain Disposition: HOME SELF-CARE Condition: Good Instructions (If sedation given, give patient instructions): Abdominal Pain (ED) Referrals: Xavier Gomez DO [Primary Care Provider] - 1-2 days
[2023-09-16 21:05] LABS: Appearance,Urine Clear (Clear); Bilirubin,Urine Negative (Negative); Blood,Urine Negative (Negative); Color,Urine Light Yellow; Glucose,Urine (UA) Negative (Negative); Ketones,Urine Trace (Negative); Leukocyte Esterase,Urine Negative (Negative); Nitrite,Urine Negative (Negative); PH, Urine 5.5 (5.0-8.0); Protein,Urine Negative (Negative); Specific Gravity,Urine 1.022 (1.001-1.035); Urobilinogen,Urine <2.0 mg/dL (<2.0)
[2023-09-16 22:11] LABS: ALT 37 U/L (4-34); AST 34 U/L (14-36); African American GFR (CKD) >90 (>60 ml/min/1.73 sqM); Albumin 4.5 g/dL (3.5-5.0); Alkaline Phosphatase 77 U/L (38-126); Amylase 63 U/L (30-110); Anion Gap 14 mmol/L; Blood Urea Nitrogen 11 mg/dL (7-17); Calcium 9.9 mg/dL (8.4-10.2); Carbon Dioxide 23 mmol/L (22-30); Chloride 102 mmol/L (98-107); Glucose 91 mg/dL (74-99); Lipase 117 U/L (23-300); Non-African American GFR(CKD) >90 (>60 ml/min/1.73 sqM); Sodium 139 mmol/L (137-145); Total Bilirubin 0.3 mg/dL (0.2-1.3)
[2023-09-16 23:10] LABS: Basophils # (A) 0.1 k/uL (0-0.2); Basophils % (A) 1 %; Eosinophils # (A) 0.2 k/uL (0-0.7); Eosinophils % (A) 2 %; HCT 33.3 % (34.0-46.0); HGB 10.6 gm/dL (11.4-16.0); Hypochromasia Moderate; Lymphocytes # (A) 3.4 k/uL (1.0-4.8); Lymphocytes % (A) 32 %; MCH 22.7 pg (25.0-35.0); MCHC 31.8 g/dL (31.0-37.0); MCV 71.4 fL (80.0-100.0); Mean Platelet Volume 8.2; Microcytosis Moderate; Monocytes # (A) 0.6 k/uL (0-1.0); Monocytes % (A) 6 %; Neutrophils # (A) 6.2 k/uL (1.3-7.7); Neutrophils % (A) 58 %; Platelet Count 397 k/uL (150-450); RBC 4.66 m/uL (3.80-5.40); RDW 15.6 % (11.5-15.5); WBC 10.7 k/uL (3.8-10.6)
[2023-09-16] MEDS ORDERED: ONDANSETRON 4 MG/2 ML VIAL IVP STA (23:40)
[2023-09-16] MEDS ORDERED: MORPHINE SULFATE 4 MG/ML SYRINGE IVP STA (23:40)
--- NOTE | 2023-09-17 04:24 | CT ---
EXAM: CT Abdomen and Pelvis With Intravenous Contrast CLINICAL HISTORY: pain TECHNIQUE: Axial computed tomography images of the abdomen and pelvis with intravenous contrast. CTDI is 29.7 mGy and DLP is 1520.3 mGy-cm. This CT exam was performed using one or more of the following dose reduction techniques: automated exposure control, adjustment of the mA and/or kV according to patient size, and/or use of iterative reconstruction technique. COMPARISON: CT abdomen and pelvis with contrast dated 07/04/2021 FINDINGS: Lung bases: Unremarkable. No mass. No consolidation. ABDOMEN: Liver: Unremarkable. No mass. Gallbladder and bile ducts: Stable cholecystectomy. Hepatic steatosis appears less prominent from the previous examination. Pancreas: Unremarkable. No mass. No ductal dilation. Spleen: Unremarkable. No splenomegaly. Adrenals: Unremarkable. No mass. Kidneys and ureters: The kidneys demonstrate normal enhancement without hydronephrosis or obstructive nephrolithiasis. Stomach and bowel: No evidence for bowel obstruction. No definite focal bowel mucosal asymmetry, accounting for respiratory artifact. Mild stool burden. No diverticulitis. PELVIS: Appendix: A normal caliber appendix is noted in the retrocecal region. Bladder: Unremarkable. No mass. Reproductive: Unremarkable as visualized. ABDOMEN and PELVIS: Intraperitoneal space: Unremarkable. No free air. No significant fluid collection. Bones/joints: No acute fracture. No dislocation. Soft tissues: Stable postsurgical changes suggested involving the right inguinal region. The overlying soft tissues demonstrate no significant alteration. No hernia. Vasculature: Unremarkable. No abdominal aortic aneurysm. Lymph nodes: Unremarkable. No enlarged lymph nodes. IMPRESSION: No evidence for bowel obstruction. No definite focal bowel mucosal asymmetry, accounting for respiratory artifact. Mild stool burden. No diverticulitis. No free intraperitoneal fluid or pneumoperitoneum. Incidental normal caliber appendix. No significant alteration from the previous examination.
[2023-09-17] MEDS ORDERED: MAG HYDROX/AL HYDROX/SIMETH 30 ML, HYOSCYAMINE ELIXIR 10 ML, LIDOCAINE VISCOUS 2% 10 ML PO STA ×3 (05:09)
[2023-09-17 07:04] VITALS: BP 115/62; PULSE 74; RESP 18; TEMP 98
== END 2023-09-17 07:50 | disposition home or self-care (01) ==
LOC: EC 17:20
DX: R10.9 Unspecified abdominal pain (principal); E07.9 Disorder of thyroid, unspecified; Z86.59 Personal history of other mental and behavioral disorders; Z79.890 Hormone replacement therapy
CPT/HCPCS: 36415; 80053; 82150; 83690; 85025; 81003; 81025; 74177; 99285; 96374; J2405; Q9967

== ENCOUNTER 2023-09-23 08:36 | Emergency (ER) | payer OTHER ==
--- NOTE | 2023-09-23 08:57 | ED ---
Dizziness HPI - General Chief Complaint: Dizziness Stated Complaint: memory loss Time Seen by Provider: 09/23/23 08:39 Source: patient, RN notes reviewed Mode of arrival: ambulatory Limitations: no limitations - History of Present Illness Initial Comments: This is a 37-year-old female who presents to the emergency department for headaches, dizziness, and memory loss. States that the symptoms have been progressive over the last week. The dizziness is worse with movement and turning her head. States that this may be a room spinning sensation. Denies any history of similar problems in the past. She followed up with [facility] regarding an MRI, and they have not scheduled it yet, which she believes is due to insurance issues. She is hoping that she can have the MRI done in the emergency department. Denies any chest pain, shortness of breath, or visual changes. She reports nausea but no vomiting. MD Complaint: dizziness - Related Data Home Medications Medication Instructions Recorded Confirmed norgestimate-ethinyl estradioL 1 tab PO HS 11/02/17 09/23/23 [Sprintec 28 Day Tablet] Levothyroxine Sodium [Synthroid] 50 mcg PO DAILY 06/17/18 09/23/23 Previous Rx's Medication Instructions Recorded Meclizine [Antivert] 25 mg PO QID PRN #20 tab 09/23/23 Metoclopramide [Reglan] 10 mg PO Q6H PRN #20 tab 09/23/23 Scopolamine [Scopolamine 1 MG/72 1 patch TRANSDERM Q72H PRN #4 patch 09/23/23 HR patch] Allergies Allergy/AdvReac Type Severity Reaction Status Date / Time No Known Allergies Allergy Verified 09/23/23 10:40 Review of Systems ROS Statement: Those systems with pertinent positive or pertinent negative responses have been documented in the HPI. ROS Other: All systems not noted in ROS Statement are negative. 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 History of Any Multi-Drug Resistant Organisms: MRSA Date of last positivie culture/infection: 08/2011 MDRO Source:: right thigh Past Surgical History: Adenoidectomy, Section, Hernia Repair, Tonsillectomy Additional Past Surgical History / Comment(s): d and C, removal of endometrioma Past Anesthesia/Blood Transfusion Reactions: No Reported Reaction Past Psychological History: Anxiety, Depression Smoking Status: Never smoker Past Alcohol Use History: Occasional Past Drug Use History: None Reported - Past Family History Son(s) Additional Family Medical History / Comment(s): autism Grandmother Family Medical History: Blood Disorder, Congestive Heart Failure (CHF), Diabetes Mellitus, Hyperlipidemia General Exam Limitations: no limitations General appearance: alert, anxious Head exam: Present: atraumatic, normocephalic, normal inspection Eye exam: Present: normal appearance, PERRL, EOMI. Absent: scleral icterus, conjunctival injection, periorbital swelling Respiratory exam: Present: normal lung sounds bilaterally. Absent: respiratory distress, wheezes, rales, rhonchi, stridor Cardiovascular Exam: Present: regular rate, normal rhythm, normal heart sounds. Absent: systolic murmur, diastolic murmur, rubs, gallop, clicks Neurological exam: Present: alert, oriented X3, CN II-XII intact, other (Negative HINTS exam) Psychiatric exam: Present: normal affect, normal mood Skin exam: Present: warm, dry, intact, normal color. Absent: rash Course Vital Signs 09/23/23 09/23/23 09/23/23 08:37 11:07 12:25 Temperature 98.3 F 97.9 F Pulse Rate 77 63 71 Respiratory 18 18 20 Rate Blood Pressure 118/87 114/80 119/45 O2 Sat by Pulse 100 100 100 Oximetry 09/23/23 14:25 Temperature 98.0 F Pulse Rate 74 Respiratory 18 Rate Blood Pressure 115/77 O2 Sat by Pulse 99 Oximetry Medical Decision Making - Medical Decision Making This is a 37-year-old female who presents to the emergency department for dizziness and memory loss. Was pt. sent in by a medical professional or institution? @ -No Did you speak to anyone other than the patient for history? @ -No Did you review nursing and triage notes? @ -Yes, and I agree, it is accurate with regards to the patient's symptoms. Were old charts reviewed? @ -No Differential Diagnosis? @ -Differential Dizziness: Benign paroxysmal positional Vertigo, Menieres disease, otitis media, acoustic neuroma, vertebrobasilar insufficiency, cerebellar stroke, encephalitis, hypovolemic, arrhythmia, coronary artery syndrome, anemia, this is not meant to be an all-inclusive list EKG interpreted by me (3pts min.)? @ -EKG interpreted by me demonstrating the following: Sinus rhythm. Ventricular rate 75 beats per minute, MO interval 118 ms, QRS duration 88 ms, QTC 395 ms. X-rays interpreted by me (1pt min.)? @ -Not obtained CT interpreted by me (1pt min.)? @ -Computed tomography scan of the brain obtained. My interpretation identifies no evidence of an acute intracranial hemorrhage or mass effect. U/S interpreted by me (1pt. min.)? @ -Not obtained What testing was considered but not performed? (CT, X-rays, U/S, labs)? Why? @ -None What meds were considered but not given? Why? @ -None Did you discuss the management of the patient with other professionals? @ -Yes, case management, who made the patient an appointment with her neurolo gist in 2 weeks. Did you reconcile home meds? @ -No Was smoking cessation discussed for >3mins.? @ -No Was critical care preformed (if so, how long)? @ -No Were there social determinants of health that impacted care today? How? (Homelessness, low income, unemployed, alcoholism, drug addiction, transportation, low edu. Level, literacy, decrease access to med. care, intermediate, rehab)? @ -No Was there de-escalation of care discussed even if they declined? (Discuss DNR or withdrawal of care, Hospice)? @ -No What co-morbidities impacted this encounter? (DM, HTN, Smoking, COPD, CAD, Cancer, CVA, Hep., AIDS, mental health diagnosis, sleep apnea, morbid obesity)? @ -Thyroid disorder Was patient admitted / discharged? @ -Discharged. Lab work obtained revealing a very minor elevation in liver enzymes, which have been present on prior labs. Urinalysis negative for signs of infection. Heterophile negative. Computed tomography scan of the brain obtained revealing no acute process. Discussed with the patient that her symptoms are suggestive of possible vertigo based on the dizziness that gets worse with movement and turning her head as well as associated nausea. Patient was requesting an MRI, and I advised that these cannot be done in the emergency department and she does not meet admission criteria to have this done on a faste r basis. Case management was able to get her an appointment with her neurologist for 2 weeks from today for further evaluation. Advised she continue to contact them regarding the status of her MRI order. She was given prescriptions for Antivert, Reglan, and scopolamine patches for further managem ent of her symptoms. She was otherwise discharged home in stable condition. Undiagnosed new problem with uncertain prognosis? @ -None Drug Therapy requiring intensive monitoring for toxicity (Heparin, Nitro, Insulin, Cardizem)? @ -None Were any procedures done? @ -None Diagnosis/symptom? @ -Dizziness, BPPV, memory problems Acute, or Chronic, or Acute on Chronic? @ -Acute Uncomplicated (without systemic symptoms) or Complicated (systemic symptoms)? @ -Uncomplicated Side effects of treatment? @ -None Exacerbation, Progression, or Severe Exacerbation] @ -Not applicable Poses a threat to life or bodily function? @ -Unlikely Return precautions reviewed in depth, the patient is instructed to return to the emergency department with any new, worsening, or concerning symptoms. Patient verbalized understanding. This case was discussed in detail with the attending ED physician, Dr. Diaz. Presentation, findings, and treatment plan discussed in detail as well. - Lab Data Result diagrams: 09/23/23 08:56 09/23/23 08:56 Lab Results 09/23/23 09/23/23 09/23/23 Range/Units 08:56 08:56 08:56 WBC 6.8 (3.8-10.6) k/uL RBC 4.79 (3.80-5.40) m/uL Hgb 10.8 L (11.4-16.0) gm/dL Hct 34.1 (34.0-46.0) % MCV 71.1 L (80.0-100.0) fL MCH 22.4 L (25.0-35.0) pg MCHC 31.6 (31.0-37.0) g/dL RDW 15.2 (11.5-15.5) % Plt Count 402 (150-450) k/uL MPV 7.9 Neutrophils % 62 % Lymphocytes % 27 % Monocytes % 7 % Eosinophils % 2 % Basophils % 1 % Neutrophils # 4.2 (1.3-7.7) k/uL Lymphocytes # 1.8 (1.0-4.8) k/uL Monocytes # 0.5 (0-1.0) k/uL Eosinophils # 0.1 (0-0.7) k/uL Basophils # 0.1 (0-0.2) k/uL Hypochromasia Moderate Microcytosis Moderate Sodium (137-145) mmol/L Potassium (3.5-5.1) mmol/L Chloride (98-107) mmol/L Carbon Dioxide (22-30) mmol/L Anion Gap mmol/L BUN (7-17) mg/dL Creatinine (0.52-1.04) mg/dL Est GFR (CKD-EPI)AfAm (>60 ml/min/1.73 sqM) Est GFR (CKD-EPI)NonAf (>60 ml/min/1.73 sqM) Glucose (74-99) mg/dL Calcium (8.4-10.2) mg/dL Total Bilirubin (0.2-1.3) mg/dL AST (14-36) U/L ALT (4-34) U/L Alkaline Phosphatase (38-126) U/L Total Protein (6.3-8.2) g/dL Albumin (3.5-5.0) g/dL Vitamin B12 (200.0-944.0) pg/mL TSH (0.465-4.680) mIU/L Urine Color Yellow Urine Appearance Clear (Clear) Urine pH 5.5 (5.0-8.0) Ur Specific [place] 1.025 (1.001-1.035) Urine Protein Trace H (Negative) Urine Glucose (UA) Negative (Negative) Urine Ketones Trace H (Negative) Urine Blood Trace H (Negative) Urine Nitrite Negative (Negative) Urine Bilirubin Negative (Negative) Urine Urobilinogen <2.0 (<2.0) mg/dL Ur Leukocyte Esterase Negative (Negative) Urine RBC 1 (0-5) /hpf Urine WBC 1 (0-5) /hpf Ur Squamous Epith Cells 1 (0-4) /hpf Urine Mucus Moderate H (None) /hpf Urine HCG, Qual Not Detected (Not Detectd) Urine Opiates Screen Not Detected (NotDetected) Ur Oxycodone Screen Not Detected (NotDetected) Urine Methadone Screen Not Detected (NotDetected) Ur Propoxyphene Screen Not Detected (NotDetected) Ur Barbiturates Screen Not Detected (NotDetected) U Tricyclic Antidepress Not Detected (NotDetected) Ur Phencyclidine Scrn Not Detected (NotDetected) Ur Amphetamines Screen Not Detected (NotDetected) U Methamphetamines Scrn Not Detected (NotDetected) U Benzodiazepines Scrn Not Detected (NotDetected) Urine Cocaine Screen Not Detected (NotDetected) U Marijuana (THC) Screen Not Detected (NotDetected) Heterophile Antibody (Negative) 09/23/23 09/23/23 Range/Units 08:56 08:56 WBC (3.8-10.6) k/uL RBC (3.80-5.40) m/uL Hgb (11.4-16.0) gm/dL Hct (34.0-46.0) % MCV (80.0-100.0) fL MCH (25.0-35.0) pg MCHC (31.0-37.0) g/dL RDW (11.5-15.5) % Plt Count (150-450) k/uL MPV Neutrophils % % Lymphocytes % % Monocytes % % Eosinophils % % Basophils % % Neutrophils # (1.3-7.7) k/uL Lymphocytes # (1.0-4.8) k/uL Monocytes # (0-1.0) k/uL Eosinophils # (0-0.7) k/uL Basophils # (0-0.2) k/uL Hypochromasia Microcytosis Sodium 139 (137-145) mmol/L Potassium 4.3 (3.5-5.1) mmol/L Chloride 104 (98-107) mmol/L Carbon Dioxide 20 L (22-30) mmol/L Anion Gap 15 mmol/L BUN 10 (7-17) mg/dL Creatinine 0.62 (0.52-1.04) mg/dL Est GFR (CKD-EPI)AfAm >90 (>60 ml/min/1.73 sqM) Est GFR (CKD-EPI)NonAf >90 (>60 ml/min/1.73 sqM) Glucose 108 H (74-99) mg/dL Calcium 9.9 (8.4-10.2) mg/dL Total Bilirubin 0.6 (0.2-1.3) mg/dL AST 65 H (14-36) U/L ALT 58 H (4-34) U/L Alkaline Phosphatase 62 (38-126) U/L Total Protein 8.2 (6.3-8.2) g/dL Albumin 4.4 (3.5-5.0) g/dL Vitamin B12 645.0 (200.0-944.0) pg/mL TSH 3.070 (0.465-4.680) mIU/L Urine Color Urine Appearance (Clear) Urine pH (5.0-8.0) Ur Specific [place] (1.001-1.035) Urine Protein (Negative) Urine Glucose (UA) (Negative) Urine Ketones (Negative) Urine Blood (Negative) Urine Nitrite (Negative) Urine Bilirubin (Negative) Urine Urobilinogen (<2.0) mg/dL Ur Leukocyte Esterase (Negative) Urine RBC (0-5) /hpf Urine WBC (0-5) /hpf Ur Squamous Epith Cells (0-4) /hpf Urine Mucus (None) /hpf Urine HCG, Qual (Not Detectd) Urine Opiates Screen (NotDetected) Ur Oxycodone Screen (NotDetected) Urine Methadone Screen (NotDetected) Ur Propoxyphene Screen (NotDetected) Ur Barbiturates Screen (NotDetected) U Tricyclic Antidepress (NotDetected) Ur Phencyclidine Scrn (NotDetected) Ur Amphetamines Screen (NotDetected) U Methamphetamines Scrn (NotDetected) U Benzodiazepines Scrn (NotDetected) Urine Cocaine Screen (NotDetected) U Marijuana (THC) Screen (NotDetected) Heterophile Antibody Negative (Negative) - Radiology Data Radiology results: report reviewed, image reviewed Disposition Clinical Impression: Dizziness, Memory changes Disposition: HOME SELF-CARE Instructions (If sedation given, give patient instructions): Vertigo (ED), Benign Paroxysmal Positional Vertigo (ED), Dizziness (ED) Additional Instructions: Return to the emergency department with any new, worsening, or concerning symptoms. You can take the Antivert up to 4 times daily for feelings of dizziness. The Reglan can be taken up to every 6 hours for dizziness or nausea/vomiting. You can also apply the scopolamine patches for the dizziness. Dr. Montgomery will see you on 10/07 for further evaluation and discussion of the MRI, however the hospital cannot get this approved sooner. Prescriptions: Meclizine [Antivert] 25 mg PO QID PRN #20 tab PRN Reason: Vertigo Metoclopramide [Reglan] 10 mg PO Q6H PRN #20 tab PRN Reason: Nausea And Vomiting Scopolamine [Scopolamine 1 MG/72 HR patch] 1 patch TRANSDERM Q72H PRN #4 patch PRN Reason: Vertigo Is patient prescribed a controlled substance at d/c from ED?: No Referrals: Cherelle Montgomery MD [Medical Doctor] - 10/07/23 9:00 am (MRI authorization through insurance has been started and when it is obtained you will be contacted for an appointment. Any questions pleae contact office. ) Xavier Gomez DO [Primary Care Provider] - 1-2 days
[2023-09-23 09:20] LABS: Basophils # (A) 0.1 k/uL (0-0.2); Basophils % (A) 1 %; Eosinophils # (A) 0.1 k/uL (0-0.7); Eosinophils % (A) 2 %; HCT 34.1 % (34.0-46.0); HGB 10.8 gm/dL (11.4-16.0); Hypochromasia Moderate; Lymphocytes # (A) 1.8 k/uL (1.0-4.8); Lymphocytes % (A) 27 %; MCH 22.4 pg (25.0-35.0); MCHC 31.6 g/dL (31.0-37.0); MCV 71.1 fL (80.0-100.0); Mean Platelet Volume 7.9; Microcytosis Moderate; Monocytes # (A) 0.5 k/uL (0-1.0); Monocytes % (A) 7 %; Neutrophils # (A) 4.2 k/uL (1.3-7.7); Neutrophils % (A) 62 %; Platelet Count 402 k/uL (150-450); RBC 4.79 m/uL (3.80-5.40); RDW 15.2 % (11.5-15.5); WBC 6.8 k/uL (3.8-10.6)
[2023-09-23 09:32] LABS: ALT 58 U/L (4-34); African American GFR (CKD) >90 (>60 ml/min/1.73 sqM); Albumin 4.4 g/dL (3.5-5.0); Anion Gap 15 mmol/L; Blood Urea Nitrogen 10 mg/dL (7-17); Calcium 9.9 mg/dL (8.4-10.2); Carbon Dioxide 20 mmol/L (22-30); Chloride 104 mmol/L (98-107); Glucose 108 mg/dL (74-99); Non-African American GFR(CKD) >90 (>60 ml/min/1.73 sqM); Sodium 139 mmol/L (137-145); Total Bilirubin 0.6 mg/dL (0.2-1.3); Total Protein 8.2 g/dL (6.3-8.2)
[2023-09-23 09:41] LABS: AST 65 U/L (14-36); Alkaline Phosphatase 62 U/L (38-126); Potassium 4.3 mmol/L (3.5-5.1)
[2023-09-23 09:50] LABS: Appearance,Urine Clear (Clear); Bilirubin,Urine Negative (Negative); Blood,Urine Trace (Negative); Color,Urine Yellow; Glucose,Urine (UA) Negative (Negative); Ketones,Urine Trace (Negative); Leukocyte Esterase,Urine Negative (Negative); Mucus,Urine Moderate /hpf; Nitrite,Urine Negative (Negative); PH, Urine 5.5 (5.0-8.0); Protein,Urine Trace (Negative); RBC,Urine 1 /hpf (0-5); Specific Gravity,Urine 1.025 (1.001-1.035); Squamous Epithelial Cell,Urine 1 /hpf (0-4); Urobilinogen,Urine <2.0 mg/dL (<2.0); WBC,Urine 1 /hpf (0-5)
[2023-09-23 10:00] LABS: Amphetamine Screen,Urine Not Detected (NotDetected); Barbiturate Screen,Urine Not Detected (NotDetected); Benzodiazepines Screen,Urine Not Detected (NotDetected); Cocaine Screen,Urine Not Detected (NotDetected); Methadone Screen, Urine Not Detected (NotDetected); Opiate Screen,Urine Not Detected (NotDetected); Oxycodone Screen, Urine Not Detected (NotDetected); Phencyclidine Screen,Urine Not Detected (NotDetected); Tricyclic Antidepressant,Urine Not Detected (NotDetected); Urn Cannabinoid Scrn Not Detected (NotDetected)
--- NOTE | 2023-09-23 10:09 | CT ---
EXAMINATION TYPE: CT brain wo con DATE OF EXAM: 09/23/2023 COMPARISON: None HISTORY: 37-year-old female Dizziness, memory loss TECHNIQUE: Examination was done in axial plane without intravenous contrast. Coronal and sagittal r econstructions performed. CT DLP: 1095.4 mGycm Automated exposure control for dose reduction was used. FINDINGS: There is no evidence of acute intracranial hemorrhage, acute ischemic changes, mass, mass-effect, or extra-axial fluid collection. There is no effacement of cerebral sulci or basal subarachnoid cister ns. There is no hydrocephalus. There is no midline shift. Espitia-white matter distinction is preserv ed. Small mucosal retention cysts floor of the right maxillary sinus measuring up to 1.1 cm. Mastoid air cells are pneumatized. Orbits and globes are intact. IMPRESSION: No acute intracranial abnormality seen.
[2023-09-23] MEDS ORDERED: ONDANSETRON 4 MG/2 ML VIAL IVP STA (10:26)
[2023-09-23] MEDS ORDERED: MECLIZINE 12.5 MG TAB PO STA (10:26)
[2023-09-23] MEDS ORDERED: DEXAMETHASONE SOD PHOSPHATE 10 MG/ML 1 ML VIAL IVP STA (10:26)
[2023-09-23] MEDS ORDERED: SODIUM CHLORIDE 0.9% 1,000 ML IV STA (10:33)
[2023-09-23] MEDS ORDERED: ONDANSETRON 4 MG ODT STARTER PACK 2 TAB BTL PO STA (13:47)
[2023-09-23 14:43] VITALS: BP 115/77; PULSE 74; RESP 18; TEMP 98
== END 2023-09-23 14:36 | disposition home or self-care (01) ==
LOC: EC 08:36
DX: R41.3 Other amnesia (principal); H81.10 Benign paroxysmal vertigo, unspecified ear; E07.9 Disorder of thyroid, unspecified; F41.9 Anxiety disorder, unspecified; F32.A Depression, unspecified; Z79.890 Hormone replacement therapy; Z79.899 Other long term (current) drug therapy
CPT/HCPCS: 99284 ×2; 96374 ×2; 96375 ×2; 96361 ×2; 36415; 93005; 80053; 84443; 82607; 85025; 86308; 81001; 81025; 80306; 70450; J1100; J2405; S0119

== ENCOUNTER 2023-09-25 14:03 | Emergency (ER) | payer OTHER ==
[2023-09-25 14:28] VITALS: RESP 18; TEMP 98.1
[2023-09-25] MEDS ORDERED: PANTOPRAZOLE 40 MG/10 ML VIAL IVP STA (14:39)
[2023-09-25 15:23] LABS: Basophils # (A) 0.1 k/uL (0-0.2); Basophils % (A) 1 %; Eosinophils # (A) 0.2 k/uL (0-0.7); Eosinophils % (A) 2 %; HCT 34.6 % (34.0-46.0); Hypochromasia Moderate; Lymphocytes % (A) 32 %; MCH 22.6 pg (25.0-35.0); MCHC 31.9 g/dL (31.0-37.0); MCV 70.9 fL (80.0-100.0); Mean Platelet Volume 7.6; Microcytosis Moderate; Monocytes # (A) 0.7 k/uL (0-1.0); Monocytes % (A) 7 %; Neutrophils # (A) 5.4 k/uL (1.3-7.7); Neutrophils % (A) 57 %; Platelet Count 436 k/uL (150-450); RBC 4.88 m/uL (3.80-5.40); RDW 15.6 % (11.5-15.5); WBC 9.5 k/uL (3.8-10.6)
[2023-09-25 15:29] LABS: Partial Thromboplastin Time 25.9 sec (22.0-30.0)
[2023-09-25 15:34] LABS: ALT 51 U/L (4-34); AST 46 U/L (14-36); African American GFR (CKD) >90 (>60 ml/min/1.73 sqM); Albumin 4.5 g/dL (3.5-5.0); Alkaline Phosphatase 69 U/L (38-126); Anion Gap 12 mmol/L; Blood Urea Nitrogen 14 mg/dL (7-17); Calcium 9.9 mg/dL (8.4-10.2); Carbon Dioxide 23 mmol/L (22-30); Chloride 104 mmol/L (98-107); Glucose 90 mg/dL (74-99); Lipase 162 U/L (23-300); Magnesium 1.8 mg/dL (1.6-2.3); Non-African American GFR(CKD) >90 (>60 ml/min/1.73 sqM); Potassium 4.2 mmol/L (3.5-5.1); Sodium 139 mmol/L (137-145); Total Bilirubin 0.3 mg/dL (0.2-1.3); Total Protein 8.1 g/dL (6.3-8.2)
[2023-09-25] MEDS ORDERED: SODIUM CHLORIDE 0.9% 1,000 ML IV STA (15:37)
[2023-09-25] MEDS ORDERED: diphenhydrAMINE 50 MG/ML 1 ML VIAL IVP STA (15:37)
[2023-09-25] MEDS ORDERED: METOCLOPRAMIDE 5 MG/ML 2 ML VIAL IVP STA (15:37)
[2023-09-25 16:07] LABS: Appearance,Urine Clear (Clear); Bilirubin,Urine Negative (Negative); Blood,Urine Negative (Negative); Color,Urine Yellow; Glucose,Urine (UA) Negative (Negative); Ketones,Urine Negative (Negative); Leukocyte Esterase,Urine Negative (Negative); Nitrite,Urine Negative (Negative); PH, Urine 5.5 (5.0-8.0); Protein,Urine Trace (Negative); Specific Gravity,Urine 1.033 (1.001-1.035); Urobilinogen,Urine <2.0 mg/dL (<2.0)
--- NOTE | 2023-09-25 16:57 | ED ---
General Adult HPI - General Chief complaint: GI Bleed Stated complaint: sob,abdominal pain Time Seen by Provider: 09/25/23 14:37 Source: patient, RN notes reviewed, old records reviewed Mode of arrival: ambulatory Limitations: no limitations - History of Present Illness Initial comments: Patient is a 37-year-old female with past medical history remarkable for splenomegaly, thyroid disease, endometriosis presents to Department complaining of blood per rectum. Patient is also having left lower quadrant abdominal discomfort. Abdominal pain has been ongoing for multiple weeks which is how they discovered she had splenomegaly. She was here a few days ago and was feeling lightheaded. That is since improved over is now having rectal bleeding with muc ousy discharge. There is been ongoing for 1-2 days. Also endorsing left-sided abdominal pain. Denies chest pain, shortness of breath, difficulty breathing. Denies any fevers or chills. Has no urinary complaints. States she is not . His no other acute complaints at this time. She Presents for further evaluation at this time. - Related Data Home Medications Medication Instructions Recorded Confirmed norgestimate-ethinyl estradioL 1 tab PO HS 11/02/17 09/25/23 [Sprintec 28 Day Tablet] Levothyroxine Sodium [Synthroid] 50 mcg PO DAILY 06/17/18 09/25/23 Previous Rx's Medication Instructions Recorded Dicyclomine [Bentyl] 10 mg PO TID PRN 7 Days #21 capsule 09/25/23 Allergies Allergy/AdvReac Type Severity Reaction Status Date / Time No Known Allergies Allergy Verified 09/25/23 15:14 Review of Systems ROS Statement: Those systems with pertinent positive or pertinent negative responses have been documented in the HPI. Review of Systems: CONST: Denies fever EYES: Denies blurry vision ENT: Denies nasal congestion C/V: Denies Chest pain RESP: Denies shortness of breath GI: Endorses abdominal pain : Denies dysuria SKIN: Denies rash. MSK: Denies joint pain. NEURO: Denies headache ROS Other: All systems not noted in ROS Statement are negative. 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 History of Any Multi-Drug Resistant Organisms: MRSA Date of last positivie culture/infection: 08/2011 MDRO Source:: right thigh Past Surgical History: Adenoidectomy, Section, Hernia Repair, Tonsillectomy Additional Past Surgical History / Comment(s): d and C, removal of endometrioma Past Anesthesia/Blood Transfusion Reactions: No Reported Reaction Past Psychological History: Anxiety, Depression Smoking Status: Never smoker Past Alcohol Use History: Occasional Past Drug Use History: None Reported - Past Family History Son(s) Additional Family Medical History / Comment(s): autism Grandmother Family Medical History: Blood Disorder, Congestive Heart Failure (CHF), Diabetes Mellitus, Hyperlipidemia General Exam - General Exam Comments Initial Comments: General: Appears in no acute distress. HEAD: Normal with no signs of head trauma. EYES: PERRLA, EOMI, conjunctiva normal, no discharge. ENT: Hearing grossly intact, normal oropharynx. RESPIRATORY: Clear breath sounds bilaterally. No wheezes, rales, or rhonchi. C/V: Regular rate and rhythm. S1 and S2 auscultated, no edema, peripheral pulses 2+ and intact throughout ABD: Abdomen is soft, nondistended. Left-sided abdominal discomfort. No guarding. No rebound tenderness. No peritoneal signs. EXT: Normal range of motion, no obvious deformity SKIN: No rashes or lesions observed on exposed skin. NEURO: Alert and oriented x 4. Cranial nerves II-XII intact. No focal sensory or strength deficits. Limitations: no limitations Course Vital Signs 09/25/23 09/25/23 09/25/23 14:18 15:23 16:07 Temperature 98.1 F Pulse Rate 77 68 66 Respiratory 18 18 18 Rate Blood Pressure 114/84 118/59 117/65 O2 Sat by Pulse 99 96 100 Oximetry 09/25/23 17:49 Temperature Pulse Rate 60 Respiratory 18 Rate Blood Pressure 122/64 O2 Sat by Pulse 98 Oximetry Medical Decision Making - Medical Decision Making Was pt. sent in by a medical professional or institution (, PA, INTERNATIONAL EXCHANGE COORDINATOR, urgent care, hospital, or retirement...) When possible be specific @ -No Did you speak to anyone other than the patient for history (EMS, parent, family, police, friend...)? What history was obtained from this source @ -No Did you review nursing and triage notes (agree or disagree)? Why? @ -I reviewed and agree with nursing and triage notes Were old charts reviewed (outside hosp., previous admission, EMS record, old EKG, old radiological studies, urgent care reports/EKG's, retirement records)? Report findings @ -Old charts reviewed Differential Diagnosis (chest pain, altered mental status, abdominal pain women, abdominal pain men, vaginal bleeding, weakness, fever, dyspnea, syncope, headache, dizziness, GI bleed, back pain, seizure, CVA, palpatations, mental health, musculoskeletal)? @ -Differential Abdominal Pain Women: Appendicitis, Cholecystitis, diverticulosis, ischemic bowel, pancreatitis, hepatitis, UTI, gastroenteritis, AAA, incarcerated hernia, bowel obstruction, constipation, inflammatory bowel, hepatitis, peptic ulcer disease, splenic infarction, perforated viscus, vulvitis, ovarian torsion, PID, kidney stone, placenta abruption, this is not meant to be an all-inclusive list EKG interpreted by me (3pts min.). @ -None done X-rays interpreted by me (1pt min.). @ -None done CT interpreted by me (1pt min.). @ -CT imaging negative for any obvious acute intra-abdominal process. Spleen appears within acceptable limits. U/S interpreted by me (1pt. min.). @ -None done What testing was considered but not performed or refused? (CT, X-rays, U/S, labs)? Why? @ -None What meds were considered but not given or refused? Why? @ -None Did you discuss the management of the patient with other professionals (orlando townsend i.e. , PA, INTERNATIONAL EXCHANGE COORDINATOR, lab, RT, psych nurse, rn social work, county adviser, teacher, deputy juvenile officer, case packer and sealer)? Give summary @ -No Was smoking cessation discussed for >3mins.? @ -No Was critical care preformed (if so, how long)? @ -No Were there social determinants of health that impacted care today? How? (Homelessness, low income, unemployed, alcoholism, drug addiction, transportation, low edu. Level, literacy, decrease access to med. care, nursing home, rehab)? @ -No Was there de-escalation of care discussed even if they declined (Discuss DNR or withdrawal of care, Hospice)? DNR status @ -No What co-morbidities impacted this encounter? (DM, HTN, Smoking, COPD, CAD, Cancer, CVA, ARF, Chemo, Hep., AIDS, mental health diagnosis, sleep apnea, morbid obesity)? @ -None Was patient admitted / discharged? Hospital course, mention meds given and route, prescriptions, significant lab abnormalities, going to OR and other pertinent info. @ -Based on the patient's presentation and physical exam, presents with mucousy stool with some bright red blood per rectum as well as abdominal pain. He presents for further evaluation at this time. Vital signs within acceptable limits. Is not on blood thinners. Patiently symptomatic they treated with IV fluids, Reglan, Benadryl, Protonix. We'll obtain CT imaging. Patient was in agreement this plan. Patient's laboratory studies are unremarkable. Hemoglobin is at baseline for the patient. Occult blood is positive for the patient. No gross blood on exam as discussed. CT imaging negative for any obvious intra-abdominal process. I discussed results of the patient. She expressed understanding. Strict return precautions discussed. Recommend she obtain a colonoscopy. She was in agreement this plan.Discussed with the patient that she may be having some rectal bleeding does not appear to be serious at this time. Strict return precautions discussed patches nontender is. Hemoglobin within normal limits. CT imaging negative. She was in agreement this plan. I will provide the patient with a prescription for Bentyl, ODSanchez Zofran. I instructed the patient to follow up with their PCP in the next 1-3 days. I explained that the patient should return to the emergency department if they experience any worsening symptoms. Strict return precautions were discussed with the patient. The patient expressed understanding of these instructions. I answered all questions that the patient had. The patient was discharged home in good condition with their prescriptions and follow up information. Undiagnosed new problem with uncertain prognosis? @ -No Drug Therapy requiring intensive monitoring for toxicity (Heparin, Nitro, Insulin, Cardizem)? @ -No Were any procedures done? @ -No Diagnosis/symptom? @ -Abdominal pain of unknown etiology, rectal bleeding Acute, or Chronic, or Acute on Chronic? @ -Acute Uncomplicated (without systemic symptoms) or Complicated (systemic symptoms)? @ -Complicated Side effects of treatment? @ -none Exacerbation, Progression, or Severe Exacerbation] @ -no Poses a threat to life or bodily function? @ -Unlikely - Lab Data Result diagrams: 09/25/23 14:58 09/25/23 14:58 Lab Results 09/25/23 09/25/23 09/25/23 Range/Units 14:58 14:58 14:58 WBC 9.5 (3.8-10.6) k/uL RBC 4.88 (3.80-5.40) m/uL Hgb 11.0 L (11.4-16.0) gm/dL Hct 34.6 (34.0-46.0) % MCV 70.9 L (80.0-100.0) fL MCH 22.6 L (25.0-35.0) pg MCHC 31.9 (31.0-37.0) g/dL RDW 15.6 H (11.5-15.5) % Plt Count 436 (150-450) k/uL MPV 7.6 Neutrophils % 57 % Lymphocytes % 32 % Monocytes % 7 % Eosinophils % 2 % Basophils % 1 % Neutrophils # 5.4 (1.3-7.7) k/uL Lymphocytes # 3.0 (1.0-4.8) k/uL Monocytes # 0.7 (0-1.0) k/uL Eosinophils # 0.2 (0-0.7) k/uL Basophils # 0.1 (0-0.2) k/uL Hypochromasia Moderate Microcytosis Moderate PT 11.0 (10.0-12.5) sec INR 1.0 (<1.2) APTT 25.9 (22.0-30.0) sec Sodium (137-145) mmol/L Potassium (3.5-5.1) mmol/L Chloride (98-107) mmol/L Carbon Dioxide (22-30) mmol/L Anion Gap mmol/L BUN (7-17) mg/dL Creatinine (0.52-1.04) mg/dL Est GFR (CKD-EPI)AfAm (>60 ml/min/1.73 sqM) Est GFR (CKD-EPI)NonAf (>60 ml/min/1.73 sqM) Glucose (74-99) mg/dL Plasma Lactic Acid Luis Alfredo (0.7-2.0) mmol/L Calcium (8.4-10.2) mg/dL Magnesium (1.6-2.3) mg/dL Total Bilirubin (0.2-1.3) mg/dL AST (14-36) U/L ALT (4-34) U/L Alkaline Phosphatase (38-126) U/L Total Protein (6.3-8.2) g/dL Albumin (3.5-5.0) g/dL Lipase (23-300) U/L Urine Color Urine Appearance (Clear) Urine pH (5.0-8.0) Ur Specific [place] (1.001-1.035) Urine Protein (Negative) Urine Glucose (UA) (Negative) Urine Ketones (Negative) Urine Blood (Negative) Urine Nitrite (Negative) Urine Bilirubin (Negative) Urine Urobilinogen (<2.0) mg/dL Ur Leukocyte Esterase (Negative) Stool Occult Blood Positive H (Negative) Blood Type Blood Type Confirm Blood Type Recheck Bld Type Recheck Status Antibody Screen Spec Expiration Date 09/25/23 09/25/23 09/25/23 Range/Units 14:58 14:58 14:59 WBC (3.8-10.6) k/uL RBC (3.80-5.40) m/uL Hgb (11.4-16.0) gm/dL Hct (34.0-46.0) % MCV (80.0-100.0) fL MCH (25.0-35.0) pg MCHC (31.0-37.0) g/dL RDW (11.5-15.5) % Plt Count (150-450) k/uL MPV Neutrophils % % Lymphocytes % % Monocytes % % Eosinophils % % Basophils % % Neutrophils # (1.3-7.7) k/uL Lymphocytes # (1.0-4.8) k/uL Monocytes # (0-1.0) k/uL Eosinophils # (0-0.7) k/uL Basophils # (0-0.2) k/uL Hypochromasia Microcytosis PT (10.0-12.5) sec INR (<1.2) APTT (22.0-30.0) sec Sodium 139 (137-145) mmol/L Potassium 4.2 (3.5-5.1) mmol/L Chloride 104 (98-107) mmol/L Carbon Dioxide 23 (22-30) mmol/L Anion Gap 12 mmol/L BUN 14 (7-17) mg/dL Creatinine 0.61 (0.52-1.04) mg/dL Est GFR (CKD-EPI)AfAm >90 (>60 ml/min/1.73 sqM) Est GFR (CKD-EPI)NonAf >90 (>60 ml/min/1.73 sqM) Glucose 90 (74-99) mg/dL Plasma Lactic Acid Luis Alfredo 1.6 (0.7-2.0) mmol/L Calcium 9.9 (8.4-10.2) mg/dL Magnesium 1.8 (1.6-2.3) mg/dL Total Bilirubin 0.3 (0.2-1.3) mg/dL AST 46 H (14-36) U/L ALT 51 H (4-34) U/L Alkaline Phosphatase 69 (38-126) U/L Total Protein 8.1 (6.3-8.2) g/dL Albumin 4.5 (3.5-5.0) g/dL Lipase 162 (23-300) U/L Urine Color Urine Appearance (Clear) Urine pH (5.0-8.0) Ur Specific [place] (1.001-1.035) Urine Protein (Negative) Urine Glucose (UA) (Negative) Urine Ketones (Negative) Urine Blood (Negative) Urine Nitrite (Negative) Urine Bilirubin (Negative) Urine Urobilinogen (<2.0) mg/dL Ur Leukocyte Esterase (Negative) Stool Occult Blood (Negative) Blood Type O Negative Blood Type Confirm Blood Type Recheck No Previous Record Bld Type Recheck Status CABO Indicated Antibody Screen NEGATIVE Spec Expiration Date 09/28/2023 - 235809/25/23 09/25/23 Range/Units 15:00 15:54 WBC (3.8-10.6) k/uL RBC (3.80-5.40) m/uL Hgb (11.4-16.0) gm/dL Hct (34.0-46.0) % MCV (80.0-100.0) fL MCH (25.0-35.0) pg MCHC (31.0-37.0) g/dL RDW (11.5-15.5) % Plt Count (150-450) k/uL MPV Neutrophils % % Lymphocytes % % Monocytes % % Eosinophils % % Basophils % % Neutrophils # (1.3-7.7) k/uL Lymphocytes # (1.0-4.8) k/uL Monocytes # (0-1.0) k/uL Eosinophils # (0-0.7) k/uL Basophils # (0-0.2) k/uL Hypochromasia Microcytosis PT (10.0-12.5) sec INR (<1.2) APTT (22.0-30.0) sec Sodium (137-145) mmol/L Potassium (3.5-5.1) mmol/L Chloride (98-107) mmol/L Carbon Dioxide (22-30) mmol/L Anion Gap mmol/L BUN (7-17) mg/dL Creatinine (0.52-1.04) mg/dL Est GFR (CKD-EPI)AfAm (>60 ml/min/1.73 sqM) Est GFR (CKD-EPI)NonAf (>60 ml/min/1.73 sqM) Glucose (74-99) mg/dL Plasma Lactic Acid Luis Alfredo (0.7-2.0) mmol/L Calcium (8.4-10.2) mg/dL Magnesium (1.6-2.3) mg/dL Total Bilirubin (0.2-1.3) mg/dL AST (14-36) U/L ALT (4-34) U/L Alkaline Phosphatase (38-126) U/L Total Protein (6.3-8.2) g/dL Albumin (3.5-5.0) g/dL Lipase (23-300) U/L Urine Color Yellow Urine Appearance Clear (Clear) Urine pH 5.5 (5.0-8.0) Ur Specific [place] 1.033 (1.001-1.035) Urine Protein Trace H (Negative) Urine Glucose (UA) Negative (Negative) Urine Ketones Negative (Negative) Urine Blood Negative (Negative) Urine Nitrite Negative (Negative) Urine Bilirubin Negative (Negative) Urine Urobilinogen <2.0 (<2.0) mg/dL Ur Leukocyte Esterase Negative (Negative) Stool Occult Blood (Negative) Blood Type Blood Type Confirm O Negative Blood Type Recheck Bld Type Recheck Status Antibody Screen Spec Expiration Date Disposition Clinical Impression: Rectal bleed, Abdominal pain of unknown etiology Disposition: HOME SELF-CARE Condition: Good Instructions (If sedation given, give patient instructions): Rectal Bleeding (ED), Abdominal Pain (ED) Prescriptions: Dicyclomine [Bentyl] 10 mg PO TID PRN 7 Days #21 capsule PRN Reason: Pain Is patient prescribed a controlled substance at d/c from ED?: No Referrals: Xavier Gomez DO [Primary Care Provider] - 1-2 days Time of Disposition: 18:20
[2023-09-25] MEDS ORDERED: MORPHINE SULFATE 4 MG/ML SYRINGE IVP STA (16:58)
--- NOTE | 2023-09-25 17:31 | CT ---
EXAMINATION TYPE: CT abdomen pelvis w con CT DLP: 1573.5 mGycm, Automated exposure control for dose reduction was used. DATE OF EXAM: 09/25/2023 4:33 PM COMPARISON: CT 09/17/2023 CLINICAL INDICATION:Female, 37 years old with history of llq pain; LLQ pain, rectal bleeding. Dizzine ss. TECHNIQUE: Axial CT of the abdomen and pelvis. Sagittal and coronal reformats were created on a [employer] workstation. Contrast used:100 ml mL of Isovue 300 with IV Contrast, (none if empty) Oral contrast used: without Oral Contrast (none if empty) FINDINGS: LOWER CHEST: Unremarkable ABDOMEN LIVER: Unremarkable GALLBLADDER AND BILE DUCTS: The gallbladder is surgically absent. No biliary dilatation PANCREAS: Unremarkable. SPLEEN: Unremarkable. ADRENAL GLANDS: Unremarkable. KIDNEYS AND URETERS: Kidneys enhance symmetrically. There is no evidence of hydronephrosis. PELVIS BLADDER: Unremarkable REPRODUCTIVE: Unremarkable. ABDOMEN & PELVIS STOMACH AND BOWEL: Stomach and small bowel are nondistended, no evidence of obstruction. Unremarkable appendix. Some stool throughout the colon without clear cut focal inflammatory process seen. PERITONEUM/RETROPERITONEUM: No evidence of pneumoperitoneum or free fluid. VASCULATURE: No evidence of aortic aneurysm. MUSCULOSKELETAL: No acute osseous abnormalities . Mild degenerative changes. LYMPH NODES: No gross evidence for lymphadenopathy. SOFT TISSUE/ABDOMINAL WALL: Unremarkable IMPRESSION: No definite acute CT abnormality.
[2023-09-25 18:06] VITALS: BP 122/64; PULSE 60
[2023-09-25] MEDS ORDERED: ONDANSETRON 4 MG ODT STARTER PACK 2 TAB BTL PO STA (18:28)
== END 2023-09-25 18:48 | disposition home or self-care (01) ==
LOC: EC 14:03
DX: K62.5 Hemorrhage of anus and rectum (principal); E07.9 Disorder of thyroid, unspecified; Z86.59 Personal history of other mental and behavioral disorders; Z79.890 Hormone replacement therapy
CPT/HCPCS: 36415; 86900; 86901; 80053; 83605; 83690; 83735; 85025; 85610; 85730; 86850; 82272; 81003; 74177; 96374; 96375 ×2; 96361 ×3; 99285; J1200; J2765; S0119; C9113; Q9967

== ENCOUNTER 2023-09-29 11:21 | Emergency (ER) | payer OTHER ==
[2023-09-29 11:53] VITALS: TEMP 98.9
[2023-09-29 12:22] VITALS: RESP 18
[2023-09-29 12:32] LABS: ALT 53 U/L (4-34); AST 49 U/L (14-36); African American GFR (CKD) >90 (>60 ml/min/1.73 sqM); Albumin 4.7 g/dL (3.5-5.0); Alkaline Phosphatase 71 U/L (38-126); Anion Gap 15 mmol/L; Blood Urea Nitrogen 10 mg/dL (7-17); Calcium 9.8 mg/dL (8.4-10.2); Carbon Dioxide 17 mmol/L (22-30); Chloride 103 mmol/L (98-107); Glucose 85 mg/dL (74-99); Non-African American GFR(CKD) >90 (>60 ml/min/1.73 sqM); Potassium 3.8 mmol/L (3.5-5.1); Sodium 135 mmol/L (137-145); Total Bilirubin 0.6 mg/dL (0.2-1.3); Total Protein 8.4 g/dL (6.3-8.2)
[2023-09-29 12:35] LABS: Basophils # (A) 0.1 k/uL (0-0.2); Basophils % (A) 1 %; Eosinophils # (A) 0.2 k/uL (0-0.7); Eosinophils % (A) 2 %; HCT 36.2 % (34.0-46.0); HGB 11.9 gm/dL (11.4-16.0); Hypochromasia Slight; Lymphocytes # (A) 2.3 k/uL (1.0-4.8); Lymphocytes % (A) 22 %; MCH 23.1 pg (25.0-35.0); MCHC 32.8 g/dL (31.0-37.0); MCV 70.4 fL (80.0-100.0); Microcytosis Moderate; Monocytes # (A) 0.6 k/uL (0-1.0); Monocytes % (A) 6 %; Neutrophils # (A) 6.9 k/uL (1.3-7.7); Neutrophils % (A) 68 %; Platelet Count 424 k/uL (150-450); RBC 5.14 m/uL (3.80-5.40); RDW 15.5 % (11.5-15.5); WBC 10.2 k/uL (3.8-10.6)
--- NOTE | 2023-09-29 12:47 | XR ---
EXAMINATION TYPE: XR chest 2V DATE OF EXAM: 09/29/2023 12:14 PM CLINICAL INDICATION:Female, 37 years old with history of sob, cp; [facility] COMPARISON: Chest radiographs from 07/15/2023 TECHNIQUE: XR chest 2V Frontal and lateral views of the chest. FINDINGS: Lungs/Pleura: There is no evidence of pleural effusion, focal consolidation, or pneumothorax. Pulmonary vascularity: Unremarkable. Heart/mediastinum: Cardiomediastinal silhouette is unremarkable. Musculoskeletal: No acute osseous pathology. IMPRESSION: No acute cardiopulmonary disease/process.
--- NOTE | 2023-09-29 12:48 | ED ---
General Adult HPI - General Chief complaint: Shortness of Breath Stated complaint: SOB Time Seen by Provider: 09/29/23 12:00 Source: patient, RN notes reviewed Mode of arrival: ambulatory Limitations: no limitations - History of Present Illness Initial comments: Patient is a pleasant 37-year-old female presenting to the emergency department with exertional dyspnea. Onset of symptoms was a couple days ago. Patient did have some rectal bleeding that resolved around 4 days ago. None since that time. Patient is sitting up appointments for colonoscopy. Patient states last 2 days when she exerts herself she does get some chest tightness and dyspnea. No symptoms at rest. No history of similar symptoms previously. Patient has been fatigued. Patient is concerned her feet are tingly. - Related Data Home Medications Medication Instructions Recorded Confirmed norgestimate-ethinyl estradioL 1 tab PO HS 11/02/17 09/25/23 [Sprintec 28 Day Tablet] Levothyroxine Sodium [Synthroid] 50 mcg PO DAILY 06/17/18 09/25/23 Previous Rx's Medication Instructions Recorded Dicyclomine [Bentyl] 10 mg PO TID PRN 7 Days #21 capsule 09/25/23 Nirmatrelvir/Ritonavir [Paxlovid 1 each PO BID #10 each 09/29/23 300-100 mg Pack (Eua)] Allergies Allergy/AdvReac Type Severity Reaction Status Date / Time No Known Allergies Allergy Verified 09/29/23 11:38 Review of Systems ROS Statement: Those systems with pertinent positive or pertinent negative responses have been documented in the HPI. ROS Other: All systems not noted in ROS Statement are negative. 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 History of Any Multi-Drug Resistant Organisms: MRSA Date of last positivie culture/infection: 08/2011 MDRO Source:: right thigh Past Surgical History: Adenoidectomy, Section, Hernia Repair, Tonsillectomy Additional Past Surgical History / Comment(s): d and C, removal of endometrioma Past Anesthesia/Blood Transfusion Reactions: No Reported Reaction Past Psychological History: Anxiety, Depression Smoking Status: Never smoker Past Alcohol Use History: Occasional Past Drug Use History: None Reported - Past Family History Son(s) Additional Family Medical History / Comment(s): autism Grandmother Family Medical History: Blood Disorder, Congestive Heart Failure (CHF), Diabetes Mellitus, Hyperlipidemia General Exam Limitations: no limitations General appearance: alert, in no apparent distress Head exam: Present: normocephalic Eye exam: Present: normal appearance ENT exam: Present: normal oropharynx Neck exam: Present: normal inspection Respiratory exam: Present: normal lung sounds bilaterally. Absent: chest wall tenderness Cardiovascular Exam: Present: regular rate, normal rhythm Expanded Peripheral pulses: 2+: Radial (R), Radial (L), Posterior Tibialis (R), Posterior Tibialis (L) GI/Abdominal exam: Present: soft. Absent: tenderness Extremities exam: Present: normal inspection. Absent: pedal edema, calf tenderness Neurological exam: Present: alert Psychiatric exam: Present: normal affect, normal mood Skin exam: Present: normal color Course Vital Signs 09/29/23 09/29/23 09/29/23 11:38 12:17 14:30 Temperature 98.9 F Pulse Rate 100 68 Respiratory 16 18 18 Rate Blood Pressure 127/93 O2 Sat by Pulse 99 98 Oximetry 09/29/23 14:56 Temperature Pulse Rate Respiratory Rate Blood Pressure 118/74 O2 Sat by Pulse Oximetry EKG Findings - EKG Results: EKG: interpreted by ERMD, sinus rhythm, normal axis, normal QRS, normal ST/T Medical Decision Making - Medical Decision Making Was pt. sent in by a medical professional or institution (, PA, EXTRUSION ENGINEER, urgent care, hospital, or custodial...) When possible be specific @ -No Did you speak to anyone other than the patient for history (EMS, parent, family, police, friend...)? What history was obtained from this source @ -No Did you review nursing and triage notes (agree or disagree)? Why? @ -I reviewed and agree with nursing and triage notes Were old charts reviewed (outside hosp., previous admission, EMS record, old EKG, old radiological studies, urgent care reports/EKG's, custodial records)? Report findings @ -Previous labs reviewed Differential Diagnosis (chest pain, altered mental status, abdominal pain women, abdominal pain men, vaginal bleeding, weakness, fever, dyspnea, syncope, headache, dizziness, GI bleed, back pain, seizure, CVA, palpatations, mental health, musculoskeletal)? @ -Differential Weakness: Hypoglycemia, shock, sepsis, hyponatremia, anemia, infection, [place], ETOH, adverse medicine reaction, overdose, stroke, this is not meant to be an all-inclusive list. EKG interpreted by me (3pts min.). @ -As above X-rays interpreted by me (1pt min.). @ -Chest x-ray shows no acute process CT interpreted by me (1pt min.). @ -None done U/S interpreted by me (1pt. min.). @ -None done What testing was considered but not performed or refused? (CT, X-rays, U/S, labs)? Why? @ -None What meds were considered but not given or refused? Why? @ -None Did you discuss the management of the patient with other professionals (professionals i.e. , PA, EXTRUSION ENGINEER, lab, RT, psych nurse, child protective services social worker, pond supervisor, teacher, jailer/training officer, watch caser)? Give summary @ -No Was smoking cessation discussed for >3mins.? @ -No Was critical care preformed (if so, how long)? @ -No Were there social determinants of health that impacted care today? How? (Homelessness, low income, unemployed, alcoholism, drug addiction, transportation, low edu. Level, literacy, decrease access to med. care, skilled nursing, rehab)? @ -No Was there de-escalation of care discussed even if they declined (Discuss DNR or withdrawal of care, Hospice)? DNR status @ -No What co-morbidities impacted this encounter? (DM, HTN, Smoking, COPD, CAD, Cancer, CVA, ARF, Chemo, Hep., AIDS, mental health diagnosis, sleep apnea, morbid obesity)? @ -None Was patient admitted / discharged? Hospital course, mention meds given and route, prescriptions, significant lab abnormalities, going to OR and other pertinent info. @ -Patient reevaluated and resting comfortably in bed. Patient symptom free at this time. Patient updated on results and need for follow-up. Patient will be prescribed antivirals Undiagnosed new problem with uncertain prognosis? @ -No Drug Therapy requiring intensive monitoring for toxicity (Heparin, Nitro, Insulin, Cardizem)? @ -No Were any procedures done? @ -No Diagnosis/symptom? @ -COVID-19, exertional dyspnea Acute, or Chronic, or Acute on Chronic? @ -Acute Uncomplicated (without systemic symptoms) or Complicated (systemic symptoms)? @ -default Side effects of treatment? @ -No Exacerbation, Progression, or Severe Exacerbation? @ -No Poses a threat to life or bodily function? How? (Chest pain, [place], [place], pneumonia, PE, COPD, DKA, ARF, appy, cholecystitis, CVA, Diverticulitis, Homicidal, Suicidal, threat to staff... and all critical care pts) @ -No - Lab Data Result diagrams: 09/29/23 12:06 09/29/23 12:06 Lab Results 09/29/23 09/29/23 09/29/23 Range/Units 12:06 12:06 12:06 WBC 10.2 (3.8-10.6) k/uL RBC 5.14 (3.80-5.40) m/uL Hgb 11.9 (11.4-16.0) gm/dL Hct 36.2 (34.0-46.0) % MCV 70.4 L (80.0-100.0) fL MCH 23.1 L (25.0-35.0) pg MCHC 32.8 (31.0-37.0) g/dL RDW 15.5 (11.5-15.5) % Plt Count 424 (150-450) k/uL MPV 7.0 Neutrophils % 68 % Lymphocytes % 22 % Monocytes % 6 % Eosinophils % 2 % Basophils % 1 % Neutrophils # 6.9 (1.3-7.7) k/uL Lymphocytes # 2.3 (1.0-4.8) k/uL Monocytes # 0.6 (0-1.0) k/uL Eosinophils # 0.2 (0-0.7) k/uL Basophils # 0.1 (0-0.2) k/uL Hypochromasia Slight Microcytosis Moderate D-Dimer (<0.60) mg/L FEU Sodium 135 L (137-145) mmol/L Potassium 3.8 (3.5-5.1) mmol/L Chloride 103 (98-107) mmol/L Carbon Dioxide 17 L (22-30) mmol/L Anion Gap 15 mmol/L BUN 10 (7-17) mg/dL Creatinine 0.59 (0.52-1.04) mg/dL Est GFR (CKD-EPI)AfAm >90 (>60 ml/min/1.73 sqM) Est GFR (CKD-EPI)NonAf >90 (>60 ml/min/1.73 sqM) Glucose 85 (74-99) mg/dL Plasma Lactic Acid Luis Alfredo 1.2 (0.7-2.0) mmol/L Calcium 9.8 (8.4-10.2) mg/dL Total Bilirubin 0.6 (0.2-1.3) mg/dL AST 49 H (14-36) U/L ALT 53 H (4-34) U/L Alkaline Phosphatase 71 (38-126) U/L Troponin I (0.000-0.034) ng/mL NT-Pro-B Natriuret Pep pg/mL Total Protein 8.4 H (6.3-8.2) g/dL Albumin 4.7 (3.5-5.0) g/dL Urine Color Urine Appearance (Clear) Urine pH (5.0-8.0) Ur Specific [place] (1.001-1.035) Urine Protein (Negative) Urine Glucose (UA) (Negative) Urine Ketones (Negative) Urine Blood (Negative) Urine Nitrite (Negative) Urine Bilirubin (Negative) Urine Urobilinogen (<2.0) mg/dL Ur Leukocyte Esterase (Negative) Urine RBC (0-5) /hpf Urine WBC (0-5) /hpf Ur Squamous Epith Cells (0-4) /hpf Urine Bacteria (None) /hpf Urine Mucus (None) /hpf SARS-CoV-2 (PCR) (Not Detectd) 09/29/23 09/29/23 09/29/23 Range/Units 12:06 12:06 12:50 WBC (3.8-10.6) k/uL RBC (3.80-5.40) m/uL Hgb (11.4-16.0) gm/dL Hct (34.0-46.0) % MCV (80.0-100.0) fL MCH (25.0-35.0) pg MCHC (31.0-37.0) g/dL RDW (11.5-15.5) % Plt Count (150-450) k/uL MPV Neutrophils % % Lymphocytes % % Monocytes % % Eosinophils % % Basophils % % Neutrophils # (1.3-7.7) k/uL Lymphocytes # (1.0-4.8) k/uL Monocytes # (0-1.0) k/uL Eosinophils # (0-0.7) k/uL Basophils # (0-0.2) k/uL Hypochromasia Microcytosis D-Dimer (<0.60) mg/L FEU Sodium (137-145) mmol/L Potassium (3.5-5.1) mmol/L Chloride (98-107) mmol/L Carbon Dioxide (22-30) mmol/L Anion Gap mmol/L BUN (7-17) mg/dL Creatinine (0.52-1.04) mg/dL Est GFR (CKD-EPI)AfAm (>60 ml/min/1.73 sqM) Est GFR (CKD-EPI)NonAf (>60 ml/min/1.73 sqM) Glucose (74-99) mg/dL Plasma Lactic Acid Luis Alfredo (0.7-2.0) mmol/L Calcium (8.4-10.2) mg/dL Total Bilirubin (0.2-1.3) mg/dL AST (14-36) U/L ALT (4-34) U/L Alkaline Phosphatase (38-126) U/L Troponin I <0.012 (0.000-0.034) ng/mL NT-Pro-B Natriuret Pep <20 pg/mL Total Protein (6.3-8.2) g/dL Albumin (3.5-5.0) g/dL Urine Color Urine Appearance (Clear) Urine pH (5.0-8.0) Ur Specific [place] (1.001-1.035) Urine Protein (Negative) Urine Glucose (UA) (Negative) Urine Ketones (Negative) Urine Blood (Negative) Urine Nitrite (Negative) Urine Bilirubin (Negative) Urine Urobilinogen (<2.0) mg/dL Ur Leukocyte Esterase (Negative) Urine RBC (0-5) /hpf Urine WBC (0-5) /hpf Ur Squamous Epith Cells (0-4) /hpf Urine Bacteria (None) /hpf Urine Mucus (None) /hpf SARS-CoV-2 (PCR) Detected A (Not Detectd) 09/29/23 09/29/23 Range/Units 12:59 14:56 WBC (3.8-10.6) k/uL RBC (3.80-5.40) m/uL Hgb (11.4-16.0) gm/dL Hct (34.0-46.0) % MCV (80.0-100.0) fL MCH (25.0-35.0) pg MCHC (31.0-37.0) g/dL RDW (11.5-15.5) % Plt Count (150-450) k/uL MPV Neutrophils % % Lymphocytes % % Monocytes % % Eosinophils % % Basophils % % Neutrophils # (1.3-7.7) k/uL Lymphocytes # (1.0-4.8) k/uL Monocytes # (0-1.0) k/uL Eosinophils # (0-0.7) k/uL Basophils # (0-0.2) k/uL Hypochromasia Microcytosis D-Dimer 0.35 (<0.60) mg/L FEU Sodium (137-145) mmol/L Potassium (3.5-5.1) mmol/L Chloride (98-107) mmol/L Carbon Dioxide (22-30) mmol/L Anion Gap mmol/L BUN (7-17) mg/dL Creatinine (0.52-1.04) mg/dL Est GFR (CKD-EPI)AfAm (>60 ml/min/1.73 sqM) Est GFR (CKD-EPI)NonAf (>60 ml/min/1.73 sqM) Glucose (74-99) mg/dL Plasma Lactic Acid Luis Alfredo (0.7-2.0) mmol/L Calcium (8.4-10.2) mg/dL Total Bilirubin (0.2-1.3) mg/dL AST (14-36) U/L ALT (4-34) U/L Alkaline Phosphatase (38-126) U/L Troponin I (0.000-0.034) ng/mL NT-Pro-B Natriuret Pep pg/mL Total Protein (6.3-8.2) g/dL Albumin (3.5-5.0) g/dL Urine Color Yellow Urine Appearance Clear (Clear) Urine pH 6.0 (5.0-8.0) Ur Specific [place] 1.032 (1.001-1.035) Urine Protein 1+ H (Negative) Urine Glucose (UA) Negative (Negative) Urine Ketones 4+ H (Negative) Urine Blood Negative (Negative) Urine Nitrite Negative (Negative) Urine Bilirubin Negative (Negative) Urine Urobilinogen <2.0 (<2.0) mg/dL Ur Leukocyte Esterase Negative (Negative) Urine RBC 5 (0-5) /hpf Urine WBC 2 (0-5) /hpf Ur Squamous Epith Cells <1 (0-4) /hpf Urine Bacteria Rare H (None) /hpf Urine Mucus Many H (None) /hpf SARS-CoV-2 (PCR) (Not Detectd) Disposition Clinical Impression: COVID-19 Disposition: HOME SELF-CARE Condition: Stable Instructions (If sedation given, give patient instructions): Dyspnea (ED), COVID-19 (Coronavirus Disease 2019) (ED) Additional Instructions: Prescription sent to pharmacy. [id number] vitamin C, vitamin D, and zinc. Return for difficulty breathing, fevers, pain, worsening or changing symptoms or any other concerns. Prescriptions: Nirmatrelvir/Ritonavir [Paxlovid 300-100 mg Pack (Eua)] 1 each PO BID #10 each Is patient prescribed a controlled substance at d/c from ED?: No Referrals: Xavier Gomez DO [Primary Care Provider] - 1-2 days Time of Disposition: 15:30
[2023-09-29 15:07] LABS: Appearance,Urine Clear (Clear); Bacteria,Urine Rare /hpf; Bilirubin,Urine Negative (Negative); Blood,Urine Negative (Negative); Color,Urine Yellow; Glucose,Urine (UA) Negative (Negative); Ketones,Urine 4+ (Negative); Leukocyte Esterase,Urine Negative (Negative); Mucus,Urine Many /hpf; Nitrite,Urine Negative (Negative); Protein,Urine 1+ (Negative); RBC,Urine 5 /hpf (0-5); Specific Gravity,Urine 1.032 (1.001-1.035); Squamous Epithelial Cell,Urine <1 /hpf (0-4); Urobilinogen,Urine <2.0 mg/dL (<2.0); WBC,Urine 2 /hpf (0-5)
[2023-09-29 15:14] VITALS: BP 118/74
[2023-09-29] MEDS ORDERED: SODIUM CHLORIDE 0.9% 500 ML 500 ML IV STA ×2 (15:27→15:28)
[2023-09-29 16:36] VITALS: PULSE 69
== END 2023-09-29 16:48 | disposition home or self-care (01) ==
LOC: EC 11:21
DX: U07.1 COVID-19 (principal); E07.9 Disorder of thyroid, unspecified; Z86.59 Personal history of other mental and behavioral disorders; Z79.890 Hormone replacement therapy
CPT/HCPCS: 36415; 71046; 80053; 81001; 83605; 83880; 84484; 85025; 85379; 87635; 93005; 96360; 99285

== ENCOUNTER 2023-10-01 10:42 | Emergency (ER) | payer OTHER ==
[2023-10-01 11:08] VITALS: BP 120/72; PULSE 90; RESP 18; TEMP 98
--- NOTE | 2023-10-01 12:43 | ED ---
General Adult HPI - General Chief complaint: Dizziness Stated complaint: Dizziness Time Seen by Provider: 10/01/23 10:48 Source: patient Mode of arrival: ambulatory Limitations: no limitations - History of Present Illness Initial comments: Dictation was produced using [employer] dictation software. please excuse any grammatical, word or spelling errors. Chief Complaint: 37-year-old female presents with generalized weakness History of Present Illness: 37-year-old female presents with chief complaint of generalized weakness. States that she has worsening weakness. She tested positive for COVID-19 several weeks prior. She was at [facility] emergency department within the last 48 hours for the same complaint. She was told that she has long Covid and discharge. Patient presents to emergency department via EMS from home for worsening weakness. The ROS documented in this emergency department record has been reviewed and c onfirmed by me. Those systems with pertinent positive or negative responses have been documented in the HPI. All other systems are other negative and/or noncontributory. - Related Data Home Medications Medication Instructions Recorded Confirmed norgestimate-ethinyl estradioL 1 tab PO HS 11/02/17 09/25/23 [Sprintec 28 Day Tablet] Levothyroxine Sodium [Synthroid] 50 mcg PO DAILY 06/17/18 09/25/23 Previous Rx's Medication Instructions Recorded Dicyclomine [Bentyl] 10 mg PO TID PRN 7 Days #21 capsule 09/25/23 Nirmatrelvir/Ritonavir [Paxlovid 1 each PO BID #10 each 09/29/23 300-100 mg Pack (Eua)] Allergies Allergy/AdvReac Type Severity Reaction Status Date / Time No Known Allergies Allergy Verified 10/01/23 10:48 Review of Systems ROS Statement: Those systems with pertinent positive or pertinent negative responses have been documented in the HPI. ROS Other: All systems not noted in ROS Statement are negative. 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 History of Any Multi-Drug Resistant Organisms: MRSA Date of last positivie culture/infection: 08/2011 MDRO Source:: right thigh Past Surgical History: Adenoidectomy, Section, Hernia Repair, Tonsillectomy Additional Past Surgical History / Comment(s): d and C, removal of endometrioma Past Anesthesia/Blood Transfusion Reactions: No Reported Reaction Past Psychological History: Anxiety, Depression Smoking Status: Never smoker Past Alcohol Use History: Occasional Past Drug Use History: None Reported - Past Family History Son(s) Additional Family Medical History / Comment(s): autism Grandmother Family Medical History: Blood Disorder, Congestive Heart Failure (CHF), Diabetes Mellitus, Hyperlipidemia General Exam - General Exam Comments Initial Comments: PHYSICAL EXAM: General Impression: Alert and oriented x3, not in acute distress HEENT: Normocephalic atraumatic, extra-ocular movements intact, pupils equal and reactive to light bilaterally, mucous membranes moist. Cardiovascular: Heart regular rate and rhythm Chest: Able to complete full sentences, no retractions, no tachypnea Abdomen: abdomen soft, non-tender, non-distended, no organomegaly Musculoskeletal: Pulses present and equal in all extremities, no peripheral edema Motor: no focal deficits noted Neurological: CN II-XII grossly intact, no focal motor or sensory deficits noted Skin: Intact with no visualized rashes Psych: Normal affect and mood Limitations: no limitations Course Vital Signs 10/01/23 10:46 Temperature 98 F Pulse Rate 90 Respiratory 18 Rate Blood Pressure 120/72 O2 Sat by Pulse 98 Oximetry Medical Decision Making - Medical Decision Making Was pt. sent in by a medical professional or institution (PAM Ryan, WELDING MACHINE OPERATOR/TENDER, urgent care, hospital, or intermediate...) When possible be specific @ -No Did you speak to anyone other than the patient for history (EMS, parent, family, police, friend...)? What history was obtained from this source @ -No Did you review nursing and triage notes (agree or disagree)? Why? @ -I reviewed and agree with nursing and triage notes Were old charts reviewed (outside hosp., previous admission, EMS record, old EKG, old radiological studies, urgent care reports/EKG's, intermediate records)? Report findings @ -No old charts were reviewed Differential Diagnosis (chest pain, altered mental status, abdominal pain women, abdominal pain men, vaginal bleeding, musculoskeletal, weakness, fever, dyspnea, syncope, headache, dizziness, GI bleed, back pain, seizure, CVA, palpatations, mental health)? @ -DDifferential Weakness: Hypoglycemia, shock, sepsis, hyponatremia, anemia, infection, [place], ETOH, adverse medicine reaction, overdose, stroke, this is not meant to be an all-inclusive list. EKG interpreted by me (3pts min.). @ -None done X-rays interpreted by me (1pt min.). @ -Chest x-ray is nonacute CT interpreted by me (1pt min.). @ -None done U/S interpreted by me (1pt. min.). @ -None done What testing was considered but not performed or refused? (CT, X-rays, U/S, labs)? Why? @ -None What meds were considered but not given or refused? Why? @ -None Did you discuss the management of the patient with other professionals (pr ofessionals i.e. , PA, WELDING MACHINE OPERATOR/TENDER, lab, RT, psych nurse, social sciences instructor, director of premium seat sales, teacher, procurement officer, home health care case manager)? Give summary @ -No Was smoking cessation discussed for >3mins.? @ -No Was critical care preformed (if so, how long)? @ -No Were there social determinants of health that impacted care today? How? (Homelessness, low income, unemployed, alcoholism, drug addiction, transport ation, low edu. Level, literacy, decrease access to med. care, fci, rehab)? @ -No Was there de-escalation of care discussed even if they declined (Discuss DNR or withdrawal of care, Hospice)? DNR status @ -No What co-morbidities impacted this encounter? (DM, HTN, Smoking, COPD, CAD, Cancer, CVA, ARF, Chemo, Hep., AIDS, mental health diagnosis, sleep apnea, morbid obesity)? @ -None Was patient admitted / discharged? Hospital course, mention meds given and route, prescriptions, significant lab abnormalities, going to OR and other pertinent info. @ -37 Year-old female presents yet again to emergency department for generalized weakness. Vital signs are stable. Patient well. The bedside laboratory evaluation is unremarkable. Chest x-ray is nonacute. Patient strongly advised to follow-up with her primary care doctor for outpatient management of her symptoms. She is told that she does not have any high-risk features or life-threatening features. Undiagnosed new problem with uncertain prognosis? @ -No Drug Therapy requiring intensive monitoring for toxicity (Heparin, Nitro, Insulin, Cardizem)? @ -No Were any procedures done? @ -No Diagnosis/symptom? Acute, or Chronic, or Acute on Chronic? Uncomplicated (without systemic symptoms) or Complicated (systemic symptoms)? @ -Generalized weakness Side effects of treatment? @ -No Exacerbation, Progression, or Severe Exacerbation? @ -No Poses a threat to life or bodily function? How? (Chest pain, [place], [place], pneumonia, PE, COPD, DKA, ARF, appy, cholecystitis, CVA, Diverticulitis, Homicidal, Suicidal, threat to staff... and all critical care pts) @ -No - Lab Data Result diagrams: 10/01/23 12:19 10/01/23 12:19 Lab Results 10/01/23 10/01/23 Range/Units 12:19 12:19 WBC 10.0 (3.8-10.6) k/uL RBC 4.73 (3.80-5.40) m/uL Hgb 11.0 L (11.4-16.0) gm/dL Hct 33.4 L (34.0-46.0) % MCV 70.6 L (80.0-100.0) fL MCH 23.2 L (25.0-35.0) pg MCHC 32.9 (31.0-37.0) g/dL RDW 16.0 H (11.5-15.5) % Plt Count 427 (150-450) k/uL MPV 7.9 Neutrophils % 64 % Lymphocytes % 27 % Monocytes % 6 % Eosinophils % 1 % Basophils % 1 % Neutrophils # 6.4 (1.3-7.7) k/uL Lymphocytes # 2.7 (1.0-4.8) k/uL Monocytes # 0.6 (0-1.0) k/uL Eosinophils # 0.1 (0-0.7) k/uL Basophils # 0.1 (0-0.2) k/uL Hypochromasia Slight Anisocytosis Slight Microcytosis Moderate Sodium 137 (137-145) mmol/L Potassium 4.0 (3.5-5.1) mmol/L Chloride 104 (98-107) mmol/L Carbon Dioxide 18 L (22-30) mmol/L Anion Gap 15 mmol/L BUN 10 (7-17) mg/dL Creatinine 0.68 (0.52-1.04) mg/dL Est GFR (CKD-EPI)AfAm >90 (>60 ml/min/1.73 sqM) Est GFR (CKD-EPI)NonAf >90 (>60 ml/min/1.73 sqM) Glucose 82 (74-99) mg/dL Calcium 9.4 (8.4-10.2) mg/dL Disposition Clinical Impression: Generalized weakness Disposition: HOME SELF-CARE Condition: Good Instructions (If sedation given, give patient instructions): Dizziness (ED) Is patient prescribed a controlled substance at d/c from ED?: No Referrals: Xavier Gomez DO [Primary Care Provider] - 1-2 days Time of Disposition: 13:28
--- NOTE | 2023-10-01 12:43 | XR ---
EXAMINATION TYPE: XR chest 2V DATE OF EXAM: 10/01/2023 COMPARISON: 09/29/2023 HISTORY: Chest pain TECHNIQUE: Frontal and lateral views of the chest are obtained. FINDINGS: There is no focal air space opacity. No evidence for pneumothorax. No pleural effusion. The cardiac silhouette size is within normal limits. The osseous structures are grossly intact. IMPRESSION: 1. No acute cardiopulmonary process.
[2023-10-01 13:02] LABS: Anisocytosis Slight; Basophils # (A) 0.1 k/uL (0-0.2); Basophils % (A) 1 %; Eosinophils # (A) 0.1 k/uL (0-0.7); Eosinophils % (A) 1 %; HCT 33.4 % (34.0-46.0); Hypochromasia Slight; Lymphocytes # (A) 2.7 k/uL (1.0-4.8); Lymphocytes % (A) 27 %; MCH 23.2 pg (25.0-35.0); MCHC 32.9 g/dL (31.0-37.0); MCV 70.6 fL (80.0-100.0); Mean Platelet Volume 7.9; Microcytosis Moderate; Monocytes # (A) 0.6 k/uL (0-1.0); Monocytes % (A) 6 %; Neutrophils # (A) 6.4 k/uL (1.3-7.7); Neutrophils % (A) 64 %; Platelet Count 427 k/uL (150-450); RBC 4.73 m/uL (3.80-5.40)
[2023-10-01 13:13] LABS: African American GFR (CKD) >90 (>60 ml/min/1.73 sqM); Anion Gap 15 mmol/L; Blood Urea Nitrogen 10 mg/dL (7-17); Calcium 9.4 mg/dL (8.4-10.2); Carbon Dioxide 18 mmol/L (22-30); Chloride 104 mmol/L (98-107); Glucose 82 mg/dL (74-99); Non-African American GFR(CKD) >90 (>60 ml/min/1.73 sqM); Sodium 137 mmol/L (137-145)
[2023-10-01] MEDS ORDERED: SODIUM CHLORIDE 0.9% 1,000 ML IV STA (13:19)
== END 2023-10-01 13:46 | disposition home or self-care (01) ==
LOC: EC 10:42
DX: R53.1 Weakness (principal); E07.9 Disorder of thyroid, unspecified; Z79.890 Hormone replacement therapy; Z86.16 Personal history of COVID-19
CPT/HCPCS: 36415; 71046; 80048; 85025; 99285

== ENCOUNTER 2023-10-08 14:11 | Emergency (ER) | payer OTHER ==
--- NOTE | 2023-10-08 16:13 | ED ---
Syncope HPI - General Chief Complaint: Syncope Stated Complaint: passed out confusion nausea abd pain dizzy Time Seen by Provider: 10/08/23 15:39 Source: patient Mode of arrival: wheelchair Limitations: no limitations - History of Present Illness Initial Comments: This patient is a 37-year-old woman who presents to have evaluation after she had passed out and her aunt's vehicle. Patient states that the last few weeks she has been having episodes of lightheadedness and generalized weakness/fatigue. She states that she did see her primary physician about 2 weeks ago and was told that she was going to be referred to a "blood specialist." Patient states today she was riding in the vehicle and then she must have passed out. She states that her aunt tried calling her name and number times and then had to stop the vehicle and shake her. She was then confused for a period of time but there was no shaking movement noted. No incontinence. Patient denies chest pain, dyspnea, diaphoresis, nausea or vomiting. No fever or chills. No cough. She has been having some cramping aching left upper quadrant pain going back a day to 2 and states her oral intake has been somewhat decreased because of that. No vomiting. No change in bowel movements or urination MD Complaint: loss of consciousness -: minutes(s) Prodromal Symptoms: lightheaded -: second(s) Witnessed: yes - by bystander Injuries Sustained Associated with Event: None Current Symptoms: back to baseline Context: at rest Treatments Prior to Arrival: none - Related Data Home Medications Medication Instructions Recorded Confirmed norgestimate-ethinyl estradioL 1 tab PO HS 11/02/17 10/08/23 [Sprintec 28 Day Tablet] Levothyroxine Sodium [Synthroid] 50 mcg PO DAILY 06/17/18 10/08/23 Doxycycline Monohydrate 100 mg PO BID 10/08/23 10/08/23 Ergocalciferol (Vitamin D2) 1,250 mcg PO Q7D 10/08/23 10/08/23 [Drisdol (50,000 Iu)] Previous Rx's Medication Instructions Recorded Dicyclomine [Bentyl] 10 mg PO TID PRN 7 Days #21 capsule 09/25/23 Potassium Chloride ER [K-Dur 20] 20 meq PO BID #10 tab 10/08/23 Allergies Allergy/AdvReac Type Severity Reaction Status Date / Time No Known Allergies Allergy Verified 10/08/23 18:31 Review of Systems ROS Statement: Those systems with pertinent positive or pertinent negative responses have been documented in the HPI. ROS Other: All systems not noted in ROS Statement are negative. Constitutional: Denies: fever, chills, weakness Eyes: Denies: vision change Respiratory: Denies: cough, dyspnea Cardiovascular: Reports: syncope. Denies: chest pain, palpitations, edema Gastrointestinal: Reports: abdominal pain. 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 History of Any Multi-Drug Resistant Organisms: MRSA Date of last positivie culture/infection: 08/2011 MDRO Source:: right thigh Past Surgical History: Adenoidectomy, Section, Hernia Repair, Tonsillectomy Additional Past Surgical History / Comment(s): d and C, removal of endometrioma Past Anesthesia/Blood Transfusion Reactions: No Reported Reaction Past Psychological History: Anxiety, Depression Smoking Status: Never smoker Past Alcohol Use History: Occasional Past Drug Use History: None Reported - Past Family History Son(s) Additional Family Medical History / Comment(s): autism Grandmother Family Medical History: Blood Disorder, Congestive Heart Failure (CHF), Diabetes Mellitus, Hyperlipidemia General Exam Limitations: no limitations General appearance: alert, in no apparent distress Head exam: Present: atraumatic, normocephalic Eye exam: Present: normal appearance. Absent: scleral icterus, conjunctival injection Neck exam: Present: normal inspection Respiratory exam: Present: normal lung sounds bilaterally. Absent: respiratory distress, wheezes, rales, rhonchi, stridor Cardiovascular Exam: Present: regular rate, normal rhythm, normal heart sounds. Absent: systolic murmur, diastolic murmur, rubs, gallop GI/Abdominal exam: Present: soft, tenderness (Mild left upper quadrant tenderness without rebound or guarding). Absent: distended, guarding, rebound, rigid, mass Extremities exam: Present: normal inspection, normal capillary refill. Absent: pedal edema, calf tenderness Back exam: Present: normal inspection. Absent: CVA tenderness (R), CVA tenderness (L) Neurological exam: Present: alert, CN II-XII intact. Absent: oriented X3, motor sensory deficit Skin exam: Present: warm, dry, intact, normal color. Absent: rash Course Vital Signs 10/08/23 10/08/23 14:42 20:51 Temperature 98.3 F 98.2 F Pulse Rate 65 82 Respiratory 16 20 Rate Blood Pressure 122/85 119/80 O2 Sat by Pulse 99 98 Oximetry EKG Findings - EKG Results: EKG: interpreted by ERMMayte, sinus rhythm (With sinus arrhythmia rate 60 bpm), normal axis, normal QRS, normal ST/T, no acute changes Medical Decision Making - Medical Decision Making The patient had CT angiogram of the chest to rule out pulmonary embolism and other pass on G and I interpreted this as negative for acute pulmonary embolism/aortic dissection. The patient had CT of the abdomen and pelvis, which I interpreted to show splenomegaly Was pt. sent in by a medical professional or institution (, PA, ENVIRONMENTAL PROTECTION FORESTER, urgent care, hospital, or jail...) When possible be specific @ -[No] Did you speak to anyone other than the patient for history (EMS, parent, family, police, friend...)? What history was obtained from this source @ -[No] Did you review nursing and triage notes (agree or disagree)? Why? @ -[I reviewed and agree with nursing and triage notes] Were old charts reviewed (outside hosp., previous admission, EMS record, old EKG, old radiological studies, urgent care reports/EKG's, jail records)? Report findings @ -[No old charts were reviewed] Differential Diagnosis (chest pain, altered mental status, abdominal pain women, abdominal pain men, vaginal bleeding, weakness, fever, dyspnea, syncope, headache, dizziness, GI bleed, back pain, seizure, CVA, palpatations, mental health, musculoskeletal)? @ -[Differential Syncope: Valvular disease, hypertrophic cardiomyopathy, pulmonary embolism, tamponade, tachycardia, bradycardia, PA, hypovolemia, hemorrhage, dissection, anemia, intracranial hemorrhage, seizure, hypoglycemia, carbon monoxide poisoning, this is not meant to be an all-inclusive list. EKG interpreted by me (3pts min.). @ -[I interpreted As above] X-rays interpreted by me (1pt min.). @ -[ CT interpreted by me (1pt min.). @ -[I interpreted as above U/S interpreted by me (1pt. min.). @ -[None done] What testing was considered but not performed or refused? (CT, X-rays, U/S, labs)? Why? @ -[None] What meds were considered but not given or refused? Why? @ -[None] Did you discuss the management of the patient with other professionals (professionals i.e. DrGabriel, PA, ENVIRONMENTAL PROTECTION FORESTER, lab, RT, psych nurse, social media marketing analyst, bunker worker, teacher, business development officer, case management director)? Give summary @ -[No] Was smoking cessation discussed for >3mins.? @ -[No] Was critical care preformed (if so, how long)? @ -[No] Were there social determinants of health that impacted care today? How? (Homelessness, low income, unemployed, alcoholism, drug addiction, transportation, low edu. Level, literacy, decrease access to med. care, [facility], rehab)? @ -[No] Was there de-escalation of care discussed even if they declined (Discuss DNR or withdrawal of care, Hospice)? DNR status @ -[No] What co-morbidities impacted this encounter? (DM, HTN, Smoking, COPD, CAD, Cancer, CVA, ARF, Chemo, Hep., AIDS, mental health diagnosis, sleep apnea, morbid obesity)? @ -[None] Was patient admitted / discharged? Hospital course, mention meds given and route, prescriptions, significant lab abnormalities, going to OR and other pertinent info. @ -[Patient is a 37-year-old woman here to have evaluation for syncopal episode. The patient at baseline and feeling better. She would like to go home and have follow-up. We discussed appropriate further care and follow-up as well as seeing cardiology about Holter monitor, possibly other testing. Undiagnosed new problem with uncertain prognosis? @ -[No] Drug Therapy requiring intensive monitoring for toxicity (Heparin, Nitro, Insulin, Cardizem)? @ -[No] Were any procedures done? @ -[No] Diagnosis/symptom? @ -Acute syncopal episode Splenomegaly Hypokalemia Acute, or Chronic, or Acute on Chronic? @ -[Acute Uncomplicated (without systemic symptoms) or Complicated (systemic symptoms)? @ -[Uncomplicated Side effects of treatment? @ -[No] Exacerbation, Progression, or Severe Exacerbation? @ -[No] Poses a threat to life or bodily function? How? (Chest pain, USA, PA, pneumonia, PE, COPD, DKA, ARF, appy, cholecystitis, CVA, Diverticulitis, Homicidal, Suicidal, threat to staff... and all critical care pts) @ -[No] - Lab Data Result diagrams: 10/08/23 16:26 10/08/23 16:26 Lab Results 10/08/23 10/08/23 10/08/23 Range/Units 16:26 16:26 16:26 WBC 11.9 H (3.8-10.6) k/uL RBC 4.59 (3.80-5.40) m/uL Hgb 10.6 L (11.4-16.0) gm/dL Hct 32.4 L (34.0-46.0) % MCV 70.6 L (80.0-100.0) fL MCH 23.1 L (25.0-35.0) pg MCHC 32.6 (31.0-37.0) g/dL RDW 16.1 H (11.5-15.5) % Plt Count 350 (150-450) k/uL MPV 7.5 Neutrophils % 59 % Lymphocytes % 32 % Monocytes % 6 % Eosinophils % 1 % Basophils % 1 % Neutrophils # 7.1 (1.3-7.7) k/uL Lymphocytes # 3.8 (1.0-4.8) k/uL Monocytes # 0.7 (0-1.0) k/uL Eosinophils # 0.1 (0-0.7) k/uL Basophils # 0.1 (0-0.2) k/uL Hypochromasia Slight Anisocytosis Slight Microcytosis Moderate PT 10.9 (10.0-12.5) sec INR 1.0 (<1.2) APTT 23.8 (22.0-30.0) sec D-Dimer 0.68 H (<0.60) mg/L FEU Sodium 139 (137-145) mmol/L Potassium 3.1 L (3.5-5.1) mmol/L Chloride 102 (98-107) mmol/L Carbon Dioxide 22 (22-30) mmol/L Anion Gap 15 mmol/L BUN 14 (7-17) mg/dL Creatinine 0.76 (0.52-1.04) mg/dL Est GFR (CKD-EPI)AfAm >90 (>60 ml/min/1.73 sqM) Est GFR (CKD-EPI)NonAf >90 (>60 ml/min/1.73 sqM) Glucose 87 (74-99) mg/dL Calcium 9.6 (8.4-10.2) mg/dL Total Bilirubin 0.3 (0.2-1.3) mg/dL AST 35 (14-36) U/L ALT 47 H (4-34) U/L Alkaline Phosphatase 63 (38-126) U/L Troponin I (0.000-0.034) ng/mL Total Protein 7.6 (6.3-8.2) g/dL Albumin 4.3 (3.5-5.0) g/dL Urine HCG, Qual (Not Detectd) SARS-CoV-2 (PCR) (Not Detectd) 10/08/23 10/08/23 10/08/23 Range/Units 16:26 16:26 16:43 WBC (3.8-10.6) k/uL RBC (3.80-5.40) m/uL Hgb (11.4-16.0) gm/dL Hct (34.0-46.0) % MCV (80.0-100.0) fL MCH (25.0-35.0) pg MCHC (31.0-37.0) g/dL RDW (11.5-15.5) % Plt Count (150-450) k/uL MPV Neutrophils % % Lymphocytes % % Monocytes % % Eosinophils % % Basophils % % Neutrophils # (1.3-7.7) k/uL Lymphocytes # (1.0-4.8) k/uL Monocytes # (0-1.0) k/uL Eosinophils # (0-0.7) k/uL Basophils # (0-0.2) k/uL Hypochromasia Anisocytosis Microcytosis PT (10.0-12.5) sec INR (<1.2) APTT (22.0-30.0) sec D-Dimer (<0.60) mg/L FEU Sodium (137-145) mmol/L Potassium (3.5-5.1) mmol/L Chloride (98-107) mmol/L Carbon Dioxide (22-30) mmol/L Anion Gap mmol/L BUN (7-17) mg/dL Creatinine (0.52-1.04) mg/dL Est GFR (CKD-EPI)AfAm (>60 ml/min/1.73 sqM) Est GFR (CKD-EPI)NonAf (>60 ml/min/1.73 sqM) Glucose (74-99) mg/dL Calcium (8.4-10.2) mg/dL Total Bilirubin (0.2-1.3) mg/dL AST (14-36) U/L ALT (4-34) U/L Alkaline Phosphatase (38-126) U/L Troponin I <0.012 (0.000-0.034) ng/mL Total Protein (6.3-8.2) g/dL Albumin (3.5-5.0) g/dL Urine HCG, Qual Not Detected (Not Detectd) SARS-CoV-2 (PCR) Not Detected (Not Detectd) Disposition Clinical Impression: Syncope, Splenomegaly, Hypokalemia Disposition: HOME SELF-CARE Condition: Good Instructions (If sedation given, give patient instructions): Hypokalemia (ED), Syncope (DC) Prescriptions: Potassium Chloride ER [K-Dur 20] 20 meq PO BID #10 tab Is patient prescribed a controlled substance at d/c from ED?: No Referrals: Xavier Gomez DO [Primary Care Provider] - 1-2 days
[2023-10-08 16:55] LABS: Anisocytosis Slight; Basophils # (A) 0.1 k/uL (0-0.2); Basophils % (A) 1 %; Eosinophils # (A) 0.1 k/uL (0-0.7); Eosinophils % (A) 1 %; HCT 32.4 % (34.0-46.0); HGB 10.6 gm/dL (11.4-16.0); Hypochromasia Slight; Lymphocytes # (A) 3.8 k/uL (1.0-4.8); Lymphocytes % (A) 32 %; MCH 23.1 pg (25.0-35.0); MCHC 32.6 g/dL (31.0-37.0); MCV 70.6 fL (80.0-100.0); Mean Platelet Volume 7.5; Microcytosis Moderate; Monocytes # (A) 0.7 k/uL (0-1.0); Monocytes % (A) 6 %; Neutrophils # (A) 7.1 k/uL (1.3-7.7); Neutrophils % (A) 59 %; Platelet Count 350 k/uL (150-450); RBC 4.59 m/uL (3.80-5.40); RDW 16.1 % (11.5-15.5); WBC 11.9 k/uL (3.8-10.6)
[2023-10-08 17:07] LABS: ALT 47 U/L (4-34); AST 35 U/L (14-36); African American GFR (CKD) >90 (>60 ml/min/1.73 sqM); Albumin 4.3 g/dL (3.5-5.0); Alkaline Phosphatase 63 U/L (38-126); Anion Gap 15 mmol/L; Blood Urea Nitrogen 14 mg/dL (7-17); Calcium 9.6 mg/dL (8.4-10.2); Carbon Dioxide 22 mmol/L (22-30); Chloride 102 mmol/L (98-107); Glucose 87 mg/dL (74-99); Non-African American GFR(CKD) >90 (>60 ml/min/1.73 sqM); Potassium 3.1 mmol/L (3.5-5.1); Sodium 139 mmol/L (137-145); Total Bilirubin 0.3 mg/dL (0.2-1.3); Total Protein 7.6 g/dL (6.3-8.2)
[2023-10-08 17:21] LABS: Partial Thromboplastin Time 23.8 sec (22.0-30.0); Prothrombin Time 10.9 sec (10.0-12.5)
[2023-10-08] MEDS ORDERED: POTASSIUM CHLORIDE ER 20 MEQ TAB.ER PO STA (17:37)
--- NOTE | 2023-10-08 19:05 | CT ---
EXAMINATION TYPE: CT chest angio for PE DATE OF EXAM: 10/08/2023 COMPARISON: NONE HISTORY: Syncope, r/o PE CT DLP: Combined DLP of 1863.6 mGycm. Automated Exposure Control for Dose Reduction was Utilized. CONTRAST: CTA scan of the thorax is performed with IV Contrast, patient injected with 100 ml mL of Is ovue 300. MIP Images are created on CT scanner and reviewed. 3D reconstructed images are created on an independent workstation and reviewed. FINDINGS: LUNGS: The lungs are grossly clear, there is no concerning parenchymal mass or nodule identified. T here is no pleural effusion or pneumothorax seen. The tracheobronchial tree is patent. MEDIASTINUM: There is satisfactory enhancement of the pulmonary artery and its branches, with no CT e vidence for pulmonary embolism. There is no acute aortic process. No cardiomegaly or pericardial effu ankur. There are no greater than 1 cm hilar or mediastinal lymph nodes. OTHER: No additional significant abnormality is seen. IMPRESSION: No acute process.
--- NOTE | 2023-10-08 19:13 | CT ---
EXAMINATION TYPE: CT abdomen pelvis w con DATE OF EXAM: 10/08/2023 HISTORY: Epigastric and LUQ abdominal pain. CT DLP: Combined DLP of 1863.6mGycm Automated Exposure Control for Dose Reduction was Utilized. CONTRAST: CT scan of the abdomen and pelvis is performed with IV Contrast, patient injected with 100 ml mL of Isovue 370. COMPARISON: CT 09/25/2023 FINDINGS: LUNG BASES: No significant abnormality is appreciated. LIVER/GB: No significant abnormality is appreciated. PANCREAS: No significant abnormality is seen. SPLEEN: Mild splenomegaly with splenic measurement 14.5 cm, unchanged. No focal splenic lesions. ADRENALS: No significant abnormality is seen. KIDNEYS: No significant abnormality is seen. BOWEL: No bowel dilation. No focal inflammatory change. Appendix is normal. UTERUS/ADNEXA: No gross abnormality seen. LYMPH NODES: No greater than 1cm abdominal or pelvic lymph nodes are appreciated. OSSEOUS STRUCTURES: No significant abnormality is seen. OTHER: No significant additional abnormality is seen. IMPRESSION: No acute CT process. Stable mild splenomegaly redemonstrated, of questionable clinical significance.
[2023-10-08] MEDS ORDERED: SODIUM CHLORIDE 0.9% 500 ML 500 ML IV ONE (19:46)
[2023-10-08] MEDS ORDERED: POTASSIUM BICARBONATE/CIT AC 20 MEQ TABLET.EFF PO ONE (20:10)
[2023-10-08 20:56] VITALS: BP 119/80; PULSE 82; RESP 20; TEMP 98.2
== END 2023-10-08 21:00 | disposition home or self-care (01) ==
LOC: EC 14:11
DX: R55 Syncope and collapse (principal); R16.1 Splenomegaly, not elsewhere classified; E87.6 Hypokalemia; E07.9 Disorder of thyroid, unspecified; Z79.890 Hormone replacement therapy; Z86.59 Personal history of other mental and behavioral disorders; Z20.822 Contact with and (suspected) exposure to COVID-19
CPT/HCPCS: 36415; 93005; 85379; 80053; 84484; 85025; 85610; 85730; 81025; 87635; 71275; 74177; 99284; Q9967

== ENCOUNTER 2023-10-31 12:07 | Emergency (ER) | payer OTHER ==
--- NOTE | 2023-10-31 13:09 | ED ---
General Adult HPI - General Chief complaint: Dizziness Stated complaint: Dizziness Time Seen by Provider: 10/31/23 12:11 Source: patient, EMS Mode of arrival: EMS Limitations: no limitations - History of Present Illness Initial comments: 38 year old female presents to the emergency department with several complaints. States that she was driving today when she had sudden onset of visual disturbance in both of her eyes. States that it appeared to be squiggly lines in front of both of her eyes. She also had numbness to her left arm and a headache. Denies history of migraines. Does have a history of visual disturbance and extremity tingling. She follows Dr. Montgomery. States that she has had extensive workup since November for her symptoms. Denies a diagnosis. She reports to some nausea. States that the remainder of her symptoms have alleviated at this time. No weakness. No speech changes. No concern for . No other alleviating, precipitating or modifying factors - Related Data Home Medications Medication Instructions Recorded Confirmed norgestimate-ethinyl estradioL 1 tab PO HS 11/02/17 10/08/23 [Sprintec 28 Day Tablet] Levothyroxine Sodium [Synthroid] 50 mcg PO DAILY 06/17/18 10/08/23 Doxycycline Monohydrate 100 mg PO BID 10/08/23 10/08/23 Ergocalciferol (Vitamin D2) 1,250 mcg PO Q7D 10/08/23 10/08/23 [Drisdol (50,000 Iu)] Previous Rx's Medication Instructions Recorded Dicyclomine [Bentyl] 10 mg PO TID PRN 7 Days #21 capsule 09/25/23 Potassium Chloride ER [K-Dur 20] 20 meq PO BID #10 tab 10/08/23 Allergies Allergy/AdvReac Type Severity Reaction Status Date / Time No Known Allergies Allergy Verified 10/31/23 12:15 Review of Systems ROS Statement: Those systems with pertinent positive or pertinent negative responses have been documented in the HPI. ROS Other: All systems not noted in ROS Statement are negative. 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 Brain swellling, bilat hearing delay. History of Any Multi-Drug Resistant Organisms: MRSA Date of last positivie culture/infection: 08/2011 MDRO Source:: right thigh Past Surgical History: Adenoidectomy, Section, Hernia Repair, Tonsillectomy Additional Past Surgical History / Comment(s): d and C, removal of endometrioma Past Anesthesia/Blood Transfusion Reactions: No Reported Reaction Past Psychological History: Anxiety, Depression Smoking Status: Never smoker Past Alcohol Use History: Occasional Past Drug Use History: None Reported - Past Family History Son(s) Additional Family Medical History / Comment(s): autism Grandmother Family Medical History: Blood Disorder, Congestive Heart Failure (CHF), Diabetes Mellitus, Hyperlipidemia General Exam Limitations: no limitations General appearance: alert, in no apparent distress Head exam: Present: atraumatic, normocephalic, normal inspection Eye exam: Present: normal appearance, PERRL, EOMI. Absent: scleral icterus, conjunctival injection, periorbital swelling ENT exam: Present: normal exam, mucous membranes moist Neck exam: Present: normal inspection. Absent: tenderness, meningismus, lymphadenopathy Respiratory exam: Present: normal lung sounds bilaterally. Absent: respiratory distress, wheezes, rales, rhonchi, stridor Cardiovascular Exam: Present: regular rate, normal rhythm, normal heart sounds. Absent: systolic murmur, diastolic murmur, rubs, gallop, clicks GI/Abdominal exam: Present: soft, normal bowel sounds. Absent: distended, tenderness, guarding, rebound, rigid Extremities exam: Present: normal inspection, full ROM, normal capillary refill. Absent: tenderness, pedal edema, joint swelling, calf tenderness Back exam: Present: normal inspection Neurological exam: Present: alert, oriented X3, CN II-XII intact Psychiatric exam: Present: normal affect, normal mood Skin exam: Present: warm, dry, intact, normal color. Absent: rash Course Vital Signs 10/31/23 10/31/23 10/31/23 12:10 13:40 15:10 Temperature 98.9 F 97.7 F 97.6 F Pulse Rate 84 76 70 Respiratory 18 19 18 Rate Blood Pressure 123/78 114/78 111/66 O2 Sat by Pulse 99 99 100 Oximetry 10/31/23 16:31 Temperature 97.7 F Pulse Rate 66 Respiratory 18 Rate Blood Pressure 128/74 O2 Sat by Pulse 100 Oximetry Medical Decision Making - Medical Decision Making Was pt. sent in by a medical professional or institution ([facility], TUBE TRAILER FILLER, urgent care, hospital, or residential...) When possible be specific @ -No Did you speak to anyone other than the patient for history (EMS, parent, family, police, friend...)? What history was obtained from this source @ -No Did you review nursing and triage notes (agree or disagree)? Why? @ -I reviewed and agree with nursing and triage notes Were old charts reviewed (outside hosp., previous admission, EMS record, old EKG, old radiological studies, urgent care reports/EKG's, residential records)? Report findings @ -I reviewed old ED visits. Patient has been seen in the emergency department several times for neurologic symptoms Differential Diagnosis (chest pain, altered mental status, abdominal pain women, abdominal pain men, vaginal bleeding, weakness, fever, dyspnea, syncope, heada ran, dizziness, GI bleed, back pain, seizure, CVA, palpatations, mental health, musculoskeletal)? @ -Differential CVA Ischemic stroke, hemorrhagic stroke, brain tumor, atypical migraine, Wernicke's encephalopathy, seizure, multiple sclerosis, meningitis, encephalitis, hypoglycemia, Guillain-Rosales, electrolytes disturbance, myasthenia gravis.... This is not meant to be an all-inclusive list EKG interpreted by me (3pts min.). @ -Yes and demonstrates sinus rhythm with rate of 81.ME interval 124. QRS 89. QTC is 394. No acute ST segment elevations or depressions X-rays interpreted by me (1pt min.). @ -Yes and demonstrates no acute process CT interpreted by me (1pt min.). @ -Yes and demonstrates no acute process U/S interpreted by me (1pt. min.). @ -None done What testing was considered but not performed or refused? (CT, X-rays, U/S, labs)? Why? @ -None What meds were considered but not given or refused? Why? @ -None Did you discuss the management of the patient with other professionals (professionals i.e. [facility], TUBE TRAILER FILLER, lab, RT, psych nurse, social media campaign manager, spinning mule tender, teacher, forest fire officer, case monitor)? Give summary @ -No Was smoking cessation discussed for >3mins.? @ -No Was critical care preformed (if so, how long)? @ -No Were there social determinants of health that impacted care today? How? (Homele ssness, low income, unemployed, alcoholism, drug addiction, transportation, low edu. Level, literacy, decrease access to med. care, [facility], rehab)? @ -No Was there de-escalation of care discussed even if they declined (Discuss DNR or withdrawal of care, Hospice)? DNR status @ -No What co-morbidities impacted this encounter? (DM, HTN, Smoking, COPD, CAD, Cancer, CVA, ARF, Chemo, Hep., AIDS, mental health diagnosis, sleep apnea, morbid obesity)? @ -None Was patient admitted / discharged? Hospital course, mention meds given and route, prescriptions, significant lab abnormalities, going to OR and other pertinent info. @ -Upon arrival patient was placed into room 15. Thorough history and physical exam was performed. NIH was assessed and is negative. IV was established. Laboratory studies are conducted. Patient does go over for CT because of her reported symptoms. Imaging is negative. Symptoms have resolved. Patient will be discharged home and instructed follow up with her neurologist. Return for any new or worsening symptoms. Patient discharged in stable condition Undiagnosed new problem with uncertain prognosis? @ -Yes Drug Therapy requiring intensive monitoring for toxicity (Heparin, Nitro, Insulin, Cardizem)? @ -No Were any procedures done? @ -No Diagnosis/symptom? @ -Acute visual disturbance, acute left arm tingling Acute, or Chronic, or Acute on Chronic? @ -Acute Uncomplicated (without systemic symptoms) or Complicated (systemic symptoms)? @ -Complicated Side effects of treatment? @ -No Exacerbation, Progression, or Severe Exacerbation? @ -No Poses a threat to life or bodily function? How? (Chest pain, USA, PA, pneumonia, PE, COPD, DKA, ARF, appy, cholecystitis, CVA, Diverticulitis, Homicidal, Suicidal, threat to staff... and all critical care pts) @ -No - Lab Data Result diagrams: 10/31/23 12:53 10/31/23 12:53 Lab Results 10/31/23 10/31/23 10/31/23 Range/Units 12:53 12:53 12:53 WBC 5.8 (3.8-10.6) k/uL RBC 4.43 (3.80-5.40) m/uL Hgb 10.0 L (11.4-16.0) gm/dL Hct 31.9 L (34.0-46.0) % MCV 72.1 L (80.0-100.0) fL MCH 22.7 L (25.0-35.0) pg MCHC 31.4 (31.0-37.0) g/dL RDW 15.8 H (11.5-15.5) % Plt Count 364 (150-450) k/uL MPV 8.3 Neutrophils % 60 % Lymphocytes % 29 % Monocytes % 7 % Eosinophils % 1 % Basophils % 1 % Neutrophils # 3.5 (1.3-7.7) k/uL Lymphocytes # 1.7 (1.0-4.8) k/uL Monocytes # 0.4 (0-1.0) k/uL Eosinophils # 0.1 (0-0.7) k/uL Basophils # 0.1 (0-0.2) k/uL Hypochromasia Moderate Microcytosis Moderate PT 10.3 (10.0-12.5) sec INR 0.9 (<1.2) APTT 23.8 (22.0-30.0) sec Sodium 138 (137-145) mmol/L Potassium 4.3 (3.5-5.1) mmol/L Chloride 105 (98-107) mmol/L Carbon Dioxide 18 L (22-30) mmol/L Anion Gap 15 mmol/L BUN 13 (7-17) mg/dL Creatinine 0.64 (0.52-1.04) mg/dL Est GFR (CKD-EPI)AfAm >90 (>60 ml/min/1.73 sqM) Est GFR (CKD-EPI)NonAf >90 (>60 ml/min/1.73 sqM) Glucose 102 H (74-99) mg/dL Calcium 9.5 (8.4-10.2) mg/dL Total Bilirubin 0.3 (0.2-1.3) mg/dL AST 23 (14-36) U/L ALT 27 (4-34) U/L Alkaline Phosphatase 71 (38-126) U/L Creatine Kinase 44 (30-135) U/L Troponin I (0.000-0.034) ng/mL Total Protein 7.4 (6.3-8.2) g/dL Albumin 4.2 (3.5-5.0) g/dL 10/31/23 Range/Units 12:53 WBC (3.8-10.6) k/uL RBC (3.80-5.40) m/uL Hgb (11.4-16.0) gm/dL Hct (34.0-46.0) % MCV (80.0-100.0) fL MCH (25.0-35.0) pg MCHC (31.0-37.0) g/dL RDW (11.5-15.5) % Plt Count (150-450) k/uL MPV Neutrophils % % Lymphocytes % % Monocytes % % Eosinophils % % Basophils % % Neutrophils # (1.3-7.7) k/uL Lymphocytes # (1.0-4.8) k/uL Monocytes # (0-1.0) k/uL Eosinophils # (0-0.7) k/uL Basophils # (0-0.2) k/uL Hypochromasia Microcytosis PT (10.0-12.5) sec INR (<1.2) APTT (22.0-30.0) sec Sodium (137-145) mmol/L Potassium (3.5-5.1) mmol/L Chloride (98-107) mmol/L Carbon Dioxide (22-30) mmol/L Anion Gap mmol/L BUN (7-17) mg/dL Creatinine (0.52-1.04) mg/dL Est GFR (CKD-EPI)AfAm (>60 ml/min/1.73 sqM) Est GFR (CKD-EPI)NonAf (>60 ml/min/1.73 sqM) Glucose (74-99) mg/dL Calcium (8.4-10.2) mg/dL Total Bilirubin (0.2-1.3) mg/dL AST (14-36) U/L ALT (4-34) U/L Alkaline Phosphatase (38-126) U/L Creatine Kinase (30-135) U/L Troponin I <0.012 (0.000-0.034) ng/mL Total Protein (6.3-8.2) g/dL Albumin (3.5-5.0) g/dL Disposition Clinical Impression: Visual disturbance Disposition: HOME SELF-CARE Condition: Stable Instructions (If sedation given, give patient instructions): Blurred Vision (ED) Additional Instructions: Please follow-up with your neurologist for further evaluation of your symptoms. Return for any new or worsening symptoms Is patient prescribed a controlled substance at d/c from ED?: No Referrals: Xavier Gomez DO [Primary Care Provider] - 1-2 days Time of Disposition: 15:26
[2023-10-31 13:49] LABS: ALT 27 U/L (4-34); AST 23 U/L (14-36); African American GFR (CKD) >90 (>60 ml/min/1.73 sqM); Albumin 4.2 g/dL (3.5-5.0); Alkaline Phosphatase 71 U/L (38-126); Anion Gap 15 mmol/L; Blood Urea Nitrogen 13 mg/dL (7-17); Calcium 9.5 mg/dL (8.4-10.2); Carbon Dioxide 18 mmol/L (22-30); Chloride 105 mmol/L (98-107); Creatine Kinase 44 U/L (30-135); Glucose 102 mg/dL (74-99); Non-African American GFR(CKD) >90 (>60 ml/min/1.73 sqM); Potassium 4.3 mmol/L (3.5-5.1); Sodium 138 mmol/L (137-145); Total Bilirubin 0.3 mg/dL (0.2-1.3); Total Protein 7.4 g/dL (6.3-8.2)
[2023-10-31 14:16] LABS: INR 0.9 (<1.2); Partial Thromboplastin Time 23.8 sec (22.0-30.0); Prothrombin Time 10.3 sec (10.0-12.5)
--- NOTE | 2023-10-31 14:33 | CT ---
EXAMINATION TYPE: CT brain wo con DATE OF EXAM: 10/31/2023 COMPARISON: 09/23/2023 HISTORY: 38-year-old female with headache, neurologic deficit, acute, stroke suspected TECHNIQUE: Examination was done in axial plane without intravenous contrast. Coronal and sagittal r econstructions performed. CT DLP: 1084 mGycm Automated exposure control for dose reduction was used. FINDINGS: There is no evidence of acute intracranial hemorrhage, acute ischemic changes, mass, mass-effect, or extra-axial fluid collection. There is no effacement of cerebral sulci or basal subarachnoid cister ns. There is no hydrocephalus. There is no midline shift. Espitia-white matter distinction is preserv ed. Partially visualized mucosal retention cysts right maxillary sinus. Orbits and globes are intact. Mas toid air cells well pneumatized. IMPRESSION: No acute intracranial abnormality seen.
--- NOTE | 2023-10-31 14:34 | XR ---
EXAMINATION TYPE: XR chest 2V DATE OF EXAM: 10/31/2023 COMPARISON: 10/01/2023 HISTORY: 38-year-old female confusion, dizziness, altered mental status TECHNIQUE: PA and lateral views FINDINGS: The cardiomediastinal silhouette, aorta, and pulmonary vasculature are within normal limits. Lungs an d pleural spaces are clear. IMPRESSION: No acute cardiopulmonary process.
--- NOTE | 2023-10-31 14:40 | CT ---
EXAMINATION TYPE: CT angio head neck DATE OF EXAM: 10/31/2023 COMPARISON: Brain same day HISTORY: 38-year-old female neurologic deficit, acute, stroke suspected, dizziness, headache TECHNIQUE: Contiguous axial scanning of the hepatic neck performed with IV Contrast, patient injected with 65 mL of Isovue 370. Coronal and sagittal reconstructions performed. 3-D reconstructions genera bharti on a dedicated independent workstation. CT DLP: 626 mGycm Automated exposure control for dose reduction was used. FINDINGS: Neck: There appears to be a 1.2 cm hypodense nodule right inferior thyroid isthmus. Dedicated thyroid ultra sound evaluation can BE performed on an outpatient basis. Bovine configuration to the aortic arch. The left vertebral artery is dominant. Both vertebral arteries are patent throughout their course. The bilateral common carotid arteries are patent. The left internal carotid artery is patent. There appears to be mild smooth narrowing of the mid right ICA, thin cut axial images through 82 seri es 504 of approximately 25% by NASCET criteria. Brain: Dominant left vertebral artery. The V4 segment right vertebral artery becomes even more hypoplastic. Otherwise, vertebral and basilar arteries are patent as is the remainder of the posterior circulation . The bilateral internal carotid arteries and remainder of the anterior circulation appear patent. No aneurysmal change is identified. Dural venous sinuses are patent. IMPRESSION: Neck: 1. Mild smooth narrowing of the mid right ICA of approximately 25%. Etiology is unclear. There are so me artifacts through this region which may partially account for this finding. 2. Dominant left vertebral artery. 3. No hemodynamically significant internal carotid artery on either side. Head: 4. No large vessel intracranial arterial occlusion, significant stenosis, or aneurysmal changes seen. 5. Dominant left vertebral artery.
[2023-10-31 14:48] LABS: Basophils # (A) 0.1 k/uL (0-0.2); Basophils % (A) 1 %; Eosinophils # (A) 0.1 k/uL (0-0.7); Eosinophils % (A) 1 %; HCT 31.9 % (34.0-46.0); Hypochromasia Moderate; Lymphocytes # (A) 1.7 k/uL (1.0-4.8); Lymphocytes % (A) 29 %; MCH 22.7 pg (25.0-35.0); MCHC 31.4 g/dL (31.0-37.0); MCV 72.1 fL (80.0-100.0); Mean Platelet Volume 8.3; Microcytosis Moderate; Monocytes # (A) 0.4 k/uL (0-1.0); Monocytes % (A) 7 %; Neutrophils # (A) 3.5 k/uL (1.3-7.7); Neutrophils % (A) 60 %; Platelet Count 364 k/uL (150-450); RBC 4.43 m/uL (3.80-5.40); RDW 15.8 % (11.5-15.5); WBC 5.8 k/uL (3.8-10.6)
[2023-10-31] MEDS ORDERED: ONDANSETRON 4 MG/2 ML VIAL IVP STA (14:58)
[2023-10-31 15:10] VITALS: RESP 18
[2023-10-31] MEDS ORDERED: SODIUM CHLORIDE 0.9% 1,000 ML IV ONE (15:23)
[2023-10-31 16:39] VITALS: BP 128/74; PULSE 66; TEMP 97.7
== END 2023-10-31 16:52 | disposition home or self-care (01) ==
LOC: EC 12:07
DX: H53.9 Unspecified visual disturbance (principal); E07.9 Disorder of thyroid, unspecified; Z79.890 Hormone replacement therapy; Z86.59 Personal history of other mental and behavioral disorders
CPT/HCPCS: 99285; 96374; 96361; 36415; 93005; 80053; 82550; 84484; 85025; 85610; 85730; 71046; 70496; 70450; 70498; J2405; Q9967

== ENCOUNTER 2023-12-22 06:58 | Day surgery (SDC) | payer OTHER ==
[2023-12-22] MEDS ORDERED: ONDANSETRON 4 MG/2 ML VIAL IVP PRN (07:00)
[2023-12-22] MEDS: LIDOCAINE 1% (10MG/ML) FOR IV START INTRADERMA PRN (07:32)
[2023-12-22] MEDS: LACTATED RINGERS 1,000 ML IV SCH (07:32)
[2023-12-22] MEDS ORDERED: LIDOCAINE 1% INJ 10MG/ML (20 ML MDV) ONE (07:35)
[2023-12-22] MEDS ORDERED: PROPOFOL 10 MG/ML 20 ML VIAL IV ONE (07:35)
[2023-12-22] MEDS ORDERED: MIDAZOLAM 2 MG/2 ML VIAL ONE (07:35)
[2023-12-22 07:47] VITALS: RESP 16; TEMP 96.9
--- NOTE | 2023-12-22 07:58 | P.PCN ---
Date of Procedure: 12/22/23 Procedure(s) Performed: Brief history: Patient is a pleasant 38-year-old white female scheduled for an elective upper endoscopy as well as colonoscopy as a part of evaluation of GERD/abdominal pain/abdominal bloating and change in bowel habits for the last 5 years duration Procedure performed: Esophagogastroduodenoscopy with biopsy Colonoscopy with biopsy Preoperative diagnosis: Abdominal pain, change in bowel habits and GERD Anesthesia: MAC Procedure: After informed consent was obtained from the patient was brought into the endoscopy unit and IV sedation was administered by anesthesia under continuous monitoring. Initially upper endoscopy was done. The Olympus GF 160 video endoscope was inserted inserted into the mouth and esophagus intubated without any difficulty and was gradually advanced into the stomach and duodenum and carefully examined. The bulb of the duodenum appeared normal. The second part of the duodenum there was a 5 mm duodenal polyp that was biopsied. Also biopsies were done from the second part of the duodenum to evaluate for celiac disease. The scope was then withdrawn into the stomach adequately insufflated with air and upon careful examination the antrum had mild gastritis and biopsies were done from this area. Mucosa of the body, cardia and fundus jaja eared normal. The scope was then withdrawn into the esophagus. The GE junction was located at 40 cm to the incisors. It appeared regular with no erythema erosions or ulcerations. Rest of the esophagus appeared normal. Patient tolerated the procedure well. At this time the patient continued to remain sedation. Initial digital rectal examination was normal. Olympus CF 160 video colonoscope was then inserted into the rectum and gradually advanced to the cecum without any difficulty. Careful examination was performed as the scope was gradually being withdrawn. The prep was excellent. The cecum, ascending colon, transverse colon, descending colon, sigmoid colon and rectum appeared normal. 3 mm proximal rectal polyp that was removed by cold biopsy. Random biopsies were done from ascending and descending colon to rule out microscopic/collagenous colitis. Retroflexion was performed in the rectum and no lesions were noted. Patient tolerated the procedure well. Impression: 1.Upper endoscopy revealed mild antral gastritis and 3-4 mm duodenal polyp in the second part of the duodenum status post biopsy 2.Colonoscopy revealed a 3 mm proximal rectal polyp status post cold biopsy. Recommendations: Findings of this examination were discussed with the patient as well Claudy family. She was advised to follow with the biopsy results. Continue with current medications and follow antireflux measures. If the biopsy of the duodenal polyp reveals adenoma, she can have a repeat follow-up upper endoscopy in 1 year. Recommend repeat screening colonoscopy in 10 years.
[2023-12-22 08:18] VITALS: BP 106/72; PULSE 73
== END 2023-12-22 08:37 | disposition home or self-care (01) ==
LOC: ORWHC2ENDO 06:58
PROVIDERS: ATTEND Internal Medicine Gastroenterology
DX: K31.7 Polyp of stomach and duodenum (principal); K29.50 Unspecified chronic gastritis without bleeding; K62.1 Rectal polyp; K21.9 Gastro-esophageal reflux disease without esophagitis; J45.909 Unspecified asthma, uncomplicated; F41.9 Anxiety disorder, unspecified; E03.9 Hypothyroidism, unspecified; Z87.891 Personal history of nicotine dependence; Z79.899 Other long term (current) drug therapy; Z90.49 Acquired absence of other specified parts of digestive tract; Z79.890 Hormone replacement therapy
CPT/HCPCS: 81025; 88305; 45380; 43239; J2250; J2001; J2704

== ENCOUNTER → 2024-01-01 | Outpatient (CLI) | payer OTHER ==
--- NOTE | 2024-01-01 15:49 | CT ---
EXAMINATION TYPE: CT soft tissue neck w con DATE OF EXAM: 01/01/2024 2:49 PM COMPARISON: None HISTORY: LOCALIZED ENLARGED LYMPH NODES. CT DLP: 625.4 mGycm Automated exposure control for dose reduction was used. CONTRAST: CT scan of the neck is performed following with IV Contrast, patient injected with 100ml mL of Isovue 300. Axial images are obtained, coronal and sagittal reformatted images are reviewed. FINDINGS: There are no supraclavicular lymph nodes. There is no thyroid mass or gross enlargement. The larynx including the cricoid, arytenoid and thyroid cartilages as well as the vocal cords are nor mal and symmetric. The tongue base, epiglottis, aryepiglottic folds, piriform sinuses and vallecula are normal and symme tric. The parotid and submandibular glands are normal and symmetric without focal mass or gross enlargement . There is no pharyngeal or parapharyngeal soft tissue mass or enhancement The great vessels of the neck are normal. There are few scattered nonenlarged jugular lymph nodes and submental lymph nodes but there is no lym phadenopathy. There is no soft tissue swelling, inflammation or abscess. Mild chronic inflammatory changes in the right maxillary sinus. IMPRESSION: 1. No lymphadenopathy within the neck. 2. No significant amount is seen.
--- NOTE | 2024-01-01 16:03 | CT ---
EXAMINATION TYPE: CT ChestAbdPelvis w con DATE OF EXAM: 01/01/2024 COMPARISON: Chest CTA 10/08/[address] abdomen and pelvis dated 10/08/2023 HISTORY: LOCALIZED ENLARGED LYMPH NODES. CT DLP: 2361.5 mGycm Automated exposure control for dose reduction was used. CONTRAST: CT scan of the chest, abdomen and pelvis is performed with Oral Contrast and with IV Contrast, patien t injected with 100ml mL of Isovue 300. FINDINGS: CT chest: There is no suspicious lung mass or nodule. There is no abnormal airspace/consolidative density or abnormal interstitial density. There is no pleural effusion, pleural thickening or pneumothorax. The great vessels and chest are normal there is no mediastinal, hilar or axillary adenopathy. No focal osseous lesions are seen. CT abdomen and pelvis: There is surgical absence of the gallbladder.. There is no biliary ductal dilatation. There is no focal mass or organomegaly involving the liver, pancreas, spleen or adrenal glands.. There is no solid renal mass or hydronephrosis. There is no retroperitoneal adenopathy or hemorrhage in the caliber of the abdominal aorta is normal. The bowel loops are normal in caliber and there is no dilatation or obstruction. No inflammatory mejia ges identified in the bowel wall and mesentery. There is no free intracranial air or fluid. There is a stable 1.1 mm mesenteric lymph node in the right lower quadrant of the abdomen. There are 2 new lymph nodes including a 1.6 cm enlarged lymph node in the right iliac chain and a 1.4 cm lymph node in the right superficial inguinal region. No focal osseous lesions are seen. IMPRESSION: 1. No significant amount is seen within the chest with no evidence of acute cardiopulmonary disease o r adenopathy. 2. New right iliac chain lymph nodes as described above. Stable single mildly enlarged right lower qu adrant mesenteric lymph node. 3. No definite splenomegaly as noted on the prior study..
== END | disposition home or self-care (01) ==
LOC: RADCTMAIN 12:30
PROVIDERS: ATTEND Internal Medicine
DX: R59.0 Localized enlarged lymph nodes (principal)
CPT/HCPCS: 70491; 71260; 74177; Q9967

== ENCOUNTER → 2024-03-23 | Outpatient (CLI) | payer OTHER ==
--- NOTE | 2024-03-23 17:50 | US ---
EXAMINATION TYPE: US groin BILAT DATE OF EXAM: 03/23/2024 COMPARISON: CT chest abdomen and pelvis 01/01/2024 CLINICAL INDICATION: Female, 38 years old with history of R59.0 LOCALIZED ENLARGED LYMPH NODES; origi nal radiologist impression for CT ChestAbdPelvis noted an enlarged iliac chain lymph node. Addended r eport correlates this area as the right ovary. Pt. here for follow up ultrasound of enlarged iliac chain lymph node TECHNIQUE: Several grayscale and color Doppler images taken at area of concern. FINDINGS: There is a normal appearing lymph node at the right groin. The right ovary is imaged as this is the area measured on prior CT. The ovary measures 2.5x1.4x1.3cm and is moderately far lateral in the adnexa. Demonstrates a normal ultrasound appearance. Pt. Had la rge endometrioma removed from this side in 2017 Left groin appears wnl. No lymphadenopathy noted in the bilateral inguinal regions IMPRESSION: No pathologic lymphadenopathy noted corresponding with addended CT report.
== END | disposition home or self-care (01) ==
LOC: RADUSWWP 09:06
PROVIDERS: ATTEND Internal Medicine
DX: D50.9 Iron deficiency anemia, unspecified (principal); R59.0 Localized enlarged lymph nodes; R00.0 Tachycardia, unspecified; E03.9 Hypothyroidism, unspecified
CPT/HCPCS: 76882

== ENCOUNTER → 2024-07-06 | Outpatient (CLI) | payer OTHER ==
--- NOTE | 2024-07-06 11:55 | US ---
EXAMINATION TYPE: US carotid duplex BILAT DATE OF EXAM: 07/06/2024 COMPARISON: NONE CLINICAL INDICATION: Female, 38 years old with history of I63.9 STROKE; possible stroke 4 years ago TECHNIQUE: Carotid duplex ultrasound examination. Indirect Doppler criteria was utilized. 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 Criteria for Assigning % of Stenosis / Diameter reduction (Estimation based on the indirect measurements of the internal carotid artery velocities (ICA PSV). 1. Normal (no stenosis)=ICA PSV < 125 cm/s: ratio < 2.0: ICA EDV<40 cm/s. 2. Less than 50% stenosis=ICA PSV < 125 cm/s: ratio < 2.0: ICA EDV<40 cm/s. 3. 50 to 69% stenosis=ICA PSV of 125 to 230 cm/s: ration 2.0 ? 4.0: ICA EDV 40-100 cm/s. 4. Greater than 70% stenosis to near occlusion= ICA PSV > 230 cm/s: ratio > 4.0: ICA EDV > 100 cm/s. 5. Near occlusion= ICA PSV velocities may be low or undetectable: variable ratio and ICA EDV. 6. Total occlusion=unable to detect flow.
== END | disposition home or self-care (01) ==
LOC: RADUSWWP 09:43
PROVIDERS: ATTEND Psychiatry & Neurology Neurology
DX: I63.9 Cerebral infarction, unspecified (principal)
CPT/HCPCS: 93880

== ENCOUNTER 2024-07-18 08:00 | Emergency (ER) | payer OTHER ==
[2024-07-18 08:03] VITALS: RESP 18; TEMP 98.1
--- NOTE | 2024-07-18 08:28 | ED ---
Chest Pain HPI - General Chief Complaint: Chest Pain Stated Complaint: Chest/Shoulder Pain Time Seen by Provider: 07/18/24 08:08 Source: patient, RN notes reviewed Mode of arrival: wheelchair Limitations: no limitations - History of Present Illness Initial Comments: This is a 38 year old female who presents to the emergency department for chest pain. Patient states that around 2:30 AM she woke up with pain, tightness, and burning, in the left side of her chest. States that it seemed to go into her shoulder blades and to her arms. Her hands felt sweaty during this time as well. This only lasted a few minutes and then started to improve. She was unsure if it was a muscle or cardiac related. Denies any shortness of breath or history of similar symptoms in the past. She still has a mild ache in this region, but otherwise symptoms have improved substantially. Reports a family history of cardiac problems in her grandmother. MD Complaint: chest pain - Related Data Home Medications Medication Instructions Recorded Confirmed norgestimate-ethinyl estradioL 1 tab PO HS 11/02/17 03/09/24 [Sprintec 28 Day Tablet] Levothyroxine Sodium [Synthroid] 50 mcg PO DAILY 06/17/18 03/09/24 Allergies Allergy/AdvReac Type Severity Reaction Status Date / Time No Known Allergies Allergy Verified 07/18/24 08:03 Review of Systems ROS Statement: Those systems with pertinent positive or pertinent negative responses have been documented in the HPI. ROS Other: All systems not noted in ROS Statement are negative. Past Medical History Past Medical History: CVA/TIA, Liver Disease, Thyroid Disorder Additional Past Medical History / Comment(s): inguinal hernia x2 rt side, endometriosis with KIRBY drain , DDD, dextrosciolosis, buldging discs in back and neck. Brain swellling, bilat hearing delay due to covid in SEP 2023, hypothyroidism, TIA 2023, iron deficiency anemia, fatty liver disease, History of Any Multi-Drug Resistant Organisms: MRSA Date of last positivie culture/infection: 08/2011 MDRO Source:: right thigh Past Surgical History: Adenoidectomy, Section, Cholecystectomy, Hernia Repair, Tonsillectomy Additional Past Surgical History / Comment(s): d and C, removal of endometrioma Past Anesthesia/Blood Transfusion Reactions: No Reported Reaction Past Psychological History: Anxiety, Depression Smoking Status: Former smoker - Past Family History Son(s) Additional Family Medical History / Comment(s): autism Grandmother Family Medical History: Blood Disorder, Congestive Heart Failure (CHF), Diabetes Mellitus, Hyperlipidemia General Exam Limitations: no limitations General appearance: alert, in no apparent distress Head exam: Present: atraumatic, normocephalic, normal inspection Respiratory exam: Present: normal lung sounds bilaterally. Absent: respiratory distress, wheezes, rales, rhonchi, stridor Cardiovascular Exam: Present: regular rate, normal rhythm, normal heart sounds. Absent: systolic murmur, diastolic murmur, rubs, gallop, clicks Neurological exam: Present: alert, oriented X3, CN II-XII intact Psychiatric exam: Present: normal affect, normal mood Skin exam: Present: warm, dry, intact, normal color. Absent: rash Course Vital Signs 07/18/24 07/18/24 07/18/24 08:01 08:10 08:16 Temperature 98.1 F Pulse Rate 84 77 Pulse Rate [ 84 Stitcher Feeder ] Respiratory 18 18 Rate Blood Pressure 134/86 116/78 O2 Sat by Pulse 99 98 Oximetry 07/18/24 09:55 Temperature Pulse Rate 68 Pulse Rate [ Stitcher Feeder ] Respiratory 18 Rate Blood Pressure 130/85 O2 Sat by Pulse 99 Oximetry Chest Pain [facility] This is a 38 year old female who presents to the emergency department for chest pain. Was pt. sent in by a medical professional or institution? @ -No Did you speak to anyone other than the patient for history? @ -No Did you review nursing and triage notes? @ -Yes, and I agree, it is accurate with regards to the patient's symptoms. Were old charts reviewed? @ -No Differential Diagnosis? @ -Differential Chest Pain: Stable Angina, Unstable Angina, STEMI, NSTEMI Aortic Dissection, Pneumothorax, Musculoskeletal, Esophageal Spasm GERD, Cholecystitis, Pancreatitis, Zoster, this is not meant to be an all-inclusive list. EKG interpreted by me (3pts min.)? @ -EKG interpreted by me demonstrating the following: Sinus rhythm. Ventricular rate 84 bpm, CO interval 133 ms, QRS duration 89 ms, QTc 394 ms. X-rays interpreted by me (1pt min.)? @ -Chest x-ray obtained, my interpretation identifies no localized consolidatio ns or infiltrates. CT interpreted by me (1pt min.)? @ -Not obtained U/S interpreted by me (1pt. min.)? @ -Not obtained What testing was considered but not performed? (CT, X-rays, U/S, labs)? Why? @ -None What meds were considered but not given? Why? @ -None Did you discuss the management of the patient with other professionals? @ -No Did you reconcile home meds? @ -No Was smoking cessation discussed for >3mins.? @ -No Was critical care preformed (if so, how long)? @ -No Were there social determinants of health that impacted care today? How? (Homelessness, low income, unemployed, alcoholism, drug addiction, transportation, low edu. Level, literacy, decrease access to med. care, skilled nursing, rehab)? @ -No Was there de-escalation of care discussed even if they declined? (Discuss DNR or withdrawal of care, Hospice)? @ -No What co-morbidities impacted this encounter? (DM, HTN, Smoking, COPD, CAD, Cancer, CVA, Hep., AIDS, mental health diagnosis, sleep apnea, morbid obesity)? @ -None Was patient admitted / discharged? @ -Discharged. Lab work unremarkable including a negative troponin. Chest x- ray reveals no acute process. Patient was essentially asymptomatic while in the emergency department aside from mild discomfort and did not require the need of any pain medication. She was treated with IV fluids. Patient is young and has a low heart score, and was able to be discharged home. Advised close follow-up with her primary care provider for reevaluation and she was given strict return parameters. Case discussed with ED attending Dr. Rodriguez. Return precautions reviewed in depth, the patient is instructed to return to the emergency department with any new, worsening, or concerning symptoms. Patient verbalized understanding. Undiagnosed new problem with uncertain prognosis? @ -None Drug Therapy requiring intensive monitoring for toxicity (Heparin, Nitro, Insulin, Cardizem)? @ -None Were any procedures done? @ -None Diagnosis/symptom? @ -Chest pain Acute, or Chronic, or Acute on Chronic? @ -Acute Uncomplicated (without systemic symptoms) or Complicated (systemic symptoms)? @ -Uncomplicated Side effects of treatment? @ -None Exacerbation, Progression, or Severe Exacerbation] @ -Not applicable Poses a threat to life or bodily function? @ -Unlikely Disposition Clinical Impression: Chest pain Disposition: HOME SELF-CARE Instructions (If sedation given, give patient instructions): Chest Pain (ED), Noncardiac Chest Pain (ED) Additional Instructions: Return to the emergency department with any new, worsening, or concerning symptoms. Follow up with your primary care provider in 1-2 days. Is patient prescribed a controlled substance at d/c from ED?: No Referrals: Xavier Gomez DO [Primary Care Provider] - 1-2 days Time of Disposition: 09:40
[2024-07-18 08:38] LABS: Basophils # (A) 0.1 k/uL (0-0.2); Basophils % (A) 1 %; Eosinophils # (A) 0.3 k/uL (0-0.7); Eosinophils % (A) 3 %; HCT 39.8 % (34.0-46.0); HGB 13.5 gm/dL (11.4-16.0); Lymphocytes # (A) 1.7 k/uL (1.0-4.8); Lymphocytes % (A) 22 %; MCH 29.6 pg (25.0-35.0); MCHC 33.8 g/dL (31.0-37.0); MCV 87.5 fL (80.0-100.0); Mean Platelet Volume 6.7; Monocytes # (A) 0.5 k/uL (0-1.0); Monocytes % (A) 6 %; Neutrophils # (A) 5.2 k/uL (1.3-7.7); Neutrophils % (A) 66 %; Platelet Count 347 k/uL (150-450); RBC 4.55 m/uL (3.80-5.40); WBC 7.9 k/uL (3.8-10.6)
[2024-07-18 08:48] LABS: Partial Thromboplastin Time 26.8 sec (22.0-30.0); Prothrombin Time 10.8 sec (10.0-12.5)
--- NOTE | 2024-07-18 08:51 | XR ---
EXAMINATION TYPE: XR chest 2V DATE OF EXAM: 07/18/2024 COMPARISON: 10/31/2023 HISTORY: Chest pain TECHNIQUE: Frontal and lateral views of the chest are obtained. FINDINGS: There is no focal air space opacity. No evidence for pneumothorax. No pleural effusion. The cardiac silhouette size is within normal limits. The osseous structures are grossly intact. IMPRESSION: 1. No acute cardiopulmonary process.
[2024-07-18] MEDS: SODIUM CHLORIDE 0.9% 1,000 ML IV STA (09:02)
[2024-07-18 09:08] LABS: ALT 26 U/L (4-34); AST 25 U/L (14-36); African American GFR (CKD) >90 (>60 ml/min/1.73 sqM); Albumin 4.3 g/dL (3.5-5.0); Alkaline Phosphatase 62 U/L (38-126); Anion Gap 7 mmol/L; Blood Urea Nitrogen 10 mg/dL (7-17); Calcium 9.3 mg/dL (8.4-10.2); Carbon Dioxide 27 mmol/L (22-30); Chloride 103 mmol/L (98-107); Glucose 110 mg/dL (74-99); Lipase 125 U/L (23-300); Magnesium 1.8 mg/dL (1.6-2.3); Non-African American GFR(CKD) >90 (>60 ml/min/1.73 sqM); Sodium 137 mmol/L (137-145); Total Bilirubin 0.6 mg/dL (0.2-1.3); Total Protein 7.4 g/dL (6.3-8.2)
[2024-07-18 09:57] VITALS: BP 130/85; PULSE 68
== END 2024-07-18 09:56 | disposition home or self-care (01) ==
LOC: EC 08:00
CPT/HCPCS: 36415; 71046; 80053; 83690; 83735; 84484; 85025; 85610; 85730; 93005; 99285